=== PATIENT | female | born 1940 | race Caucasian/White ===

== ENCOUNTER 2019-02-08 16:23 | Inpatient (IN) | payer MEDICARE ==
[~2019-02-08] VITALS: Ht 154.9 cm; Wt 107.2 kg
--- NOTE | 2019-02-08 16:39 | PHYS DOC ---
Adult General Chief Complaint Chief Complaint: SHORTNESS OF BREATH HPI HPI Patient is a 79 year old female who presents with complaining of coughing about and low oxygen. Patient is a resident of associated living home and complaining of several episodes of hemoptysis this morning with mix of bright red blood and mucus with few episode this afternoon. Patient complaining of marked shortness of breath without chest pain, fever, lower extremity edema or pain, sore throat , nasal congestion. The facility staff reported that patient had O2 sat of 88-91 % on her usual 3 L of oxygen and her primary care physician, Dr. Atkinson was informed and recommended to send patient to ER for evaluation. Review of Systems Review of Systems Constitutional: Denies fever or chills [] Eyes: Denies change in visual acuity, redness, or eye pain [] HENT: Denies nasal congestion or sore throat [] Respiratory: Reports cough and shortness of breath[] Cardiovascular: No additional information not addressed in HPI [] GI: Denies abdominal pain, nausea, vomiting, bloody stools or diarrhea [] : Denies dysuria or hematuria [] Musculoskeletal: Denies back pain or joint pain [] Integument: Denies rash or skin lesions [] Neurologic: Denies headache, focal weakness or sensory changes [] Endocrine: Denies polyuria or polydipsia [] All other systems were reviewed and found to be within normal limits, except as documented in this note. Physical Exam Physical Exam Constitutional: Well developed, well nourished, mild distress, non-toxic appearance. [] HENT: Normocephalic, atraumatic, oropharynx moist, no oral exudates, nose normal. [] Eyes: PERRLA, EOMI, conjunctiva normal, no discharge. [] Neck: Normal range of motion, no tenderness, supple, no stridor. [] Cardiovascular:Heart rate regular rhythm, no murmur [] Lungs & Thorax: Mild bilateral rhonchi with decreased air movement, no respiratory distress or intercostal retraction or wheezing[] Abdomen: Bowel sounds normal, soft, no tenderness, no masses, no pulsatile masses. [] Skin: Warm, dry, no erythema, no rash. [] Back: No tenderness, no CVA tenderness. [] Extremities: No tenderness, no cyanosis, no clubbing, ROM intact, no edema. [] Neurologic: Alert and oriented X 3, normal motor function, normal sensory function, no focal deficits noted. [] Psychologic: Affect normal, judgement normal, mood normal. [] EKG EKG EKG interpreted by me. EKG at 1648 showed normal sinus rhythm at rate of 78, no acute ST and T-wave abnormalities. Radiology/Procedures Radiology/Procedures [address] [address] IMAGING REPORT Signed PATIENT: BOBBI EASTMAN ACCOUNT: [id number] : 1940 LOCATION: ER AGE: 79 SEX: F EXAM STATUS: REG ER ORD. PHYSICIAN: PAUL CLEMONS MD REASON: shortness of breath PROCEDURE: CHEST PA & LATERAL EXAM: PA and Lateral Views of the Chest DATE: 02/08/2019 4:40 PM INDICATION: COUGH, SHORT OF BREATH, COUGHED UP BLOOD THIS MORNING, HX COPD. FORMER SMOKER COMPARISON: 12/13/2018 FINDINGS/ IMPRESSION: 1. The heart is not enlarged. 2. Atherosclerotic calcifications of the tortuous aorta are seen. 3. No lobar consolidation. Linear opacities in the lung bases likely subsegmental atelectasis or scarring. 4. Although no obvious lung mass is identified, CT is more sensitive. 5. No pleural effusion or pneumothorax. Electronically signed by: Mason Lunsford MD (02/08/2019 5:20 PM) [facility] DICTATED AND SIGNED BY: MASON LUNSFORD MD DATE: 02/08/19 7974 CC: PAUL CLEMONS MD; JACE ATKINSON MD ~ Course & Med Decision Making Course & Med Decision Making Pertinent Labs and Imaging studies reviewed. (See chart for details) Evaluation of patient in ER showed 79-year-old female patient with complaining of hemoptysis and hypoxia since this morning. Patient had O2 sat of 91% on 3 L of oxygen that improved with nebulizer treatment and Solu-Medrol to 98%. Patient did not have lower extremity edema or tenderness. D-dimer was markedly elevated. Plan to obtain VQ scan and admit patient with diagnosis of COPD exacerbation. Dr. Atkinson accepted admission at 1750. Dragon Disclaimer Dragon Disclaimer This electronic medical record was generated, in whole or in part, using a voice recognition dictation system. Departure Departure: Impression: Primary Impression: COPD exacerbation Additional Impressions: Hemoptysis Hypoxia Renal insufficiency Disposition: ADMITTED INPATIENT (at 1755) Admitting Physician: Jace Atkinson (accepted admission at 1750) Condition: IMPROVED Referrals: JACE ATKINSON MD (PCP) Problem Qualifiers PAUL CLEMONS MD Feb 08, 2019 16:39
[2019-02-08] MEDS ORDERED: IPRATRPIUM/ALBUTEROL 0.5/2.5MG 3 ML NEBU. NEB ONE (17:00)
[2019-02-08] MEDS ORDERED: methylPREDNISolone SOD SUCC PF 125 MG/2 ML VIAL. IV ONE (17:00)
[2019-02-08 17:14] LABS: BGAS PH 7.45 (7.35-7.45)
[2019-02-08 17:18] LABS: BASO # 0.1 x10^3/uL (0.0-0.2); BASO % 1 % (0-3); EOS # 0.2 x10^3/uL (0.0-0.7); EOS % 2 % (0-3); HEMATOCRIT 37.5 % (36.0-47.0); HEMOGLOBIN 12.8 g/dL (12.0-15.5); LYMPH # 1.8 x10^3/uL (1.0-4.8); LYMPH % 18 % (24-48); MEAN CORPUSCULAR HEMOGLOBIN 31 pg (25-35); MEAN CORPUSCULAR HGB CONC 34 g/dL (31-37); MEAN CORPUSCULAR VOLUME 92 fL (79-100); MONO # 0.9 x10^3/uL (0.0-1.1); MONO % 9 % (0-9); NEUT # 6.9 x10^3uL (1.8-7.7); NEUT % 70 % (31-73); PLATELET COUNT 268 x10^3/uL (140-400); RED BLOOD COUNT 4.07 x10^6/uL (3.50-5.40); RED CELL DISTRIBUTION WIDTH 14.7 % (11.5-14.5); WHITE BLOOD COUNT 9.8 x10^3/uL (4.0-11.0)
--- NOTE | 2019-02-08 17:23 | RAD ---
EXAM: PA and Lateral Views of the Chest DATE: 02/08/2019 4:40 PM INDICATION: COUGH, SHORT OF BREATH, COUGHED UP BLOOD THIS MORNING, HX COPD. FORMER SMOKER COMPARISON: 12/13/2018 FINDINGS/ IMPRESSION: 1. The heart is not enlarged. 2. Atherosclerotic calcifications of the tortuous aorta are seen. 3. No lobar consolidation. Linear opacities in the lung bases likely subsegmental atelectasis or scarring. 4. Although no obvious lung mass is identified, CT is more sensitive. 5. No pleural effusion or pneumothorax. Electronically signed by: Mason Baltazar MD (02/08/2019 5:20 PM) [facility]
[2019-02-08 17:31] LABS: ALBUMIN 3.5 g/dL (3.4-5.0); ALBUMIN/GLOBULIN RATIO 0.9 (1.0-1.7); CALCIUM 9.8 mg/dL (8.5-10.1); CREATININE 1.5 mg/dL (0.6-1.0); GFR 33.4; POTASSIUM 4.3 mmol/L (3.5-5.1); TOTAL BILIRUBIN 0.3 mg/dL (0.2-1.0); TOTAL PROTEIN 7.6 g/dL (6.4-8.2)
[2019-02-08 18:53] VITALS: BP 119/73
[2019-02-08] MEDS ORDERED: SPIR25TA5 PO (19:19)
[2019-02-08] MEDS ORDERED: LEVO150T5 PO (19:19)
[2019-02-08] MEDS ORDERED: METO2.5T PO (19:19)
[2019-02-08] MEDS ORDERED: IPRA3AMP29 NEB (19:19)
[2019-02-08] MEDS ORDERED: MULT-503 PO (19:19)
[2019-02-08] MEDS ORDERED: GABA-586 PO (19:19)
[2019-02-08] MEDS ORDERED: ACET325T9 PO (19:19)
[2019-02-08] MEDS ORDERED: BUDE10.2 IH (19:19)
[2019-02-08] MEDS ORDERED: vitamin b6 PO (19:19)
[2019-02-08] MEDS ORDERED: ROPI0.5T PO (19:19)
[2019-02-08] MEDS ORDERED: FURO-68 PO (19:19)
[2019-02-08] MEDS ORDERED: FEBU40TA PO (19:26)
[2019-02-08] MEDS ORDERED: DOCU-153 PO (19:26)
[2019-02-08] MEDS ORDERED: POTA20TA4 PO (19:26)
[2019-02-08] MEDS ORDERED: FEBU80TA2 PO (19:26)
[2019-02-08] MEDS ORDERED: ATOR20TA58 PO (19:26)
[2019-02-08] MEDS ORDERED: DEXL60CA2 PO (19:26)
[2019-02-08] MEDS ORDERED: MAGN400C PO (19:26)
[2019-02-08] MEDS ORDERED: ASPI-630 PO (19:26)
[2019-02-08] MEDS ORDERED: TRIA1CAP3 PO (19:26)
[2019-02-08] MEDS ORDERED: ESCITALOPRAM OXA5 MG PO (19:26)
[2019-02-08] MEDS ORDERED: MULT1TAB52 PO (19:26)
[2019-02-08] MEDS ORDERED: FERR89TA PO (19:26)
[2019-02-08] MEDS ORDERED: GABA-585 PO (19:26)
[2019-02-08] MEDS ORDERED: ATEN25TA42 PO (19:26)
[2019-02-08] MEDS ORDERED: LEVO75TA5 PO (19:26)
[2019-02-08] MEDS ORDERED: UMEC62.5 IH (19:26)
[2019-02-08] MEDS ORDERED: ACETAMINOPHEN 325 MG TABLET PO PRN (20:15)
[2019-02-08] MEDS: IPRATRPIUM/ALBUTEROL 0.5/2.5MG 3 ML NEBU. NEB SCH (20:34)
[2019-02-08] MEDS ORDERED: NON FORMULARY ITEM (Budesonide/Formoterol Fumarate (Symbicort 160-4.5 Mcg Inhaler) 2 PUFF) IH SCH (21:00)
[2019-02-08] MEDS ORDERED: rOPINIRole 0.5 MG TABLET. PO SCH (21:00)
[2019-02-08] MEDS: FUROSEMIDE 40 MG TABLET PO SCH (21:35)
[2019-02-08] MEDS: MAGNESIUM OXIDE 400 MG TABLET PO SCH (21:35)
[2019-02-08] MEDS: ATORVASTATIN CALCIUM 20 MG TABLET PO SCH (21:35)
[2019-02-08] MEDS: POTASSIUM CHLORIDE 20 MEQ TABLET.ER. PO SCH (21:35)
[2019-02-08] MEDS: GABAPENTIN 300 MG CAPSULE. PO SCH (21:36)
[2019-02-08] MEDS: rOPINIRole 1 MG TABLET. PO SCH (21:36)
[2019-02-08] MEDS: GABAPENTIN 100 MG CAPSULE. PO SCH (21:36)
[2019-02-08 22:14] VITALS: BP 99/52
--- NOTE | 2019-02-08 23:13 | RAD ---
Lung scan 02/08/2019 CLINICAL HISTORY: Elevated d-dimer. Shortness of breath. TECHNIQUE: After the administration of 18.5 mCi of xenon-133 gas, ventilation images of both lungs were obtained using radionuclide. After the intravenous administration of 6.2 mCi technetium 99m MAA, perfusion images of both lungs were obtained using the gamma camera. FINDINGS: Comparison is made to PA and lateral chest radiographs from earlier today. This demonstrate borderline cardiomegaly. Left basilar subsegmental atelectasis is noted. No area of consolidation is seen. Homogeneous ventilation/perfusion to both lungs is seen. No perfusion defect is noted. These findings are consistent with a normal lung scan. IMPRESSION: Normal lung scan. Electronically signed by: Markell Rondon MD (02/08/2019 11:11 PM) [facility]
[2019-02-09] MEDS: IPRATRPIUM/ALBUTEROL 0.5/2.5MG 3 ML NEBU. NEB SCH ×5 (04:46→20:09)
[2019-02-09 05:22] VITALS: BP 119/72
[2019-02-09] MEDS ORDERED: LEVOTHYROXINE 150 MCG TABLET PO SCH (06:00)
[2019-02-09] MEDS ORDERED: MULTIVITS TH W FE OTHER MIN PO SCH (09:00)
[2019-02-09] MEDS ORDERED: FEBUXOSTAT 40 MG TABLET PO SCH (09:00)
[2019-02-09] MEDS ORDERED: NON FORMULARY ITEM (Umeclidinium Bromide (Incruse Ellipta) 62.5 MCG) IH SCH (09:00)
[2019-02-09] MEDS: CITALOPRAM 10 MG TABLET. PO SCH (09:02)
[2019-02-09] MEDS: TRIAMTERENE/HCTZ 37.5/25MG TABLET. PO SCH (09:02)
[2019-02-09] MEDS: GABAPENTIN 100 MG CAPSULE. PO SCH ×2 (09:02→20:58)
[2019-02-09] MEDS: PANTOPRAZOLE 40 MG TABLET. PO SCH (09:03)
[2019-02-09] MEDS: SPIRONOLACTONE 25 MG TABLET PO SCH (09:03)
[2019-02-09] MEDS: DOCUSATE SODIUM 100 MG CAPSULE PO SCH ×2 (09:03→21:03)
[2019-02-09] MEDS: POTASSIUM CHLORIDE 20 MEQ TABLET.ER. PO SCH ×3 (09:03→21:02)
[2019-02-09] MEDS: ASPIRIN 81 MG TAB.CHEW PO SCH (09:03)
[2019-02-09] MEDS: FERROUS SULFATE 325 MG TABLET. PO SCH (09:03)
[2019-02-09] MEDS: ATENOLOL 25 MG TABLET PO SCH (09:04)
[2019-02-09] MEDS: FUROSEMIDE 40 MG TABLET PO SCH ×2 (09:04→21:00)
[2019-02-09] MEDS: PYRIDOXINE 50 MG TABLET. PO SCH (09:04)
[2019-02-09] MEDS: MULTIVITAMIN with MINERAL TABLET. PO SCH (09:04)
--- NOTE | 2019-02-09 09:15 | EKG ---
[address] [address] Test Date: 2019-02-08 Test Time: 16:48:21 Pat Name: BOBBI EASTMAN Department: Room: 123 A Gender: F Office Technologist: DONALD : 1940 Requested By: PAUL CLEMONS Order Number: [id number] Reading MD: Nikunj Lopez MD Measurements Intervals Dell Rate: 78 P: 61 ND: 194 QRS: 10 QRSD: 76 T: 64 QT: 398 QTc: 457 Interpretive Statements SINUS RHYTHM Electronically Signed On 02-12-2019 21:57:35 CDT by Nikunj Lopez MD
[2019-02-09 10:27] VITALS: BP 113/67
[2019-02-09] MEDS: BUDESONIDE 0.5 MG/2 ML NEBU NEB SCH ×2 (10:33→20:09)
[2019-02-09] MEDS ORDERED: ACETAMINOPHEN 500 MG TABLET PO PRN (11:00)
[2019-02-09 14:50] VITALS: BP 143/72
--- NOTE | 2019-02-09 15:01 | HP ---
ADMIT DATE: 02/08/2019 HISTORY OF PRESENT ILLNESS: The patient is an 79-year-old female patient, resident at [facility] who has been complaining of recurrent bouts of cough together with hemoptysis. She is also complaining of increasing shortness of breath, but denied any chest pain, denied chills, rigors or fever. Denied any swelling of the legs. Her oxygen saturation was only 88% on 3 liters of oxygen. The patient was evaluated in the Emergency Room where she had had lab work as well as V/Q scan. Her blood gases showed that she is somewhat hypoxic. White cell count was normal and her D-dimer was slightly elevated at 0.63 and therefore, she underwent V/Q scan, which likely did show that there is a homogeneous ventilation perfusion to both lungs. No perfusion defect is noted. These findings are consistent with a normal lung scan. The patient was admitted with COPD exacerbation and was continued on all her medication. She was started on ceftriaxone and methylprednisolone use. We will follow her and monitor her closely. PAST MEDICAL HISTORY: Significant for chronic hypoxic respiratory failure for which she is on home oxygen at 3 liters nasal cannula, chronic obstructive pulmonary disease, chronic diastolic congestive heart failure with ejection fraction on echocardiogram of 50-55%. She has obstructive sleep apnea, chronic bilateral lower extremity edema versus venous insufficiency, hypertension that seems to be well controlled, type 2 diabetes mellitus with hemoglobin A1c at 7.3% for which she was started on Amaryl. She has hyperlipidemia. She did have chronic kidney injury with a serum creatinine of 1.5. PAST SURGICAL HISTORY: Significant for appendectomy, right knee arthroscopic surgery, bilateral cataract extraction, right total knee arthroplasty, left total knee arthroplasty with revision. She has tonsillectomy, oophorectomy, left heart catheterization, right carotid endarterectomy. FAMILY HISTORY: Noncontributory. SOCIAL HISTORY: She is , lives at the assisted living facility. She quit smoking years ago. She does not drink alcohol or use any recreational drugs. REVIEW OF SYSTEMS: The patient denied any blurring of vision. She did have bilateral cataract extraction, but denied any glaucoma or macular degeneration. Denied any earache, tinnitus or sensorineural deafness. Denied any nosebleeds, stuffy nose or postnasal drip. Denied any sore throat, sore tongue, toothache, hoarseness of voice or difficulty swallowing. Denied any nausea, vomiting, diarrhea or constipation. Denied any hematemesis, melena or hematochezia. Denied any dysuria, frequency or hematuria. She is known to have postmenopausal bleeding and is also known to have endometrial dysplasia for which she is scheduled to have total abdominal hysterectomy and bilateral salpingo-oophorectomy at [facility] on 02/27/2019. She did complain of shortness of breath, cough with hemoptysis, but denied any chest pain. Did complain of orthopnea, paroxysmal nocturnal dyspnea. Denied any chills, rigors or fever. PHYSICAL EXAMINATION: GENERAL: On arrival to the Emergency Room, she looked well and was clearly in no apparent respiratory distress, pale, but no jaundice, cyanosis, or thyromegaly. No jugular venous distension. No lower limb edema. VITAL SIGNS: Her heart rate was 88, blood pressure was 132/61, temperature was 98.2, respiratory rate was 18 and oxygen saturation was 90%. HEAD, EYES, EARS, NOSE, AND THROAT: Showed normocephalic, atraumatic. NECK: Supple. HEART: Showed normal first and second heart sounds. No gallop, rub or murmur. CHEST: Shows central trachea, equally reduced expansion, reduced increase sounds with scattered bilateral diffuse rhonchi as well as crepitation mostly in the right side posteriorly. ABDOMEN: Distended, soft, nontender. No guarding or rigidity. No organomegaly. All hernial orifice intact. Bowel sounds normal. NEUROLOGIC: She is awake, alert, responding appropriately. Cranial nerves intact. EXTREMITIES: She moves extremities without difficulty. She ambulates with a walker. LABORATORY DATA: On arrival showed blood gases with a pH of 7.45, pCO2 of 41, pO2 of 67, bicarbonate 29 and oxygen saturation was 94% on FiO2 of 32%. Her white cell count was 9800, hemoglobin 12.8, hematocrit 37, MCV 92, and platelet count 268,000. Her serum sodium was 139, potassium 4.3, chloride 100, bicarbonate 31, anion gap of 8, BUN 32, creatinine 1.5, estimated GFR was 33 mL per minute. Her glucose was 95, calcium was 9.8. Total bilirubin, AST, ALT, alkaline phosphatase were normal. Her troponin was less than 0.017. Beta natriuretic peptide was 133. Total protein was 7.6, albumin 3.5. Her prothrombin time was 9.8, INR of 1, aPTT was 28 and D-dimer was 0.63. Her nasal screen for MRSA PCR was negative. Her chest x-ray showed that the heart is not enlarged. She has atherosclerotic calcification of the tortuous aorta is seen. No lobar consolidation linear opacities in the lung bases, likely subsegmental atelectasis or scarring. There is no obvious lung mass identified. No pleural effusion or pneumothorax. Given that her D-dimer was slightly elevated and she has hemoptysis and her kidney function is abnormal, we did a ventilation perfusion scan, which showed that there is homogenous ventilation/perfusion to both lungs. No perfusion defect is noted. These findings are consistent with a normal lung scan. ASSESSMENT AND PLAN: The patient was admitted with acute bronchitis with hemoptysis, chronic obstructive pulmonary disease exacerbation, acute on chronic hypoxic respiratory failure. She was started on IV Solu-Medrol as well as ceftriaxone and Zithromax. We will continue with her all medications. Follow her closely. ANDRÉS HERNANDEZ MD DR: JENNIFER/shari JOB#: [id number] / [id number]
[2019-02-09] MEDS ORDERED: POLYETHYLENE GLYCOL 3350 17 GM PACKET. ONE (15:15)
[2019-02-09] MEDS ORDERED: methylPREDNISolone SOD SUCC PF 40 MG/ML VIAL. IV ONE (15:15)
[2019-02-09] MEDS ORDERED: AZITHROMYCIN 250 MG TABLET. PO ONE (15:15)
[2019-02-09 19:40] VITALS: BP 104/65
[2019-02-09] MEDS: GABAPENTIN 300 MG CAPSULE. PO SCH (21:02)
[2019-02-09] MEDS: ATORVASTATIN CALCIUM 20 MG TABLET PO SCH (21:02)
[2019-02-09] MEDS: MAGNESIUM OXIDE 400 MG TABLET PO SCH (21:03)
--- NOTE | 2019-02-09 21:13 | PN ---
DATE: 02/09/2019 SUBJECTIVE: The patient is resting slightly propped up in bed, in no apparent distress. She continued to have cough with some hemoptysis. She has shortness of breath, chest tightness, and wheezing. When I examined her, she looked somewhat pale, but no jaundice, cyanosis, or thyromegaly. No jugular venous distension. No lower limb edema. PHYSICAL EXAMINATION: VITAL SIGNS: Her heart rate was 78, blood pressure 113/67, temperature was 97.8, respiratory rate 22 and oxygen saturation was 92% on 4 liters of oxygen. HEAD, EYES, EARS, NOSE AND THROAT: Showed normocephalic, atraumatic. NECK: Supple. HEART: Showed normal first and second heart sounds. No gallop, rub or murmur. CHEST: Shows central trachea, equally reduced expansion, reduced air entry, vesicular sounds with diffuse scattered rhonchi and crepitation mostly in the right side posteriorly. ABDOMEN: Distended, soft, nontender. No guarding or rigidity. No organomegaly. All hernial orifices intact. Bowel sounds normal. NEUROLOGIC: She was awake, alert, responding appropriately. All cranial nerves intact. She moves extremities without difficulty. She ambulates with a walker. Her intake over the last 24 hours and output were incompletely recorded. LABORATORY DATA: She has no lab work done today. Her blood sugar seems to be reasonably controlled. ASSESSMENT: 1. Acute on chronic hypoxic respiratory failure, acute bronchitis with hemoptysis. No evidence of pulmonary emboli or obvious infiltrate or masses. 2. Chronic obstructive pulmonary disease exacerbation. The patient has multiple other medical problems including chronic diastolic congestive heart failure with an ejection fraction of 50-55%, obstructive sleep apnea, chronic bilateral lower extremity edema versus venous insufficiency, hypertension, type 2 diabetes mellitus, hyperlipidemia, and chronic kidney disease as well as endometrial dysplasia. We will continue with steroids, IV ceftriaxone and oral Zithromax. Continue with steroids and bronchodilators. We will evaluate her again tomorrow and decide the further management accordingly. ANDRÉS HERNANDEZ MD DR: JENNIFER/shari JOB#: [id number] / [id number]
[2019-02-09] MEDS: rOPINIRole 1 MG TABLET. PO SCH (21:28)
[2019-02-09] MEDS: methylPREDNISolone SOD SUCC PF 40 MG/ML VIAL. IV SCH (21:28)
[2019-02-09 23:34] VITALS: BP 112/63
[2019-02-10] MEDS: IPRATRPIUM/ALBUTEROL 0.5/2.5MG 3 ML NEBU. NEB SCH ×2 (04:10→10:38)
[2019-02-10 04:34] VITALS: BP 118/68
[2019-02-10] MEDS: methylPREDNISolone SOD SUCC PF 40 MG/ML VIAL. IV SCH ×2 (05:39→14:00)
[2019-02-10] MEDS ORDERED: LEVOTHYROXINE 150 MCG TABLET PO SCH (06:00)
[2019-02-10 06:31] LABS: HEMATOCRIT 36.9 % (36.0-47.0); HEMOGLOBIN 12.6 g/dL (12.0-15.5); RED BLOOD COUNT 3.97 x10^6/uL (3.50-5.40); RED CELL DISTRIBUTION WIDTH 14.9 % (11.5-14.5); WHITE BLOOD COUNT 12.6 x10^3/uL (4.0-11.0)
[2019-02-10 06:37] LABS: CALCIUM 9.7 mg/dL (8.5-10.1); CREATININE 1.5 mg/dL (0.6-1.0); GFR 33.4; POTASSIUM 4.9 mmol/L (3.5-5.1)
[2019-02-10] MEDS: PANTOPRAZOLE 40 MG TABLET. PO SCH (08:16)
[2019-02-10] MEDS: SPIRONOLACTONE 25 MG TABLET PO SCH (08:17)
[2019-02-10] MEDS: FUROSEMIDE 40 MG TABLET PO SCH ×2 (08:17→12:20)
[2019-02-10] MEDS: TRIAMTERENE/HCTZ 37.5/25MG TABLET. PO SCH (08:17)
[2019-02-10] MEDS: FERROUS SULFATE 325 MG TABLET. PO SCH (08:17)
[2019-02-10] MEDS: CITALOPRAM 10 MG TABLET. PO SCH (08:17)
[2019-02-10] MEDS: DOCUSATE SODIUM 100 MG CAPSULE PO SCH ×2 (08:17→08:20)
[2019-02-10] MEDS: ATENOLOL 25 MG TABLET PO SCH (08:18)
[2019-02-10] MEDS: ASPIRIN 81 MG TAB.CHEW PO SCH (08:18)
[2019-02-10] MEDS: POTASSIUM CHLORIDE 20 MEQ TABLET.ER. PO SCH ×2 (08:18→14:00)
[2019-02-10] MEDS: MULTIVITAMIN with MINERAL TABLET. PO SCH (08:19)
[2019-02-10] MEDS: PYRIDOXINE 50 MG TABLET. PO SCH (08:19)
[2019-02-10] MEDS ORDERED: POLYETHYLENE GLYCOL 3350 17 GM PACKET. PO SCH (09:00)
[2019-02-10] MEDS ORDERED: FEBUXOSTAT 40 MG TABLET PO SCH (09:00)
[2019-02-10] MEDS ORDERED: GABAPENTIN 100 MG CAPSULE. PO SCH (09:00)
[2019-02-10] MEDS ORDERED: metOLazone 2.5 MG TABLET PO SCH (09:00)
[2019-02-10 10:02] VITALS: BP 126/69
[2019-02-10] MEDS: BUDESONIDE 0.5 MG/2 ML NEBU NEB SCH (10:38)
[2019-02-10] MEDS ORDERED: CEFP200T PO (14:11)
[2019-02-10] MEDS ORDERED: AZIT250T PO (14:11)
[2019-02-10] MEDS ORDERED: PRED20TA PO (14:12)
--- NOTE | 2019-02-10 15:21 | DS ---
DATE OF DISCHARGE: 02/10/2019 HOSPITAL COURSE: The patient is an 79-year-old female patient, who currently resides at [facility] and who has been complaining of recurrent bouts of cough with greenish sputum, tinged with blood and also shortness of breath. She was also hypoxic and therefore, she was seen in the Emergency Room and her blood gases were essentially unremarkable. Her white cell count was normal, and D-dimer was slightly elevated at 0.63 and therefore we did a V/Q scan, which also showed that she has homogenous ventilation perfusion to both lungs seen. No perfusion defect is noted. These findings are consistent with normal lung scan. We did start her with antibiotic in the form of cefpodoxime. In fact we started her on Rocephin as well as Zithromax as well as steroids and she did generally very well. Her cough has largely subsided. Her sputum has improved. She has only 1 episode of small amount of tinged blood sputum this morning and she felt generally well and would like to go home as she has birthday tomorrow with her family and therefore, a decision was made to discharge her home to continue on oral antibiotic and tapering course of steroids. PHYSICAL EXAMINATION: GENERAL: When I saw her this afternoon, she was sitting at the edge of the bed comfortably, in no apparent respiratory distress. She is awake, alert, responding appropriately. There was no pallor, jaundice, cyanosis, or thyromegaly. No jugular venous distension. No lower limb edema. VITAL SIGNS: Her heart rate was 81, blood pressure was 126/69, temperature was 97.6, respiratory rate 20, and oxygen saturation was 94% on 3 liters of oxygen. HEAD, EYES, EARS, NOSE AND THROAT: Showed normocephalic, atraumatic. NECK: Supple. HEART: Showed normal first and second heart sounds. No gallop, rub or murmur. CHEST: Shows central trachea, equally reduced expansion, reduced air entry, vesicular breath sounds, very few scattered rhonchi, much improved compared to the day of admission. NEUROLOGIC: She is awake, alert, responding appropriately. Cranial nerves intact. EXTREMITIES: She moves extremities without difficulty. She ambulates with a walker. LABORATORY DATA: Her lab work this morning showed a white cell count of 12,600, hemoglobin 12.6, hematocrit 36, MCV 93, and platelet count 247,000. Serum sodium was 139, potassium 4.9, chloride 101, bicarbonate 32, anion gap of 6, BUN 43, creatinine 1.5, estimated GFR was 53 mL per minute. Her glucose was 200, calcium was 9.7. DISCHARGE MEDICATIONS: She was discharged home to continue on Zithromax 250 mg once a day for 4 more days, Vantin 100 mg once a day for 7 more days, prednisone tapering fashion as directed, Tylenol 500 mg every 6 hours, aspirin 81 mg once a day, atenolol 25 mg daily, atorvastatin calcium 20 mg at bedtime, Symbicort 160/4.5 two puffs twice a day, Dexilant 60 mg once a day, Colace 200 mg daily, citalopram oxalate 5 mg daily, Uloric 80 mg once every other day, ferrous fumarate 106 mg daily, furosemide 40 mg twice a day, gabapentin 300 mg at bedtime, gabapentin 100 mg twice a day, ipratropium bromide, albuterol sulfate by nebulizer 4 times a day, levothyroxine sodium 225 mcg once a day, magnesium oxide 400 mg once a day, metolazone 2.5 mg every Wednesday, multivitamin 1 tablet once a day, potassium chloride 20 mEq once a day, Requip 0.5 mg, she takes one and a half tablets for restless leg syndrome; spironolactone 25 mg daily, triamterene/hydrochlorothiazide 37.5/25 one capsule daily and Incruse Ellipta 62.5 mcg once a day and vitamin B6 is 100 mg once a day. FINAL DISCHARGE DIAGNOSES: 1. Acute on chronic hypoxic respiratory failure. 2. Acute bronchitis with hemoptysis, no evidence of pulmonary embolism or obvious infiltrate or masses. 3. Chronic obstructive pulmonary disease exacerbation. 4. The patient has multiple other medical problems including: A. Chronic diastolic congestive heart failure with an ejection fraction of 50%-55%. B. Obstructive sleep apnea. C. chronic bilateral lower extremity edema versus venous insufficiency. D. Hypertension. E. Type 2 diabetes mellitus. F. Hyperlipidemia. G. Chronic kidney disease. H. Endometrial dysplasia for which she has an appointment for a total abdominal hysterectomy at [facility] on 02/27/2019. ANDRÉS HERNANDEZ MD DR: JENNIFER/shari JOB#: [id number] / [id number]
[2019-02-10] MEDS ORDERED: LACTOBACILLUS RHAMNOSUS GG 1 CAPSULE. PO SCH (21:00)
[2019-02-13] MEDS ORDERED: LEVOTHYROXINE 75 MCG TABLET PO SCH (06:00)
[2019-02-15] MEDS ORDERED: LEVOTHYROXINE 150 MCG TABLET PO SCH (06:00)
== END 2019-02-10 15:25 | disposition home or self-care (01) | DRG 189 ==
LOC: ER 16:23 → 1 SOUTH 17:53
PROVIDERS: ADMIT Internal Medicine; ATTEND Internal Medicine
DX: J96.21 Acute and chronic respiratory failure with hypoxia (principal); J44.1 Chronic obstructive pulmonary disease with (acute) exacerbation; J44.0 Chronic obstructive pulmonary disease with (acute) lower respiratory infection; I13.0 Hypertensive heart and chronic kidney disease with heart failure and stage 1 through stage 4 chronic kidney disease, or unspecified chronic kidney disease; I50.32 Chronic diastolic (congestive) heart failure; R04.2 Hemoptysis; E11.22 Type 2 diabetes mellitus with diabetic chronic kidney disease; E78.5 Hyperlipidemia, unspecified; G47.33 Obstructive sleep apnea (adult) (pediatric); J20.9 Acute bronchitis, unspecified; N18.9 Chronic kidney disease, unspecified; Z87.891 Personal history of nicotine dependence; Z90.710 Acquired absence of both cervix and uterus; Z96.653 Presence of artificial knee joint, bilateral; Z98.41 Cataract extraction status, right eye; Z98.42 Cataract extraction status, left eye; Z99.81 Dependence on supplemental oxygen; Z90.49 Acquired absence of other specified parts of digestive tract
CPT/HCPCS: 36415; 71046; 78582; 80048; 80053; 82803; 82947; 83880; 84484; 85025; 85027; 85379; 85610; 85730; 87641; 93005; 94640; 96374; A9540; A9558; J0456; J0696; J2920; J2930; J7620; J7626; 99285-25

== ENCOUNTER 2019-03-10 18:15 | Inpatient (IN) | payer MEDICARE ==
[~2019-03-10] VITALS: Ht 154.9 cm; Wt 107.8 kg
[~2019-03-10 18:15] MED LIST: ACET325T9 PO; ASPI-630 PO; ATEN25TA42 PO; ATOR20TA58 PO; AZIT250T PO; BUDE10.2 IH; CEFP200T PO; DEXL60CA2 PO; DOCU-153 PO; ESCITALOPRAM OXA5 MG PO; FEBU40TA PO; FEBU80TA2 PO; FERR89TA PO; FURO-68 PO; GABA-585 PO; GABA-586 PO; IPRA3AMP29 NEB; LEVO150T5 PO; LEVO75TA5 PO; MAGN400C PO; METO2.5T PO; MULT-503 PO; MULT1TAB52 PO; POTA20TA4 PO; PRED20TA PO; ROPI0.5T PO; SPIR25TA5 PO; TRIA1CAP3 PO; UMEC62.5 IH; vitamin b6 PO
[2019-03-10 19:19] VITALS: BP 139/61
[2019-03-10] MEDS ORDERED: FUROSEMIDE 40 MG/4 ML VIAL IVP ONE (19:30)
[2019-03-10] MEDS ORDERED: MAGN400C PO (20:01)
[2019-03-10] MEDS ORDERED: ATEN25TA42 PO (20:01)
[2019-03-10] MEDS ORDERED: FERR325T14 PO (20:01)
[2019-03-10] MEDS ORDERED: GLIM1TAB2 PO (20:01)
[2019-03-10] MEDS ORDERED: ROPI3TAB4 PO (20:01)
[2019-03-10] MEDS ORDERED: CHOL20002 PO (20:01)
[2019-03-10 20:14] LABS: BASO # 0.1 x10^3/uL (0.0-0.2); BASO % 1 % (0-3); EOS # 0.2 x10^3/uL (0.0-0.7); EOS % 3 % (0-3); HEMATOCRIT 37.7 % (36.0-47.0); HEMOGLOBIN 12.8 g/dL (12.0-15.5); LYMPH # 1.5 x10^3/uL (1.0-4.8); LYMPH % 21 % (24-48); MEAN CORPUSCULAR HEMOGLOBIN 31 pg (25-35); MEAN CORPUSCULAR HGB CONC 34 g/dL (31-37); MEAN CORPUSCULAR VOLUME 92 fL (79-100); MONO # 0.7 x10^3/uL (0.0-1.1); MONO % 10 % (0-9); NEUT # 4.9 x10^3uL (1.8-7.7); NEUT % 66 % (31-73); PLATELET COUNT 214 x10^3/uL (140-400); RED BLOOD COUNT 4.11 x10^6/uL (3.50-5.40); RED CELL DISTRIBUTION WIDTH 14.7 % (11.5-14.5); WHITE BLOOD COUNT 7.3 x10^3/uL (4.0-11.0)
[2019-03-10 20:35] LABS: ALBUMIN 3.3 g/dL (3.4-5.0); ALBUMIN/GLOBULIN RATIO 0.8 (1.0-1.7); CREATININE 1.6 mg/dL (0.6-1.0); POTASSIUM 3.2 mmol/L (3.5-5.1); TOTAL BILIRUBIN 0.4 mg/dL (0.2-1.0); TOTAL PROTEIN 7.3 g/dL (6.4-8.2)
[2019-03-10] MEDS: IPRATRPIUM/ALBUTEROL 0.5/2.5MG 3 ML NEBU. NEB SCH (21:00)
[2019-03-10] MEDS ORDERED: NON FORMULARY ITEM (Budesonide/Formoterol Fumarate (Symbicort 160-4.5 Mcg Inhaler) 2 PUFF) IH SCH (21:00)
[2019-03-10] MEDS: ATORVASTATIN CALCIUM 20 MG TABLET PO SCH (21:11)
[2019-03-10] MEDS: GABAPENTIN 300 MG CAPSULE. PO SCH (21:11)
[2019-03-10] MEDS: POTASSIUM CHLORIDE 20 MEQ TABLET.ER. PO SCH (21:12)
[2019-03-10] MEDS ORDERED: NITROGLYCERIN OINT 1 GM PACKET. ONE (21:13)
[2019-03-10] MEDS: NITROGLYCERIN OINT 1 GM PACKET. TP SCH (21:14)
[2019-03-10 23:00] VITALS: BP 145/68
[2019-03-11 05:20] VITALS: BP 120/56
[2019-03-11] MEDS: NITROGLYCERIN OINT 1 GM PACKET. TP SCH (06:00)
[2019-03-11] MEDS: LEVOTHYROXINE 150 MCG TABLET PO SCH (06:46)
[2019-03-11 07:42] LABS: BASO # 0.1 x10^3/uL (0.0-0.2); BASO % 1 % (0-3); EOS # 0.2 x10^3/uL (0.0-0.7); EOS % 3 % (0-3); HEMATOCRIT 36.7 % (36.0-47.0); HEMOGLOBIN 12.5 g/dL (12.0-15.5); LYMPH # 1.5 x10^3/uL (1.0-4.8); LYMPH % 21 % (24-48); MEAN CORPUSCULAR HEMOGLOBIN 31 pg (25-35); MEAN CORPUSCULAR HGB CONC 34 g/dL (31-37); MEAN CORPUSCULAR VOLUME 92 fL (79-100); MONO # 0.8 x10^3/uL (0.0-1.1); MONO % 11 % (0-9); NEUT # 4.3 x10^3uL (1.8-7.7); NEUT % 64 % (31-73); PLATELET COUNT 200 x10^3/uL (140-400); RED BLOOD COUNT 3.99 x10^6/uL (3.50-5.40); RED CELL DISTRIBUTION WIDTH 14.8 % (11.5-14.5); WHITE BLOOD COUNT 6.8 x10^3/uL (4.0-11.0)
[2019-03-11 07:50] LABS: CALCIUM 8.9 mg/dL (8.5-10.1); CREATININE 1.5 mg/dL (0.6-1.0); GFR 33.4; POTASSIUM 3.3 mmol/L (3.5-5.1)
[2019-03-11] MEDS: FEBUXOSTAT 40 MG TABLET PO SCH (08:56)
[2019-03-11] MEDS: PYRIDOXINE 50 MG TABLET. PO SCH (08:56)
[2019-03-11] MEDS: CITALOPRAM 10 MG TABLET. PO SCH (08:56)
[2019-03-11] MEDS: PANTOPRAZOLE 40 MG TABLET. PO SCH (08:57)
[2019-03-11] MEDS: MULTIVITAMIN with MINERAL TABLET. PO SCH (08:57)
[2019-03-11] MEDS: FUROSEMIDE 40 MG/4 ML VIAL IVP SCH ×2 (08:57→14:02)
[2019-03-11] MEDS: GABAPENTIN 100 MG CAPSULE. PO SCH ×2 (08:57→17:56)
[2019-03-11] MEDS: metOLazone 2.5 MG TABLET PO SCH (08:57)
[2019-03-11] MEDS: POTASSIUM CHLORIDE 20 MEQ TABLET.ER. PO SCH ×3 (08:57→20:17)
[2019-03-11] MEDS: DOCUSATE SODIUM 100 MG CAPSULE PO SCH (08:57)
[2019-03-11] MEDS: SPIRONOLACTONE 25 MG TABLET PO SCH (08:57)
[2019-03-11] MEDS: ASPIRIN 81 MG TAB.CHEW PO SCH (08:57)
[2019-03-11] MEDS: ATENOLOL 25 MG TABLET PO SCH (08:58)
[2019-03-11] MEDS ORDERED: NON FORMULARY ITEM (Umeclidinium Bromide (Incruse Ellipta) 62.5 MCG) IH SCH (09:00)
--- NOTE | 2019-03-11 09:14 | PDOC2 ---
CONSULT Date of Admission DATE: 03/11/19 TIME: 09:14 Reason for Consult: Congestive heart failure Referring Physician: Dr. Atkinson Chief Complaint Shortness of breath Source: Chart review, Patient History of Present Illness 79-year-old female with history of chronic diastolic heart failure and COPD, resident of [facility] presented with progressive shortness of breath, 6 pound weight gain and lower extremity edema. She claimed compliance with medications, fluid and salt intake. She also complained of retrosternal chest pressure when her shortness of breath gets worse. She denied any palpitations or syncope. Past Medical History COPD Chronic diastolic heart failure Hypertension Diabetes mellitus type 2 Hyperlipidemia Chronic kidney disease Past Surgical History Appendectomy Cataract extraction Tonsillectomy Carotid endarterectomy Family History Not contributory Social History Patient quit smoking several years ago and denied any alcohol or drug abuse. Current Medications Current Medications Nitroglycerin (Nitro-Bid Oint) 0.5 inch Q6HRS TP Last administered on 03/11/19at 06:00; Start 03/11/19 at 00:00 Furosemide (Lasix) 40 mg 1X ONCE IVP Last administered on 03/10/19at 20:14; Start 03/10/19 at 19:30; Stop 03/10/19 at 19:31; Status DC Furosemide (Lasix) 40 mg BID92 IVP Last administered on 03/11/19at 08:57; Start 03/11/19 at 09:00 Metolazone (Zaroxolyn) 2.5 mg DAILY PO Last administered on 03/11/19at 08:57; Start 03/11/19 at 09:00 Atenolol (Tenormin) 25 mg DAILY PO Last administered on 03/11/19at 08:58; Start 03/11/19 at 09:00 Atorvastatin Calcium (Lipitor) 20 mg QHS PO Last administered on 03/10/19at 21: 11; Start 03/10/19 at 21:00 Febuxostat (Uloric) 40 mg QODAY PO ; Start 03/12/19 at 09:00 Gabapentin (Neurontin) 100 mg BIDAFTMEAL PO Last administered on 03/11/19at 08:57; Start 03/11/19 at 09:00 Gabapentin (Neurontin) 300 mg HS PO Last administered on 03/10/19at 21:11; Start 03/10/19 at 21:00 Albuterol/ Ipratropium (Duoneb) 3 ml QID NEB ; Start 03/10/19 at 21:00 Levothyroxine Sodium (Synthroid) 75 mcg QM@0600 PO ; Start 03/13/19 at 06:00 Potassium Chloride (Klor-Con) 20 meq TID PO Last administered on 03/11/19 08:57; Start 03/10/19 at 21:00 Aspirin (Children'S Aspirin) 81 mg DAILYWBKFT PO Last administered on 03/11/19 08:57; Start 03/11/19 at 08:00 Non-Formulary Medication (Budesonide/ Formoterol Fumarate (Symbicort 160-4.5 Mcg Inhaler)) 2 puff BID IH ; Start 03/10/19 at 21:00; Stop 03/10/19 at 21:00; Status DC Pantoprazole Sodium (Protonix) 40 mg DAILYAC PO Last administered on 03/11/19 08:57; Start 03/11/19 at 07:30 Docusate Sodium (Colace) 200 mg DAILY PO Last administered on 03/11/19 08:57; Start 03/11/19 at 09:00 Citalopram Hydrobromide (CeleXA) 10 mg DAILY PO Last administered on 03/11/19 08:56; Start 03/11/19 at 09:00 Febuxostat (Uloric) 80 mg QODAY PO Last administered on 03/11/19 08:56; Start 03/11/19 at 09:00 Levothyroxine Sodium (Synthroid) 150 mcg QTUTHSASU@0600 PO Last administered on 03/11/19at 06:46; Start 03/11/19 at 06:00 Multivitamins/ Calcium (Thera-M Plus) 1 tab DAILY PO Last administered on 03/11/19 08:57; Start 03/11/19 at 09:00 Spironolactone (Aldactone) 25 mg DAILY PO Last administered on 03/11/19 08:57; Start 03/11/19 at 09:00 Non-Formulary Medication (Umeclidinium Anton (Incruse Ellipta)) 62.5 mcg DAILY IH ; Start 03/11/19 at 09:00; Stop 03/11/19 at 09:00; Status DC Pyridoxine HCl (Vitamin B-6) 100 mg DAILY PO Last administered on 03/11/19at 08:56; Start 03/11/19 at 09:00 Levothyroxine Sodium (Synthroid) 150 mcg QWE@0600 PO ; Start 03/15/19 at 06:00 Levothyroxine Sodium (Synthroid) 150 mcg QFR@0600 PO ; Start 03/17/19 at 06:00 Budesonide (Pulmicort) 0.5 mg RTBID NEB ; Start 03/11/19 at 08:00 Nitroglycerin (Nitro-Bid Oint) 1 inch STK-MED ONCE .ROUTE ; Start 03/10/19 at 21:13; Stop 03/10/19 at 21:14; Status DC Active Scripts Active Reported Vitamin D (Cholecalciferol (Vitamin D3)) 2,000 Unit Tablet 2,000 Unit PO DAILY Atenolol (Atenolol) 25 Mg Tablet 25 Mg PO DAILY Magnesium (Magnesium Oxide) 400 Mg Capsule 100 Mg PO QHS Ferrous Sulfate 325 Mg Tablet 325 Mg PO DAILY Glimepiride 1 Mg Tablet 1 Mg PO DAILY Ropinirole Hcl 3 Mg Tablet 3 Mg PO QHS Uloric (Febuxostat) 40 Mg Tablet 1 Tab PO EVEN DAYS AM Uloric (Febuxostat) 80 Mg Tablet 1 Tab PO ODD DAYS ONLY AM Levothyroxine Sodium 75 Mcg Tablet 1 Tab PO MONDAYS Gabapentin (Gabapentin) 100 Mg Capsule 100 Mg PO BIDAFTMEAL Multivitamins (Multivitamin) 1 Each Tablet 1 Tab PO DAILY Klor-Con M20 (Potassium Chloride) 20 Meq Tab.er.prt 1 Tab PO TID Incruse Ellipta (Umeclidinium Anton) 62.5 Mcg Blst.w.dev 62.5 Mcg IH DAILY Escitalopram Oxalate 5 Mg Tablet 5 Mg PO DAILY Dok (Docusate Sodium) 100 Mg Capsule 200 Mg PO DAILY Dexilant (Dexlansoprazole) 60 Mg Cap.mp 60 Mg PO DAILY Atorvastatin Calcium 20 Mg Tablet 20 Mg PO QHS Atenolol (Atenolol) 25 Mg Tablet 25 Mg PO DAILY Aspirin 81 Mg Tab.chew 81 Mg PO DAILY Spironolactone 25 Mg Tablet 1 Tab PO DAILY Levothyroxine Sodium 150 Mcg Tablet 1 Tab PO T,W,TH,F,SA,SUN Gabapentin (Gabapentin) 300 Mg Capsule 300 Mg PO HS Symbicort 160-4.5 Mcg Inhaler (Budesonide/Formoterol Fumarate) 10.2 Gm Hfa.aer.ad 2 Puff IH BID [vitamin b6] 100 Mg PO DAILY Duoneb 0.5-3(2.5) Mg/3 Ml (Albuterol/Ipratropium) 3 Ml Ampul.neb 3 Ml NEB QID Allergies: Coded Allergies: amoxicillin (Verified Allergy, Intermediate, 02/09/19) clavulanic acid (Verified Allergy, Intermediate, 02/09/19) simvastatin (Verified Allergy, Intermediate, 02/09/19) PSYCHOLOGICAL ROS: No: Hallucinations Eyes: No: Loss of vision HEENT: No: Epistaxis Respiratory: YES: Shortness of breath; No: Hemoptysis Cardiovascular: yes: Chest Pain, Edema; No: Palpitations Gastrointestinal: No: Vomiting, Diarrhea Neurological: No: Seizures Skin: No: Rash General: Alert, Oriented X3 HEENT: Atraumatic, PERRLA Lungs: Other (bilateral basal crepitations) Heart: Regular rate Abdomen: Soft, No tenderness Extremities: Other (1-2+ pitting edema) Neuro: Normal gait Psych/Mental Status: Mood NL VITALS Vital Signs Date Time Temp Pulse Resp B/P (MAP) Pulse Ox O2 Delivery O2 Flow Rate FiO2 03/11/19 08:58 125/63 03/11/19 07:51 Nasal Cannula 3.5 03/11/19 06:00 74 03/11/19 05:20 20 96 03/10/19 19:19 98.6 Labs Laboratory Tests Test 03/10/19 19:50 03/11/19 07:32 White Blood Count 7.3 x10^3/uL (4.0-11.0) 6.8 x10^3/uL (4.0-11.0) Red Blood Count 4.11 x10^6/uL (3.50-5.40) 3.99 x10^6/uL (3.50-5.40) Hemoglobin 12.8 g/dL (12.0-15.5) 12.5 g/dL (12.0-15.5) Hematocrit 37.7 % (36.0-47.0) 36.7 % (36.0-47.0) Mean Corpuscular Volume 92 fL (79-100) 92 fL (79-100) Mean Corpuscular Hemoglobin 31 pg (25-35) 31 pg (25-35) Mean Corpuscular Hemoglobin Concent 34 g/dL (31-37) 34 g/dL (31-37) Red Cell Distribution Width 14.7 % (11.5-14.5) 14.8 % (11.5-14.5) Platelet Count 214 x10^3/uL (140-400) 200 x10^3/uL (140-400) Neutrophils (%) (Auto) 66 % (31-73) 64 % (31-73) Lymphocytes (%) (Auto) 21 % (24-48) 21 % (24-48) Monocytes (%) (Auto) 10 % (0-9) 11 % (0-9) Eosinophils (%) (Auto) 3 % (0-3) 3 % (0-3) Basophils (%) (Auto) 1 % (0-3) 1 % (0-3) Neutrophils # (Auto) 4.9 x10^3uL (1.8-7.7) 4.3 x10^3uL (1.8-7.7) Lymphocytes # (Auto) 1.5 x10^3/uL (1.0-4.8) 1.5 x10^3/uL (1.0-4.8) Monocytes # (Auto) 0.7 x10^3/uL (0.0-1.1) 0.8 x10^3/uL (0.0-1.1) Eosinophils # (Auto) 0.2 x10^3/uL (0.0-0.7) 0.2 x10^3/uL (0.0-0.7) Basophils # (Auto) 0.1 x10^3/uL (0.0-0.2) 0.1 x10^3/uL (0.0-0.2) Sodium Level 140 mmol/L (136-145) 139 mmol/L (136-145) Potassium Level 3.2 mmol/L (3.5-5.1) 3.3 mmol/L (3.5-5.1) Chloride Level 100 mmol/L (98-107) 99 mmol/L (98-107) Carbon Dioxide Level 33 mmol/L (21-32) 33 mmol/L (21-32) Anion Gap 7 (6-14) 7 (6-14) Blood Urea Nitrogen 29 mg/dL (7-20) 28 mg/dL (7-20) Creatinine 1.6 mg/dL (0.6-1.0) 1.5 mg/dL (0.6-1.0) Estimated GFR (Cockcroft-Gault) 31.0 33.4 BUN/Creatinine Ratio 18 (6-20) Glucose Level 144 mg/dL (70-99) 127 mg/dL (70-99) Calcium Level 9.0 mg/dL (8.5-10.1) 8.9 mg/dL (8.5-10.1) Total Bilirubin 0.4 mg/dL (0.2-1.0) Aspartate Amino Transf (AST/SGOT) 24 U/L (15-37) Alanine Aminotransferase (ALT/SGPT) 31 U/L (14-59) Alkaline Phosphatase 93 U/L (46-116) Troponin I Quantitative < 0.017 ng/mL (0-0.055) < 0.017 ng/mL (0-0.055) PB-Lta-O-Type Natriuretic Peptide 258 pg/mL (0-449) Total Protein 7.3 g/dL (6.4-8.2) Albumin 3.3 g/dL (3.4-5.0) Albumin/Globulin Ratio 0.8 (1.0-1.7) Magnesium Level 2.0 mg/dL (1.8-2.4) Assessment/Plan 1. Acute on chronic diastolic heart failure: Recent 2-D echo in November 2018 showed normal LV systolic function with EF of 50-55%. Patient apparently had cardiac catheterization one year ago that did not show any significant coronary artery disease. Continue gentle diuresis with Lasix with close monitoring of BUN/creatinine. 2. Hypertension: Controlled 3. Hyperlipidemia: Continue statin therapy 4. Hypothyroidism: Continue levothyroxine 5. COPD: Treat per IM Thank you for your consultation ROMIE GOINS MD Mar 11, 2019 09:14
[2019-03-11] MEDS: IPRATRPIUM/ALBUTEROL 0.5/2.5MG 3 ML NEBU. NEB SCH ×3 (09:29→20:08)
[2019-03-11] MEDS: BUDESONIDE 0.5 MG/2 ML NEBU NEB SCH ×2 (09:29→20:00)
[2019-03-11 15:51] VITALS: BP 123/59
--- NOTE | 2019-03-11 16:57 | EKG ---
[address] [address] Test Date: 2019-03-10 Test Time: 20:02:21 Pat Name: BOBBI EASTMAN Department: Room: [facility] 1 Gender: F Commercial Assistant: ARNOLDO : 1940 Requested By: ANDRÉS HERNANDEZ Order Number: [id number] Reading MD: Cecil Deleon Measurements Intervals Hardy Rate: 79 P: 54 MA: 184 QRS: 2 QRSD: 84 T: 63 QT: 408 QTc: 469 Interpretive Statements SINUS RHYTHM T ABNORMALITY IN HIGH LATERAL LEADS ABNORMAL ECG RI6.02 Compared to ECG 02/08/2019 16:48:21 T-wave abnormality now present Electronically Signed On 03-15-2019 12:15:17 CDT by Cecil Deleon
[2019-03-11] MEDS: HYDROcodone/APAP 5/325MG 1 TAB TABLET PO PRN ×2 (17:56→23:37)
--- NOTE | 2019-03-11 18:46 | HP ---
ADMIT DATE: 03/11/2019 HISTORY OF PRESENT ILLNESS: The patient is an 79-year-old female patient, a resident at [facility], who apparently started complaining of increasing shortness of breath, marked swelling of both lower extremities. She has gained about 6 pounds. Her shortness of breath is particularly worse on exertion. She desaturates down to 70%, although she denied any chest pain. Did complain of orthopnea and paroxysmal nocturnal dyspnea and the patient was admitted directly for inpatient treatment with IV diuretics and to consult the cardiology team to assist with her management. PAST MEDICAL HISTORY: Significant for chronic hypoxic respiratory failure for which she is on home oxygen 3 liters by nasal cannula, chronic obstructive pulmonary disease, chronic diastolic congestive heart failure with ejection fraction on echocardiogram of 50-55%. She has obstructive sleep apnea, chronic bilateral lower extremity edema versus venous insufficiency, hypertension seems well controlled, type 2 diabetes mellitus with hemoglobin A1c at 7.3% for which she was started on Amaryl. She has hyperlipidemia. She did have chronic kidney injury with serum creatinine of 1.5. PAST SURGICAL HISTORY: Significant for appendectomy, right knee arthroscopic surgery, bilateral cataract extraction, right total knee arthroplasty, left total knee arthroplasty with revision. She has tonsillectomy, oophorectomy, left heart catheterization and right carotid endarterectomy. She also had endometrial biopsy. FAMILY HISTORY: Noncontributory. SOCIAL HISTORY: She is , lives at the [facility]. She quit smoking years ago. She does not drink alcohol or use any recreational drugs. REVIEW OF SYSTEMS: As per history of present illness. ALLERGIES: She is allergic to AMOXICILLIN, CLAVULANIC ACID and SIMVASTATIN. MEDICATIONS: She is currently on following medications: She is on ipratropium bromide, albuterol sulfate 0.5-2.5 mg and 3 mL by nebulizer 4 times a day. Incruse Ellipta 62.5 mg daily, ferrous sulfate 325 mg once a day, atorvastatin calcium 20 mg at bedtime, atenolol 25 mg daily, spironolactone 25 mg daily, aspirin 81 mg once a day, gabapentin 300 mg at bedtime, gabapentin 100 mg twice a day, escitalopram oxalate 5 mg daily, Requip 3 mg at bedtime. She is on potassium chloride 20 mEq 3 times a day, Symbicort 160/4.5 mcg inhaler 2 puffs twice a day, magnesium oxide 400 mg once a day, Colace 200 mg once a day, Dexilant 60 mg once a day, glimepiride 1 mg daily, levothyroxine sodium 150 mcg daily, levothyroxine sodium 75 mcg once a day, cholecalciferol for vitamin D3 2000 international unit once a day, multivitamin 1 tablet once a day, and Uloric 80 mg every other day, Uloric 40 mg on even days in the morning and vitamin B6 for thiamine 100 mg once a day. PHYSICAL EXAMINATION: GENERAL: On arrival to the hospital, the patient was clearly and mildly tachypneic. She was slightly pale, but no jaundice, cyanosis or thyromegaly. No jugular venous distention, marked bilateral lower limb edema. VITAL SIGNS: Her heart rate was 82, blood pressure 139/61, temperature was 98.6, respiratory rate was 22 and oxygen saturation was 96% on 3.5 liters of oxygen. HEAD, EYES, EARS, NOSE, AND THROAT: Showed normocephalic, atraumatic. NECK: Supple. HEART: Showed normal first and second heart sounds. No gallop, rub or murmur. CHEST: Shows central trachea, equally reduced expansion, reduced air entry, vesicular sounds with very few scattered rhonchi. ABDOMEN: Distended, soft, nontender. No guarding or rigidity. No organomegaly. All hernial orifice intact. Bowel sounds normal. NEUROLOGIC: She is awake, alert, responding appropriately. All cranial nerves intact. She ambulates with a walker. LABORATORY DATA: On arrival showed a white cell count 7300, hemoglobin 12.8, hematocrit 37.7, MCV 92, and platelet count 214,000. Her chemistry showed serum sodium of 140, potassium 3.2, chloride 100, bicarbonate 33, anion gap of 7, BUN 29, creatinine 1.6, estimated GFR was 31 mL per minute. Her glucose 144, calcium was 9. Total bilirubin, AST, ALT, alkaline phosphatase were normal. Beta natriuretic peptide was 258. Total protein was 7.3, albumin was 3.3. Her first set of cardiac enzymes showed troponin to be less than 0.017. PLAN: I did switch her to IV Lasix together with metolazone and held her hydrochlorothiazide/triamterene as well as spironolactone. We will monitor her weight and labs on a daily basis. I have also consulted the endorsement clerk. We will do 2 more sets of cardiac enzymes to rule out myocardial infarction. ANDRÉS HERNANDEZ MD DR: JENNIFER/shari JOB#: [id number] / [id number]
[2019-03-11 19:15] VITALS: BP 128/56
[2019-03-11] MEDS: ATORVASTATIN CALCIUM 20 MG TABLET PO SCH (20:16)
[2019-03-11] MEDS: GABAPENTIN 300 MG CAPSULE. PO SCH (20:17)
--- NOTE | 2019-03-11 21:49 | PN ---
DATE: 03/11/2019 SUBJECTIVE: The patient is sitting on the edge of the bed, eating her supper comfortably, in no apparent distress. She is feeling generally better. Her leg swelling is much less. She continued to be short of breath on exertion. PHYSICAL EXAMINATION: GENERAL: When I examined her this afternoon, she looked well and was clearly in no apparent respiratory distress, slightly pale, no jaundice, cyanosis or thyromegaly. No jugular venous distension. Mild bilateral lower limb edema. VITAL SIGNS: Her heart rate was 94, blood pressure was 123/59, temperature was 98, respiratory rate was 20, and her oxygen saturation was 92% on 3.5 liters of oxygen. HEAD, EYES, EARS, NOSE AND THROAT: Showed normocephalic, atraumatic. NECK: Supple. HEART: Showed normal first and second heart sounds. No gallop, rub or murmur. CHEST: Shows central trachea, equally reduced expansion, reduced air entry, very few scattered rhonchi, could not appreciate any crepitation. ABDOMEN: Distended, soft, nontender. No guarding or rigidity. No organomegaly. All hernial orifice intact. Bowel sounds normal. NEUROLOGIC: She is awake, alert, responding appropriately. All cranial nerves are intact. EXTREMITIES: She moves extremities without difficulty. She ambulates with a walker. Her intake over the last 24 hours , output was 1650. LABORATORY DATA: Her lab work this morning showed a white cell count of 6800, hemoglobin 12.5, hematocrit 36.7, MCV 92, and platelet count 200,000. Her chemistry showed a serum sodium 139, potassium 3.3, chloride 99, bicarbonate 33, anion gap of 7, BUN 28, creatinine 1.5, estimated GFR was 33 mL per minute. Her glucose 127, calcium was 8.9, magnesium 2. She has 2 sets of cardiac enzymes, which was less than 0.017. ASSESSMENT: 1. Acute on chronic diastolic heart failure with ejection fraction of 50-55%. The patient is responding well to IV Lasix, we will continue with that today and hopefully tomorrow. 2. Hypertension, well controlled. 3. Hyperlipidemia, on statin. 4. Hypothyroidism, on Synthroid, levothyroxine. We will check her TSH tomorrow. 5. Chronic obstructive pulmonary disease for which she is on bronchodilator. PLAN: My plan is to continue with current treatment and I will repeat all her labs tomorrow including her TSH and decide on further management accordingly. ANDRÉS HERNANDEZ MD DR: JENNIFER/shari JOB#: [id number] / [id number]
[2019-03-11 23:05] VITALS: BP 123/63
[2019-03-12] MEDS: IPRATRPIUM/ALBUTEROL 0.5/2.5MG 3 ML NEBU. NEB SCH ×4 (04:59→19:28)
[2019-03-12] MEDS: LEVOTHYROXINE 150 MCG TABLET PO SCH (05:06)
[2019-03-12] MEDS: HYDROcodone/APAP 5/325MG 1 TAB TABLET PO PRN ×4 (05:12→23:45)
[2019-03-12 05:29] VITALS: BP 147/70
[2019-03-12 06:48] LABS: HEMATOCRIT 36.3 % (36.0-47.0); HEMOGLOBIN 12.2 g/dL (12.0-15.5); RED BLOOD COUNT 3.95 x10^6/uL (3.50-5.40); RED CELL DISTRIBUTION WIDTH 14.9 % (11.5-14.5); WHITE BLOOD COUNT 6.2 x10^3/uL (4.0-11.0)
[2019-03-12 06:59] LABS: CALCIUM 9.2 mg/dL (8.5-10.1); CREATININE 1.7 mg/dL (0.6-1.0); GFR 28.9; POTASSIUM 3.1 mmol/L (3.5-5.1)
[2019-03-12] MEDS ORDERED: POTASSIUM CHLORIDE 20 MEQ TABLET.ER. PO ONE ×2 (07:30→16:30)
[2019-03-12] MEDS: BUDESONIDE 0.5 MG/2 ML NEBU NEB SCH ×2 (08:00→19:28)
[2019-03-12] MEDS: metOLazone 2.5 MG TABLET PO SCH (08:59)
[2019-03-12] MEDS: PANTOPRAZOLE 40 MG TABLET. PO SCH (08:59)
[2019-03-12] MEDS: SPIRONOLACTONE 25 MG TABLET PO SCH (08:59)
[2019-03-12] MEDS: MULTIVITAMIN with MINERAL TABLET. PO SCH (09:00)
[2019-03-12] MEDS: ASPIRIN 81 MG TAB.CHEW PO SCH (09:00)
[2019-03-12] MEDS: ATENOLOL 25 MG TABLET PO SCH (09:00)
[2019-03-12] MEDS: DOCUSATE SODIUM 100 MG CAPSULE PO SCH (09:00)
[2019-03-12] MEDS: POTASSIUM CHLORIDE 20 MEQ TABLET.ER. PO SCH ×3 (09:00→20:53)
[2019-03-12] MEDS: GABAPENTIN 100 MG CAPSULE. PO SCH ×2 (09:01→17:29)
[2019-03-12] MEDS: CITALOPRAM 10 MG TABLET. PO SCH (09:01)
[2019-03-12] MEDS: FUROSEMIDE 40 MG/4 ML VIAL IVP SCH ×2 (09:01→13:34)
[2019-03-12] MEDS: FEBUXOSTAT 40 MG TABLET PO SCH (09:02)
[2019-03-12] MEDS: PYRIDOXINE 50 MG TABLET. PO SCH (09:02)
[2019-03-12 11:04] VITALS: BP 137/92
[2019-03-12 15:33] VITALS: BP 134/70
--- NOTE | 2019-03-12 18:21 | PDOC ---
PROGRESS NOTES Assessment 1. Acute on chronic diastolic heart failure: Recent 2-D echo in November 2018 showed normal LV systolic function with EF of 50-55%. Patient apparently had cardiac catheterization one year ago that did not show any significant coronary artery disease. Continue gentle diuresis with Lasix with close monitoring of BUN/creatinine. 2. Hypertension: Controlled 3. Hyperlipidemia: Continue statin therapy 4. Hypothyroidism: Continue levothyroxine 5. COPD: Treat per IM Subjective Feeling better today. Objective Vital Signs Date Time Temp Pulse Resp B/P (MAP) Pulse Ox O2 Delivery O2 Flow Rate FiO2 03/12/19 15:33 97.4 73 24 134/70 (91) 92 Nasal Cannula 3.0 Intake and Output 03/12/19 07:00 Intake Total 320 ml Output Total 2375 ml Balance -2055 ml Intake Oral 320 ml Output Urine Total 2375 ml Abdomen: Soft, No tenderness Heart: Regular rate Extremities: Other (1+ pitting edema) General: Alert, Oriented X3 HEENT: Atraumatic, PERRLA Lungs: Clear to auscultation Neck: Supple Neuro: Normal tone Psych/Mental Status: Mood NL Review of Relevant I have reviewed the following items federica (where applicable) has been applied. Labs Laboratory Tests Test 03/10/19 19:50 03/11/19 07:32 03/11/19 07:37 03/12/19 06:27 White Blood Count 7.3 x10^3/uL (4.0-11.0) 6.8 x10^3/uL (4.0-11.0) 6.2 x10^3/uL (4.0-11.0) Red Blood Count 4.11 x10^6/uL (3.50-5.40) 3.99 x10^6/uL (3.50-5.40) 3.95 x10^6/uL (3.50-5.40) Hemoglobin 12.8 g/dL (12.0-15.5) 12.5 g/dL (12.0-15.5) 12.2 g/dL (12.0-15.5) Hematocrit 37.7 % (36.0-47.0) 36.7 % (36.0-47.0) 36.3 % (36.0-47.0) Mean Corpuscular Volume 92 fL (79-100) 92 fL (79-100) 92 fL (79-100) Mean Corpuscular Hemoglobin 31 pg (25-35) 31 pg (25-35) 31 pg (25-35) Mean Corpuscular Hemoglobin Concent 34 g/dL (31-37) 34 g/dL (31-37) 34 g/dL (31-37) Red Cell Distribution Width 14.7 % (11.5-14.5) 14.8 % (11.5-14.5) 14.9 % (11.5-14.5) Platelet Count 214 x10^3/uL (140-400) 200 x10^3/uL (140-400) 198 x10^3/uL (140-400) Neutrophils (%) (Auto) 66 % (31-73) 64 % (31-73) Lymphocytes (%) (Auto) 21 % (24-48) 21 % (24-48) Monocytes (%) (Auto) 10 % (0-9) 11 % (0-9) Eosinophils (%) (Auto) 3 % (0-3) 3 % (0-3) Basophils (%) (Auto) 1 % (0-3) 1 % (0-3) Neutrophils # (Auto) 4.9 x10^3uL (1.8-7.7) 4.3 x10^3uL (1.8-7.7) Lymphocytes # (Auto) 1.5 x10^3/uL (1.0-4.8) 1.5 x10^3/uL (1.0-4.8) Monocytes # (Auto) 0.7 x10^3/uL (0.0-1.1) 0.8 x10^3/uL (0.0-1.1) Eosinophils # (Auto) 0.2 x10^3/uL (0.0-0.7) 0.2 x10^3/uL (0.0-0.7) Basophils # (Auto) 0.1 x10^3/uL (0.0-0.2) 0.1 x10^3/uL (0.0-0.2) Nasal Screen MRSA (PCR) Negative (Negative) Sodium Level 140 mmol/L (136-145) 139 mmol/L (136-145) 139 mmol/L (136-145) Potassium Level 3.2 mmol/L (3.5-5.1) 3.3 mmol/L (3.5-5.1) 3.1 mmol/L (3.5-5.1) Chloride Level 100 mmol/L (98-107) 99 mmol/L (98-107) 99 mmol/L (98-107) Carbon Dioxide Level 33 mmol/L (21-32) 33 mmol/L (21-32) 34 mmol/L (21-32) Anion Gap 7 (6-14) 7 (6-14) 6 (6-14) Blood Urea Nitrogen 29 mg/dL (7-20) 28 mg/dL (7-20) 35 mg/dL (7-20) Creatinine 1.6 mg/dL (0.6-1.0) 1.5 mg/dL (0.6-1.0) 1.7 mg/dL (0.6-1.0) Estimated GFR (Cockcroft-Gault) 31.0 33.4 28.9 BUN/Creatinine Ratio 18 (6-20) Glucose Level 144 mg/dL (70-99) 127 mg/dL (70-99) 145 mg/dL (70-99) Calcium Level 9.0 mg/dL (8.5-10.1) 8.9 mg/dL (8.5-10.1) 9.2 mg/dL (8.5-10.1) Total Bilirubin 0.4 mg/dL (0.2-1.0) Aspartate Amino Transf (AST/SGOT) 24 U/L (15-37) Alanine Aminotransferase (ALT/SGPT) 31 U/L (14-59) Alkaline Phosphatase 93 U/L (46-116) Troponin I Quantitative < 0.017 ng/mL (0-0.055) < 0.017 ng/mL (0-0.055) RI-Plh-W-Type Natriuretic Peptide 258 pg/mL (0-449) Total Protein 7.3 g/dL (6.4-8.2) Albumin 3.3 g/dL (3.4-5.0) Albumin/Globulin Ratio 0.8 (1.0-1.7) Magnesium Level 2.0 mg/dL (1.8-2.4) 1.8 mg/dL (1.8-2.4) Glucose (Fingerstick) 133 mg/dL (70-99) Thyroid Stimulating Hormone (TSH) 0.441 uIU/mL (0.358-3.740) Medications Current Medications Nitroglycerin (Nitro-Bid Oint) 0.5 inch Q6HRS TP Last administered on 03/11/19 06:00; Start 03/11/19 at 00:00; Stop 03/11/19 at 10:33; Status DC Furosemide (Lasix) 40 mg 1X ONCE IVP Last administered on 03/10/19 20:14; Start 03/10/19 at 19:30; Stop 03/10/19 at 19:31; Status DC Furosemide (Lasix) 40 mg BID92 IVP Last administered on 03/12/19 13:34; Start 03/11/19 at 09:00 Metolazone (Zaroxolyn) 2.5 mg DAILY PO Last administered on 03/12/19 08:59; Start 03/11/19 at 09:00 Atenolol (Tenormin) 25 mg DAILY PO Last administered on 03/12/19 09:00; Start 03/11/19 at 09:00 Atorvastatin Calcium (Lipitor) 20 mg QHS PO Last administered on 03/11/19 20:16; Start 03/10/19 at 21:00 Febuxostat (Uloric) 40 mg QODAY PO Last administered on 03/12/19 09:02; Start 03/12/19 at 09:00 Gabapentin (Neurontin) 100 mg BIDAFTMEAL PO Last administered on 03/12/19 17:29; Start 03/11/19 at 09:00 Gabapentin (Neurontin) 300 mg HS PO Last administered on 03/11/19 20:17; Start 03/10/19 at 21:00 Albuterol/ Ipratropium (Duoneb) 3 ml QID NEB Last administered on 03/12/19 15:15; Start 03/10/19 at 21:00 Levothyroxine Sodium (Synthroid) 75 mcg QM@0600 PO ; Start 03/13/19 at 06:00 Potassium Chloride (Klor-Con) 20 meq TID PO Last administered on 03/12/19 13:34; Start 03/10/19 at 21:00 Aspirin (Children'S Aspirin) 81 mg DAILYWBKFT PO Last administered on 03/12/19 09:00; Start 03/11/19 at 08:00 Non-Formulary Medication (Budesonide/ Formoterol Fumarate (Symbicort 160-4.5 Mcg Inhaler)) 2 puff BID IH ; Start 03/10/19 at 21:00; Stop 03/10/19 at 21:00; Status DC Pantoprazole Sodium (Protonix) 40 mg DAILYAC PO Last administered on 03/12/19 08:59; Start 03/11/19 at 07:30 Docusate Sodium (Colace) 200 mg DAILY PO Last administered on 03/12/19 09:00; Start 03/11/19 at 09:00 Citalopram Hydrobromide (CeleXA) 10 mg DAILY PO Last administered on 03/12/19 09:01; Start 03/11/19 at 09:00 Febuxostat (Uloric) 80 mg QODAY PO Last administered on 03/11/19at 08:56; Start 03/11/19 at 09:00 Levothyroxine Sodium (Synthroid) 150 mcg QTUTHSASU@0600 PO Last administered on 03/12/19 05:06; Start 03/11/19 at 06:00 Multivitamins/ Calcium (Thera-M Plus) 1 tab DAILY PO Last administered on 03/12/19 09:00; Start 03/11/19 at 09:00 Spironolactone (Aldactone) 25 mg DAILY PO Last administered on 03/12/19 08:59; Start 03/11/19 at 09:00 Non-Formulary Medication (Umeclidinium Scott (Incruse Ellipta)) 62.5 mcg DAILY IH ; Start 03/11/19 at 09:00; Stop 03/11/19 at 09:00; Status DC Pyridoxine HCl (Vitamin B-6) 100 mg DAILY PO Last administered on 03/12/19 09:02; Start 03/11/19 at 09:00 Levothyroxine Sodium (Synthroid) 150 mcg QWE@0600 PO ; Start 03/15/19 at 06:00 Levothyroxine Sodium (Synthroid) 150 mcg QFR@0600 PO ; Start 03/17/19 at 06:00 Budesonide (Pulmicort) 0.5 mg RTBID NEB Last administered on 03/11/19at 09:29; Start 03/11/19 at 08:00 Nitroglycerin (Nitro-Bid Oint) 1 inch STK-MED ONCE .ROUTE ; Start 03/10/19 at 21:13; Stop 03/11/19 at 10:33; Status DC Acetaminophen/ Hydrocodone Bitart (Lortab 5/325) 1 tab PRN Q6HRS PRN PO PAIN Last administered on 03/12/19at 17:41; Start 03/11/19 at 18:00 Potassium Chloride (Klor-Con) 40 meq 1X ONCE PO Last administered on 03/12/19at 08:59; Start 03/12/19 at 07:30; Stop 03/12/19 at 07:49; Status DC Potassium Chloride (Klor-Con) 40 meq 1X ONCE PO Last administered on 03/12/19at 17:28; Start 03/12/19 at 16:30; Stop 03/12/19 at 16:31; Status DC Active Scripts Active Reported Vitamin D (Cholecalciferol (Vitamin D3)) 2,000 Unit Tablet 2,000 Unit PO DAILY Atenolol (Atenolol) 25 Mg Tablet 25 Mg PO DAILY Magnesium (Magnesium Oxide) 400 Mg Capsule 100 Mg PO QHS Ferrous Sulfate 325 Mg Tablet 325 Mg PO DAILY Glimepiride 1 Mg Tablet 1 Mg PO DAILY Ropinirole Hcl 3 Mg Tablet 3 Mg PO QHS Uloric (Febuxostat) 40 Mg Tablet 1 Tab PO EVEN DAYS AM Uloric (Febuxostat) 80 Mg Tablet 1 Tab PO ODD DAYS ONLY AM Levothyroxine Sodium 75 Mcg Tablet 1 Tab PO MONDAYS Gabapentin (Gabapentin) 100 Mg Capsule 100 Mg PO BIDAFTMEAL Multivitamins (Multivitamin) 1 Each Tablet 1 Tab PO DAILY Klor-Con M20 (Potassium Chloride) 20 Meq Tab.er.prt 1 Tab PO TID Incruse Ellipta (Umeclidinium Scott) 62.5 Mcg Blst.w.dev 62.5 Mcg IH DAILY Escitalopram Oxalate 5 Mg Tablet 5 Mg PO DAILY Dok (Docusate Sodium) 100 Mg Capsule 200 Mg PO DAILY Dexilant (Dexlansoprazole) 60 Mg Cap.mp 60 Mg PO DAILY Atorvastatin Calcium 20 Mg Tablet 20 Mg PO QHS Atenolol (Atenolol) 25 Mg Tablet 25 Mg PO DAILY Aspirin 81 Mg Tab.chew 81 Mg PO DAILY Spironolactone 25 Mg Tablet 1 Tab PO DAILY Levothyroxine Sodium 150 Mcg Tablet 1 Tab PO T,W,TH,F,SA,SUN Gabapentin (Gabapentin) 300 Mg Capsule 300 Mg PO HS Symbicort 160-4.5 Mcg Inhaler (Budesonide/Formoterol Fumarate) 10.2 Gm Hfa.aer.ad 2 Puff IH BID [vitamin b6] 100 Mg PO DAILY Duoneb 0.5-3(2.5) Mg/3 Ml (Albuterol/Ipratropium) 3 Ml Ampul.neb 3 Ml NEB QID Vitals/I & O Vital Sign - Last 24 Hours 03/11/19 03/11/19 03/11/19 03/11/19 19:10 19:15 23:05 23:37 Temp 98.8 98.3 Pulse 84 85 Resp 18 18 20 B/P (MAP) 128/56 (80) 123/63 (83) Pulse Ox 94 92 92 O2 Delivery Nasal Cannula Nasal Cannula Nasal Cannula Nasal Cannula O2 Flow Rate 3.5 3.5 3.5 3.5 03/12/19 03/12/19 03/12/19 03/12/19 05:00 05:12 05:29 06:20 Temp 97.5 Pulse 87 Resp 20 20 20 B/P (MAP) 147/70 (95) Pulse Ox 94 92 92 92 O2 Delivery BiPAP/CPAP Nasal Cannula BiPAP/CPAP Nasal Cannula O2 Flow Rate 3.0 3.5 3.5 3.5 03/12/19 03/12/19 03/12/19 03/12/19 08:00 09:00 11:04 15:16 Temp 97.4 Pulse 87 76 Resp 24 B/P (MAP) 147/70 137/92 (107) Pulse Ox 95 O2 Delivery Nasal Cannula Nasal Cannula Nasal Cannula O2 Flow Rate 3.5 3.0 3.0 03/12/19 15:33 Temp 97.4 Pulse 73 Resp 24 B/P (MAP) 134/70 (91) Pulse Ox 92 O2 Delivery Nasal Cannula O2 Flow Rate 3.0 Intake and Output 0 03/11/19 03/11/19 03/12/19 15:00 23:00 07:00 Intake Total 120 ml 200 ml Output Total 1600 ml 775 ml Balance -1480 ml -575 ml ROMIE GOINS MD Mar 12, 2019 18:21
[2019-03-12 18:52] VITALS: BP 121/66
[2019-03-12] MEDS: GABAPENTIN 300 MG CAPSULE. PO SCH (20:52)
[2019-03-12] MEDS: ATORVASTATIN CALCIUM 20 MG TABLET PO SCH (20:53)
[2019-03-12 22:34] VITALS: BP 110/65
--- NOTE | 2019-03-13 01:38 | PN ---
DATE: 03/12/2019 SUBJECTIVE: The patient is resting, slightly propped up in bed, in no apparent distress. On questioning her, she stated that she is generally feeling much better. Her legs are much less swollen. Her shortness of breath is improved. OBJECTIVE: GENERAL: When I examined her, she looked well and was clearly in no apparent respiratory distress, slightly pale, no jaundice, cyanosis, or thyromegaly. No jugular venous distention. No limb edema. VITAL SIGNS: Her heart rate was 73, blood pressure was 134/70, temperature was 97.4, respiratory rate was 24, and oxygen saturation was 96% on 3 liters of oxygen. HEAD, EYES, EARS, NOSE AND THROAT: Showed normocephalic, atraumatic. NECK: Supple. HEART: Showed normal first and second heart sounds with no gallop, rub or murmur. CHEST: Clear to auscultation. No crepitation or rhonchi. ABDOMEN: Distended, soft, nontender. NEUROLOGIC: She is awake, alert, responding appropriately. Cranial nerves intact. She moves extremities without difficulty. She ambulates with a walker. Her intake over the last 24 hours was 320, output was 2375. LABORATORY DATA: Her lab work showed a white cell count 6200, hemoglobin 12.2, hematocrit 36, MCV 92, and platelet count of 198,000. Her serum sodium was 139, potassium 3.1, chloride 99, bicarbonate 34, anion gap of 6, BUN 35, creatinine was 1.7. Her calcium was 9.2, magnesium was 1.8. Her TSH was 0.441. Her nasal screen for MRSA by PCR was negative. ASSESSMENT: 1. Acute on chronic diastolic congestive heart failure, ejection fraction of 50-55%. The patient is responding very well to IV Lasix. 2. Hypertension, well controlled. 3. Hyperlipidemia, on statin. 4. Hypothyroidism, on levothyroxine. Her TSH is well within normal range. 5. Chronic obstructive pulmonary disease for which she is on bronchodilator. 6. Type 2 diabetes mellitus, reasonably controlled. She has acute on chronic kidney injury. Creatinine is creeping up. 7. Hypokalemia with potassium 3.1. PLAN: My plan is to continue with this plan of management. Replenish her potassium and we will evaluate her again tomorrow and decide the further management accordingly. ANDRÉS HERNANDEZ MD DR: Tiffani JOB#: [id number] / [id number]
[2019-03-13] MEDS: IPRATRPIUM/ALBUTEROL 0.5/2.5MG 3 ML NEBU. NEB SCH ×4 (04:19→19:25)
[2019-03-13 05:15] VITALS: BP 123/70
[2019-03-13] MEDS ORDERED: LEVOTHYROXINE 75 MCG TABLET PO SCH (06:00)
[2019-03-13 06:30] LABS: CALCIUM 9.1 mg/dL (8.5-10.1); CREATININE 1.6 mg/dL (0.6-1.0); POTASSIUM 3.3 mmol/L (3.5-5.1)
[2019-03-13] MEDS: PANTOPRAZOLE 40 MG TABLET. PO SCH (07:47)
[2019-03-13] MEDS: HYDROcodone/APAP 5/325MG 1 TAB TABLET PO PRN ×3 (07:48→21:24)
[2019-03-13] MEDS: metOLazone 2.5 MG TABLET PO SCH (08:38)
[2019-03-13] MEDS: POTASSIUM CHLORIDE 20 MEQ TABLET.ER. PO SCH ×3 (08:39→21:24)
[2019-03-13] MEDS: ATENOLOL 25 MG TABLET PO SCH (08:39)
[2019-03-13] MEDS: GABAPENTIN 100 MG CAPSULE. PO SCH ×2 (08:39→17:34)
[2019-03-13] MEDS: DOCUSATE SODIUM 100 MG CAPSULE PO SCH (08:40)
[2019-03-13] MEDS: MULTIVITAMIN with MINERAL TABLET. PO SCH (08:40)
[2019-03-13] MEDS: SPIRONOLACTONE 25 MG TABLET PO SCH (08:40)
[2019-03-13] MEDS: CITALOPRAM 10 MG TABLET. PO SCH (08:41)
[2019-03-13] MEDS: PYRIDOXINE 50 MG TABLET. PO SCH (08:42)
[2019-03-13] MEDS: ASPIRIN 81 MG TAB.CHEW PO SCH (08:44)
[2019-03-13 10:40] VITALS: BP 117/61
[2019-03-13] MEDS: BUDESONIDE 0.5 MG/2 ML NEBU NEB SCH ×2 (11:34→19:24)
[2019-03-13] MEDS ORDERED: POTASSIUM CHLORIDE 20 MEQ TABLET.ER. PO ONE (12:30)
[2019-03-13] MEDS: FEBUXOSTAT 40 MG TABLET PO SCH (12:34)
[2019-03-13] MEDS: FUROSEMIDE 40 MG/4 ML VIAL IVP SCH ×2 (12:36→17:34)
[2019-03-13 15:12] VITALS: BP 110/67
--- NOTE | 2019-03-13 16:22 | PDOC ---
PROGRESS NOTES Assessment 1. Acute on chronic diastolic heart failure: Recent 2-D echo in November 2018 showed normal LV systolic function with EF of 50-55%. Patient apparently had cardiac catheterization one year ago that did not show any significant coronary artery disease. Symptoms improved with diuresis 2. Hypertension: Controlled 3. Hyperlipidemia: Continue statin therapy 4. Hypothyroidism: Continue levothyroxine 5. COPD: Treat per IM Subjective Feeling better Objective Vital Signs Date Time Temp Pulse Resp B/P (MAP) Pulse Ox O2 Delivery O2 Flow Rate FiO2 03/13/19 15:57 94 Nasal Cannula 3.0 03/13/19 15:12 98.2 82 24 110/67 (81) Intake and Output 03/13/19 06:59 Intake Total 1500 ml Output Total 2125 ml Balance -625 ml Intake Oral 1500 ml Output Urine Total 2125 ml # Voids 2 Abdomen: Soft, No tenderness Heart: Regular rate Extremities: Other (1+ pitting) General: Alert, Oriented X3 HEENT: Atraumatic Lungs: Clear to auscultation Neck: Supple Neuro: Normal speech Psych/Mental Status: Mood NL Review of Relevant I have reviewed the following items federica (where applicable) has been applied. Labs Laboratory Tests Test 03/12/19 06:27 03/12/19 21:06 03/13/19 05:48 White Blood Count 6.2 x10^3/uL (4.0-11.0) Red Blood Count 3.95 x10^6/uL (3.50-5.40) Hemoglobin 12.2 g/dL (12.0-15.5) Hematocrit 36.3 % (36.0-47.0) Mean Corpuscular Volume 92 fL (79-100) Mean Corpuscular Hemoglobin 31 pg (25-35) Mean Corpuscular Hemoglobin Concent 34 g/dL (31-37) Red Cell Distribution Width 14.9 % (11.5-14.5) Platelet Count 198 x10^3/uL (140-400) Sodium Level 139 mmol/L (136-145) 140 mmol/L (136-145) Potassium Level 3.1 mmol/L (3.5-5.1) 3.3 mmol/L (3.5-5.1) Chloride Level 99 mmol/L (98-107) 100 mmol/L (98-107) Carbon Dioxide Level 34 mmol/L (21-32) 32 mmol/L (21-32) Anion Gap 6 (6-14) 8 (6-14) Blood Urea Nitrogen 35 mg/dL (7-20) 38 mg/dL (7-20) Creatinine 1.7 mg/dL (0.6-1.0) 1.6 mg/dL (0.6-1.0) Estimated GFR (Cockcroft-Gault) 28.9 31.0 Glucose Level 145 mg/dL (70-99) 136 mg/dL (70-99) Calcium Level 9.2 mg/dL (8.5-10.1) 9.1 mg/dL (8.5-10.1) Magnesium Level 1.8 mg/dL (1.8-2.4) Thyroid Stimulating Hormone (TSH) 0.441 uIU/mL (0.358-3.740) Glucose (Fingerstick) 186 mg/dL (70-99) Medications Current Medications Nitroglycerin (Nitro-Bid Oint) 0.5 inch Q6HRS TP Last administered on 03/11/19 06:00; Start 03/11/19 at 00:00; Stop 03/11/19 at 10:33; Status DC Furosemide (Lasix) 40 mg 1X ONCE IVP Last administered on 03/10/19 20:14; Start 03/10/19 at 19:30; Stop 03/10/19 at 19:31; Status DC Furosemide (Lasix) 40 mg BID92 IVP Last administered on 03/13/19at 12:36; Start 03/11/19 at 09:00 Metolazone (Zaroxolyn) 2.5 mg DAILY PO Last administered on 03/13/19 08:38; Start 03/11/19 at 09:00; Stop 03/13/19 at 12:07; Status DC Atenolol (Tenormin) 25 mg DAILY PO Last administered on 03/13/19 08:39; Start 03/11/19 at 09:00 Atorvastatin Calcium (Lipitor) 20 mg QHS PO Last administered on 03/12/19 20:53; Start 03/10/19 at 21:00 Febuxostat (Uloric) 40 mg QODAY PO Last administered on 03/12/19at 09:02; Start 03/12/19 at 09:00 Gabapentin (Neurontin) 100 mg BIDAFTMEAL PO Last administered on 03/13/19 08:39; Start 03/11/19 at 09:00 Gabapentin (Neurontin) 300 mg HS PO Last administered on 03/12/19 20:52; Start 03/10/19 at 21:00 Albuterol/ Ipratropium (Duoneb) 3 ml QID NEB Last administered on 03/13/19 15:57; Start 03/10/19 at 21:00 Levothyroxine Sodium (Synthroid) 75 mcg QM@0600 PO Last administered on 03/13/19 05:12; Start 03/13/19 at 06:00 Potassium Chloride (Klor-Con) 20 meq TID PO Last administered on 03/13/19 12:35; Start 03/10/19 at 21:00 Aspirin (Children'S Aspirin) 81 mg DAILYWBKFT PO Last administered on 03/13/19 08:44; Start 03/11/19 at 08:00 Non-Formulary Medication (Budesonide/ Formoterol Fumarate (Symbicort 160-4.5 Mcg Inhaler)) 2 puff BID IH ; Start 03/10/19 at 21:00; Stop 03/10/19 at 21:00; Status DC Pantoprazole Sodium (Protonix) 40 mg DAILYAC PO Last administered on 03/13/19 07:47; Start 03/11/19 at 07:30 Docusate Sodium (Colace) 200 mg DAILY PO Last administered on 03/13/19 08:40; Start 03/11/19 at 09:00 Citalopram Hydrobromide (CeleXA) 10 mg DAILY PO Last administered on 03/13/19 08:41; Start 03/11/19 at 09:00 Febuxostat (Uloric) 80 mg QODAY PO Last administered on 03/13/19 12:34; Start 03/11/19 at 09:00 Levothyroxine Sodium (Synthroid) 150 mcg QTUTHSASU@0600 PO Last administered on 03/12/19 05:06; Start 03/11/19 at 06:00 Multivitamins/ Calcium (Thera-M Plus) 1 tab DAILY PO Last administered on 4/29/19at 08:40; Start 03/11/19 at 09:00 Spironolactone (Aldactone) 25 mg DAILY PO Last administered on 03/13/19at 08:40; Start 03/11/19 at 09:00 Non-Formulary Medication (Umeclidinium Damar (Incruse Ellipta)) 62.5 mcg DAILY IH ; Start 03/11/19 at 09:00; Stop 03/11/19 at 09:00; Status DC Pyridoxine HCl (Vitamin B-6) 100 mg DAILY PO Last administered on 03/13/19at 08:42; Start 03/11/19 at 09:00 Levothyroxine Sodium (Synthroid) 150 mcg QWE@0600 PO ; Start 03/15/19 at 06:00 Levothyroxine Sodium (Synthroid) 150 mcg QFR@0600 PO ; Start 03/17/19 at 06:00 Budesonide (Pulmicort) 0.5 mg RTBID NEB Last administered on 03/13/19at 11:34; Start 03/11/19 at 08:00 Nitroglycerin (Nitro-Bid Oint) 1 inch STK-MED ONCE .ROUTE ; Start 03/10/19 at 21:13; Stop 03/11/19 at 10:33; Status DC Acetaminophen/ Hydrocodone Bitart (Lortab 5/325) 1 tab PRN Q6HRS PRN PO PAIN Last administered on 03/13/19at 14:29; Start 03/11/19 at 18:00 Potassium Chloride (Klor-Con) 40 meq 1X ONCE PO Last administered on 03/12/19at 08:59; Start 03/12/19 at 07:30; Stop 03/12/19 at 07:49; Status DC Potassium Chloride (Klor-Con) 40 meq 1X ONCE PO Last administered on 03/12/19at 17:28; Start 03/12/19 at 16:30; Stop 03/12/19 at 16:31; Status DC Potassium Chloride (Klor-Con) 20 meq 1X ONCE PO Last administered on 03/13/19at 12:35; Start 03/13/19 at 12:30; Stop 03/13/19 at 12:31; Status DC Metolazone (Zaroxolyn) 5 mg DAILY PO ; Start 03/14/19 at 09:00 Active Scripts Active Reported Vitamin D (Cholecalciferol (Vitamin D3)) 2,000 Unit Tablet 2,000 Unit PO DAILY Atenolol (Atenolol) 25 Mg Tablet 25 Mg PO DAILY Magnesium (Magnesium Oxide) 400 Mg Capsule 100 Mg PO QHS Ferrous Sulfate 325 Mg Tablet 325 Mg PO DAILY Glimepiride 1 Mg Tablet 1 Mg PO DAILY Ropinirole Hcl 3 Mg Tablet 3 Mg PO QHS Uloric (Febuxostat) 40 Mg Tablet 1 Tab PO EVEN DAYS AM Uloric (Febuxostat) 80 Mg Tablet 1 Tab PO ODD DAYS ONLY AM Levothyroxine Sodium 75 Mcg Tablet 1 Tab PO MONDAYS Gabapentin (Gabapentin) 100 Mg Capsule 100 Mg PO BIDAFTMEAL Multivitamins (Multivitamin) 1 Each Tablet 1 Tab PO DAILY Klor-Con M20 (Potassium Chloride) 20 Meq Tab.er.prt 1 Tab PO TID Incruse Ellipta (Umeclidinium Damar) 62.5 Mcg Blst.w.dev 62.5 Mcg IH DAILY Escitalopram Oxalate 5 Mg Tablet 5 Mg PO DAILY Dok (Docusate Sodium) 100 Mg Capsule 200 Mg PO DAILY Dexilant (Dexlansoprazole) 60 Mg Cap.mp 60 Mg PO DAILY Atorvastatin Calcium 20 Mg Tablet 20 Mg PO QHS Atenolol (Atenolol) 25 Mg Tablet 25 Mg PO DAILY Aspirin 81 Mg Tab.chew 81 Mg PO DAILY Spironolactone 25 Mg Tablet 1 Tab PO DAILY Levothyroxine Sodium 150 Mcg Tablet 1 Tab PO T,W,TH,F,SA,SUN Gabapentin (Gabapentin) 300 Mg Capsule 300 Mg PO HS Symbicort 160-4.5 Mcg Inhaler (Budesonide/Formoterol Fumarate) 10.2 Gm Hfa.aer.ad 2 Puff IH BID [vitamin b6] 100 Mg PO DAILY Duoneb 0.5-3(2.5) Mg/3 Ml (Albuterol/Ipratropium) 3 Ml Ampul.neb 3 Ml NEB QID Vitals/I & O Vital Sign - Last 24 Hours 03/12/19 03/12/19 03/12/19 03/12/19 18:52 19:23 20:28 20:34 Temp 98.0 Pulse 85 Resp 24 B/P (MAP) 121/66 (84) Pulse Ox 94 95 O2 Delivery Nasal Cannula Nasal Cannula Nasal Cannula Nasal Cannula O2 Flow Rate 3.0 3.0 3.0 3.0 03/12/19 03/12/19 03/13/19 03/13/19 22:34 23:45 00:47 04:21 Temp 97.7 Pulse 90 Resp 20 18 18 B/P (MAP) 110/65 (80) Pulse Ox 93 96 O2 Delivery Nasal Cannula Nasal Cannula Nasal Cannula Nasal Cannula O2 Flow Rate 3.0 3.0 3.0 3.0 03/13/19 03/13/19 03/13/19 03/13/19 04:22 05:15 08:00 08:39 Temp 97.5 Pulse 84 84 Resp 20 B/P (MAP) 123/70 (87) 123/70 Pulse Ox 96 93 O2 Delivery Nasal Cannula Nasal Cannula Nasal Cannula O2 Flow Rate 3.0 3.0 3.0 03/13/19 03/13/19 03/13/19 03/13/19 10:40 11:34 15:12 15:57 Temp 97.4 98.2 Pulse 80 82 Resp 24 24 B/P (MAP) 117/61 (79) 110/67 (81) Pulse Ox 95 96 95 94 O2 Delivery Nasal Cannula Nasal Cannula Nasal Cannula Nasal Cannula O2 Flow Rate 3.0 3.0 3.0 3.0 Intake and Output 03/12/19 03/12/19 03/13/19 14:59 22:59 06:59 Intake Total 480 ml 720 ml 300 ml Output Total 900 ml 1025 ml 200 ml Balance -420 ml -305 ml 100 ml ROMIE GOINS MD Mar 13, 2019 16:22
[2019-03-13 18:41] VITALS: BP 101/60
[2019-03-13] MEDS: ATORVASTATIN CALCIUM 20 MG TABLET PO SCH (21:24)
[2019-03-13] MEDS: GABAPENTIN 300 MG CAPSULE. PO SCH (21:24)
--- NOTE | 2019-03-13 21:29 | PN ---
DATE: 03/13/2019 SUBJECTIVE: The patient is sitting on the edge of the bed, eating her lunch comfortably, in no apparent distress. Unfortunately, she gained actually 1 pound. She was supposed to get Lasix this morning, but I was not called with her lab results. In any case, I will restart her on her IV Lasix this afternoon. I will increase her Zaroxolyn tomorrow and added an extra dose of potassium. OBJECTIVE: GENERAL: When I examined her, she looked well and was in no apparent respiratory distress, slightly pale, but no jaundice, cyanosis or thyromegaly. No jugular venous distension. No lower limb edema. VITAL SIGNS: Her heart rate was 80, blood pressure 117/61, temperature was 97.4, respiratory rate 24 and oxygen saturation was 95% on 3 liters of oxygen. HEAD, EYES, EARS, NOSE AND THROAT: Showed normocephalic, atraumatic. NECK: Supple. HEART: Showed normal first and second heart sounds. No gallop, rub or murmur. CHEST: Clear to auscultation. No crepitation or rhonchi. ABDOMEN: Distended, soft, nontender. No guarding or rigidity. No organomegaly. All hernial orifice intact. Bowel sounds normal. NEUROLOGIC: She is awake, alert, responding appropriately. All cranial nerves intact. She moves extremities without difficulty. She ambulates with a walker. Her intake over the last 24 hours was 1500, was 3020, output was 2375. LABORATORY DATA: This morning showed a serum sodium 140, potassium 3.3, chloride 100, bicarbonate 32, anion gap of 8, BUN 38, creatinine 1.6. Estimated GFR was 31 mL per minute. Her glucose was 136 and calcium was 9.1. ASSESSMENT: 1. Acute on chronic diastolic congestive heart failure with an ejection fraction of 50-55%. We will continue with IV Lasix. I will increase metolazone to 5 mg. 2. Hypertension, well-controlled. 3. Hyperlipidemia, on statin. 4. Hypothyroidism. She is both clinically and biochemically euthyroid. 5. Chronic obstructive pulmonary disease for which she is on bronchodilator. 6. Type 2 diabetes mellitus, reasonably controlled. 7. Acute on chronic kidney injury. Creatinine is back to baseline. 8. Hypokalemia with potassium slightly better at 3.3. PLAN: My plan is to continue with IV Lasix. I will give her an extra dose of potassium today and tomorrow. I will increase Zaroxolyn to 5 mg and continue with Lasix 40 mg twice a day and spironolactone as well as potassium supplement. ANDRÉS HERNANDEZ MD DR: JENNIFER/shari JOB#: [id number] / [id number]
[2019-03-14] MEDS: IPRATRPIUM/ALBUTEROL 0.5/2.5MG 3 ML NEBU. NEB SCH ×4 (04:33→20:10)
[2019-03-14 05:17] VITALS: BP 146/75
[2019-03-14] MEDS: HYDROcodone/APAP 5/325MG 1 TAB TABLET PO PRN ×3 (06:12→20:52)
[2019-03-14] MEDS: LEVOTHYROXINE 150 MCG TABLET PO SCH (06:12)
[2019-03-14 06:25] LABS: CALCIUM 9.5 mg/dL (8.5-10.1); CREATININE 1.7 mg/dL (0.6-1.0); GFR 28.9; MAGNESIUM 1.9 mg/dL (1.8-2.4); POTASSIUM 3.4 mmol/L (3.5-5.1)
[2019-03-14] MEDS: PANTOPRAZOLE 40 MG TABLET. PO SCH (07:31)
[2019-03-14] MEDS ORDERED: POTASSIUM CHLORIDE 20 MEQ TABLET.ER. PO ONE (07:45)
[2019-03-14] MEDS: FUROSEMIDE 40 MG/4 ML VIAL IVP SCH ×2 (08:27→14:27)
[2019-03-14] MEDS: DOCUSATE SODIUM 100 MG CAPSULE PO SCH (08:29)
[2019-03-14] MEDS: MULTIVITAMIN with MINERAL TABLET. PO SCH (08:29)
[2019-03-14] MEDS: metOLazone 2.5 MG TABLET PO SCH ×2 (08:29→13:33)
[2019-03-14] MEDS: SPIRONOLACTONE 25 MG TABLET PO SCH (08:29)
[2019-03-14] MEDS: GABAPENTIN 100 MG CAPSULE. PO SCH ×2 (08:30→17:41)
[2019-03-14] MEDS: ATENOLOL 25 MG TABLET PO SCH (08:30)
[2019-03-14] MEDS: ASPIRIN 81 MG TAB.CHEW PO SCH (08:30)
[2019-03-14] MEDS: CITALOPRAM 10 MG TABLET. PO SCH (08:30)
[2019-03-14] MEDS: PYRIDOXINE 50 MG TABLET. PO SCH (08:31)
[2019-03-14] MEDS: FEBUXOSTAT 40 MG TABLET PO SCH (08:32)
[2019-03-14] MEDS: POTASSIUM CHLORIDE 20 MEQ TABLET.ER. PO SCH ×3 (08:36→20:53)
[2019-03-14] MEDS: BUDESONIDE 0.5 MG/2 ML NEBU NEB SCH ×2 (09:24→20:10)
[2019-03-14 11:09] VITALS: BP 116/55
--- NOTE | 2019-03-14 12:17 | PDOC ---
PROGRESS NOTES Assessment 1. Acute on chronic diastolic heart failure: Recent 2-D echo in November 2018 showed normal LV systolic function with EF of 50-55%. Patient apparently had cardiac catheterization one year ago that did not show any significant coronary artery disease. Patient continues to have edema, right greater than the left. Agree with lower extremity venous duplex study to rule out DVT. Increase metolazone dose to 5 mg daily and continue Lasix. If she does not diurese well, we will change Lasix to Bumex. 2. Hypertension: Controlled 3. Hyperlipidemia: Continue statin therapy 4. Hypothyroidism: Continue levothyroxine 5. COPD: Treat per IM Subjective Patient continues to complain of lower extremity edema Objective Vital Signs Date Time Temp Pulse Resp B/P (MAP) Pulse Ox O2 Delivery O2 Flow Rate FiO2 03/14/19 11:09 97.7 78 20 116/55 (75) 93 Nasal Cannula 3.0 Intake and Output 03/14/19 07:00 Intake Total 1080 ml Output Total 2225 ml Balance -1145 ml Intake Oral 1080 ml Output Urine Total 2225 ml # Voids 4 Abdomen: Soft, No tenderness Heart: Regular rate Extremities: Other (1-2+ pitting edema, right greater than the left) General: Alert, Oriented X3 HEENT: Atraumatic, PERRLA Lungs: Clear to auscultation Neck: Supple Neuro: Normal speech Psych/Mental Status: Mental status NL Review of Relevant I have reviewed the following items federica (where applicable) has been applied. Labs Laboratory Tests Test 03/12/19 21:06 03/13/19 05:48 03/14/19 05:39 Glucose (Fingerstick) 186 mg/dL (70-99) Sodium Level 140 mmol/L (136-145) 139 mmol/L (136-145) Potassium Level 3.3 mmol/L (3.5-5.1) 3.4 mmol/L (3.5-5.1) Chloride Level 100 mmol/L (98-107) 99 mmol/L (98-107) Carbon Dioxide Level 32 mmol/L (21-32) 33 mmol/L (21-32) Anion Gap 8 (6-14) 7 (6-14) Blood Urea Nitrogen 38 mg/dL (7-20) 42 mg/dL (7-20) Creatinine 1.6 mg/dL (0.6-1.0) 1.7 mg/dL (0.6-1.0) Estimated GFR (Cockcroft-Gault) 31.0 28.9 Glucose Level 136 mg/dL (70-99) 159 mg/dL (70-99) Calcium Level 9.1 mg/dL (8.5-10.1) 9.5 mg/dL (8.5-10.1) Magnesium Level 1.9 mg/dL (1.8-2.4) Medications Current Medications Nitroglycerin (Nitro-Bid Oint) 0.5 inch Q6HRS TP Last administered on 03/11/19 06:00; Start 03/11/19 at 00:00; Stop 03/11/19 at 10:33; Status DC Furosemide (Lasix) 40 mg 1X ONCE IVP Last administered on 03/10/19 20:14; Start 03/10/19 at 19:30; Stop 03/10/19 at 19:31; Status DC Furosemide (Lasix) 40 mg BID92 IVP Last administered on 03/14/19 08:27; Start 03/11/19 at 09:00 Metolazone (Zaroxolyn) 2.5 mg DAILY PO Last administered on 03/13/19 08:38; Start 03/11/19 at 09:00; Stop 03/13/19 at 12:07; Status DC Atenolol (Tenormin) 25 mg DAILY PO Last administered on 03/14/19 08:30; Start 03/11/19 at 09:00 Atorvastatin Calcium (Lipitor) 20 mg QHS PO Last administered on 03/13/19 21:24; Start 03/10/19 at 21:00 Febuxostat (Uloric) 40 mg QODAY PO Last administered on 03/14/19 08:32; Start 03/12/19 at 09:00 Gabapentin (Neurontin) 100 mg BIDAFTMEAL PO Last administered on 03/14/19 08:30; Start 03/11/19 at 09:00 Gabapentin (Neurontin) 300 mg HS PO Last administered on 03/13/19 21:24; Start 03/10/19 at 21:00 Albuterol/ Ipratropium (Duoneb) 3 ml QID NEB Last administered on 03/14/19 09:24; Start 03/10/19 at 21:00 Levothyroxine Sodium (Synthroid) 75 mcg QM@0600 PO Last administered on 03/13/19 05:12; Start 03/13/19 at 06:00 Potassium Chloride (Klor-Con) 20 meq TID PO Last administered on 03/14/19 08:36; Start 03/10/19 at 21:00 Aspirin (Children'S Aspirin) 81 mg DAILYWBKFT PO Last administered on 03/14/19 08:30; Start 03/11/19 at 08:00 Non-Formulary Medication (Budesonide/ Formoterol Fumarate (Symbicort 160-4.5 Mcg Inhaler)) 2 puff BID IH ; Start 03/10/19 at 21:00; Stop 03/10/19 at 21:00; Status DC Pantoprazole Sodium (Protonix) 40 mg DAILYAC PO Last administered on 03/14/19 07:31; Start 03/11/19 at 07:30 Docusate Sodium (Colace) 200 mg DAILY PO Last administered on 03/14/19 08:29; Start 03/11/19 at 09:00 Citalopram Hydrobromide (CeleXA) 10 mg DAILY PO Last administered on 03/14/19 08:30; Start 03/11/19 at 09:00 Febuxostat (Uloric) 80 mg QODAY PO Last administered on 03/13/19 12:34; Start 03/11/19 at 09:00 Levothyroxine Sodium (Synthroid) 150 mcg QTUTHSASU@0600 PO Last administered on 03/14/19 06:12; Start 03/11/19 at 06:00 Multivitamins/ Calcium (Thera-M Plus) 1 tab DAILY PO Last administered on 03/14/19 08:29; Start 03/11/19 at 09:00 Spironolactone (Aldactone) 25 mg DAILY PO Last administered on 03/14/19 08:29; Start 03/11/19 at 09:00 Non-Formulary Medication (Umeclidinium [place] (Incruse Ellipta)) 62.5 mcg DAILY IH ; Start 03/11/19 at 09:00; Stop 03/11/19 at 09:00; Status DC Pyridoxine HCl (Vitamin B-6) 100 mg DAILY PO Last administered on 03/14/19at 08:31; Start 03/11/19 at 09:00 Levothyroxine Sodium (Synthroid) 150 mcg QWE@0600 PO ; Start 03/15/19 at 06:00 Levothyroxine Sodium (Synthroid) 150 mcg QFR@0600 PO ; Start 03/17/19 at 06:00 Budesonide (Pulmicort) 0.5 mg RTBID NEB Last administered on 03/14/19at 09:24; Start 03/11/19 at 08:00 Nitroglycerin (Nitro-Bid Oint) 1 inch STK-MED ONCE .ROUTE ; Start 03/10/19 at 21:13; Stop 03/11/19 at 10:33; Status DC Acetaminophen/ Hydrocodone Bitart (Lortab 5/325) 1 tab PRN Q6HRS PRN PO PAIN Last administered on 03/14/19at 06:12; Start 03/11/19 at 18:00 Potassium Chloride (Klor-Con) 40 meq 1X ONCE PO Last administered on 03/12/19at 08:59; Start 03/12/19 at 07:30; Stop 03/12/19 at 07:49; Status DC Potassium Chloride (Klor-Con) 40 meq 1X ONCE PO Last administered on 03/12/19at 17:28; Start 03/12/19 at 16:30; Stop 03/12/19 at 16:31; Status DC Potassium Chloride (Klor-Con) 20 meq 1X ONCE PO Last administered on 03/13/19at 12:35; Start 03/13/19 at 12:30; Stop 03/13/19 at 12:31; Status DC Metolazone (Zaroxolyn) 5 mg DAILY PO Last administered on 03/14/19at 08:29; Start 03/14/19 at 09:00 Potassium Chloride (Klor-Con) 40 meq 1X ONCE PO Last administered on 03/14/19at 08:28; Start 03/14/19 at 07:45; Stop 03/14/19 at 07:51; Status DC Heparin Sodium (Porcine) (Heparin Sodium) 5,000 unit Q8HRS SQ ; Start 03/14/19 at 14:00 Active Scripts Active Reported Vitamin D (Cholecalciferol (Vitamin D3)) 2,000 Unit Tablet 2,000 Unit PO DAILY Atenolol (Atenolol) 25 Mg Tablet 25 Mg PO DAILY Magnesium (Magnesium Oxide) 400 Mg Capsule 100 Mg PO QHS Ferrous Sulfate 325 Mg Tablet 325 Mg PO DAILY Glimepiride 1 Mg Tablet 1 Mg PO DAILY Ropinirole Hcl 3 Mg Tablet 3 Mg PO QHS Uloric (Febuxostat) 40 Mg Tablet 1 Tab PO EVEN DAYS AM Uloric (Febuxostat) 80 Mg Tablet 1 Tab PO ODD DAYS ONLY AM Levothyroxine Sodium 75 Mcg Tablet 1 Tab PO MONDAYS Gabapentin (Gabapentin) 100 Mg Capsule 100 Mg PO BIDAFTMEAL Multivitamins (Multivitamin) 1 Each Tablet 1 Tab PO DAILY Klor-Con M20 (Potassium Chloride) 20 Meq Tab.er.prt 1 Tab PO TID Incruse Ellipta (Umeclidinium [place]) 62.5 Mcg Blst.w.dev 62.5 Mcg IH DAILY Escitalopram Oxalate 5 Mg Tablet 5 Mg PO DAILY Dok (Docusate Sodium) 100 Mg Capsule 200 Mg PO DAILY Dexilant (Dexlansoprazole) 60 Mg Monster.mp 60 Mg PO DAILY Atorvastatin Calcium 20 Mg Tablet 20 Mg PO QHS Atenolol (Atenolol) 25 Mg Tablet 25 Mg PO DAILY Aspirin 81 Mg Tab.chew 81 Mg PO DAILY Spironolactone 25 Mg Tablet 1 Tab PO DAILY Levothyroxine Sodium 150 Mcg Tablet 1 Tab PO T,W,TH,F,SA,SUN Gabapentin (Gabapentin) 300 Mg Capsule 300 Mg PO HS Symbicort 160-4.5 Mcg Inhaler (Budesonide/Formoterol Fumarate) 10.2 Gm Hfa.aer.ad 2 Puff IH BID [vitamin b6] 100 Mg PO DAILY Duoneb 0.5-3(2.5) Mg/3 Ml (Albuterol/Ipratropium) 3 Ml Ampul.neb 3 Ml NEB QID Vitals/I & O Vital Sign - Last 24 Hours 03/13/19 03/13/19 03/13/19 03/13/19 15:12 15:57 18:41 19:26 Temp 98.2 97.6 Pulse 82 91 Resp 24 24 B/P (MAP) 110/67 (81) 101/60 (74) Pulse Ox 95 94 93 97 O2 Delivery Nasal Cannula Nasal Cannula Nasal Cannula Nasal Cannula O2 Flow Rate 3.0 3.0 3.0 3.0 03/13/19 03/13/19 03/13/19 03/13/19 19:27 19:33 21:24 22:24 Resp 18 18 Pulse Ox 97 O2 Delivery Nasal Cannula Nasal Cannula Nasal Cannula Nasal Cannula O2 Flow Rate 3.0 3.0 3.0 3.0 03/13/19 03/14/19 03/14/19 03/14/19 23:21 04:34 05:17 06:12 Temp 97.4 Pulse 104 Resp 18 20 22 B/P (MAP) 146/75 (98) Pulse Ox 92 91 O2 Delivery Nasal Cannula home unit Room Air Nasal Cannula O2 Flow Rate 3.0 3.0 3.0 03/14/19 03/14/19 03/14/19 03/14/19 08:00 08:30 09:26 11:09 Temp 97.7 Pulse 104 78 Resp 20 B/P (MAP) 146/75 116/55 (75) Pulse Ox 92 93 O2 Delivery Nasal Cannula Nasal Cannula Nasal Cannula O2 Flow Rate 3.0 3.0 3.0 Intake and Output 03/13/19 03/13/19 03/14/19 15:00 23:00 07:00 Intake Total 240 ml 840 ml Output Total 150 ml 1600 ml 475 ml Balance 90 ml -760 ml -475 ml ROMIE GOINS MD Mar 14, 2019 12:17
[2019-03-14] MEDS: HEPARIN for SUB-Q USE 5,000 UNIT/ML VIAL. SQ SCH ×2 (14:28→22:22)
[2019-03-14 14:54] VITALS: BP 120/71
--- NOTE | 2019-03-14 15:01 | RAD ---
Chest, PA and Lateral: Technique: PA and lateral views of the chest were obtained. History: Shortness of breath. Comparison: 02/08/2019. Findings: The heart and pulmonary vasculature appear within normal limits. Patchy bibasilar lung airspace opacities and mild prominent appearing bilateral interstitial lung markings similar to prior exam.. The pleural margins are clear. Impression: Unchanged exam.. Electronically signed by: Myles Black MD (03/14/2019 2:58 PM) [facility] [place]
[2019-03-14 18:40] VITALS: BP 131/68
[2019-03-14] MEDS: ATORVASTATIN CALCIUM 20 MG TABLET PO SCH (20:51)
[2019-03-14] MEDS: GABAPENTIN 300 MG CAPSULE. PO SCH (20:52)
--- NOTE | 2019-03-14 21:25 | PN ---
DATE: 03/14/2019 SUBJECTIVE: The patient is sitting comfortably in her bed, in no apparent distress. She denied any chest pain. Her right lower extremity is more swollen than the left, but denied any cough, phlegm or hemoptysis. PHYSICAL EXAMINATION: GENERAL: When I examined her this afternoon, she looked well and was clearly in no apparent respiratory distress. No pallor or jaundice, cyanosis, or thyromegaly. No jugular venous distension. No lower limb edema. VITAL SIGNS: Her heart rate was 78, blood pressure 116/55, temperature was 97.7, respiratory rate was 20 and oxygen saturation was 93% on 3 liters of oxygen. HEAD, EYES, EARS, NOSE AND THROAT: Showed normocephalic, atraumatic. NECK: Supple. HEART: Showed normal first and second heart sounds. No gallop, rub or murmur. CHEST: Clear to auscultation. No crepitation or rhonchi. ABDOMEN: Distended, soft, nontender. No guarding or rigidity. No organomegaly. All hernial orifice intact. Bowel sounds normal. NEUROLOGIC: She was awake, alert, responding appropriately. All her cranial nerves intact. She moves extremities without difficulty. She ambulates with a walker. Her intake over the last 24 hours was 1500, output was 2125. LABORATORY DATA: This morning showed a serum sodium 139, potassium 3.4, chloride 99, bicarbonate 33, anion gap of 7, BUN 42, creatinine 1.7. Estimated GFR was 29 mL per minute. Her glucose 159, calcium was 9.5, magnesium was 1.9. Her most recent white cell count was 6200. Hemoglobin 12.2, hematocrit 36, MCV 92 and platelet count of 198,000. ASSESSMENT: 1. Acute on chronic diastolic congestive heart failure, ejection fraction 50-55%, currently on IV Lasix 40 mg twice a day and metolazone 5 mg once a day. 2. Hypertension, well controlled. 3. Hyperlipidemia, on statin. 4. Hypothyroidism. She is both clinically and biochemically euthyroid. 5. Chronic obstructive pulmonary disease for which she is on bronchodilators. 6. Type 2 diabetes mellitus, reasonably controlled. 7. Acute on chronic kidney injury. Creatinine is fluctuating. Today, it is 1.7 mg/dL. 8. Hypokalemia with potassium slightly better at 3.4. 9. Right lower extremity is more swollen than the left lower extremity concerning for possible deep vein thrombosis. PLAN: My plan is to get arranged for her to have a venous Doppler ultrasound and if it is positive, we will probably arrange for her to have V/Q scan. Continue meanwhile with Zaroxolyn and IV Lasix. ANDRÉS HERNANDEZ MD DR: JENNIFER/shari JOB#: [id number] / [id number]
[2019-03-14 23:16] VITALS: BP 111/64
[2019-03-15] VITALS (7 sets, daily range): BP systolic 100–145; BP diastolic 53–69
--- NOTE | 2019-03-15 03:01 | RAD ---
Ultrasound venous Doppler INDICATION:Right leg swelling. TECHNIQUE: Grayscale, color Doppler and spectral waveform ultrasound images of the right lower extremity deep veins obtained. COMPARISON: None FINDINGS: The interrogated deep veins are compressible and demonstrate evidence of blood flow with normal respiratory variation and response to augmentation. IMPRESSION: No sonographic evidence of acute DVT of the right lower extremity deep veins. Electronically signed by: Arvind Prasad DO (03/15/2019 2:58 AM) [facility]
[2019-03-15] MEDS: IPRATRPIUM/ALBUTEROL 0.5/2.5MG 3 ML NEBU. NEB SCH ×4 (05:38→20:00)
[2019-03-15] MEDS: HEPARIN for SUB-Q USE 5,000 UNIT/ML VIAL. SQ SCH ×3 (05:44→22:06)
[2019-03-15] MEDS ORDERED: LEVOTHYROXINE 150 MCG TABLET PO SCH (06:00)
[2019-03-15 06:36] LABS: CALCIUM 9.5 mg/dL (8.5-10.1); CREATININE 1.7 mg/dL (0.6-1.0); GFR 28.9; POTASSIUM 3.4 mmol/L (3.5-5.1)
[2019-03-15] MEDS: HYDROcodone/APAP 5/325MG 1 TAB TABLET PO PRN ×2 (06:47→22:07)
[2019-03-15] MEDS: BUDESONIDE 0.5 MG/2 ML NEBU NEB SCH ×2 (08:00→20:00)
[2019-03-15] MEDS: metOLazone 2.5 MG TABLET PO SCH ×2 (09:00)
[2019-03-15] MEDS: PANTOPRAZOLE 40 MG TABLET. PO SCH (09:19)
[2019-03-15] MEDS: ASPIRIN 81 MG TAB.CHEW PO SCH (09:19)
[2019-03-15] MEDS: CITALOPRAM 10 MG TABLET. PO SCH (09:19)
[2019-03-15] MEDS: POTASSIUM CHLORIDE 20 MEQ TABLET.ER. PO SCH ×3 (09:20→22:08)
[2019-03-15] MEDS: MULTIVITAMIN with MINERAL TABLET. PO SCH (09:20)
[2019-03-15] MEDS: FEBUXOSTAT 40 MG TABLET PO SCH (09:20)
[2019-03-15] MEDS: DOCUSATE SODIUM 100 MG CAPSULE PO SCH (09:20)
[2019-03-15] MEDS: PYRIDOXINE 50 MG TABLET. PO SCH (09:20)
[2019-03-15] MEDS: GABAPENTIN 100 MG CAPSULE. PO SCH ×2 (09:20→18:10)
--- NOTE | 2019-03-15 11:19 | PDOC ---
PROGRESS NOTES Assessment 1. Acute on chronic diastolic heart failure: Recent 2-D echo in November 2018 showed normal LV systolic function with EF of 50-55%. Patient apparently had cardiac catheterization one year ago that did not show any significant coronary artery disease. Continues to have edema, right greater than the left. venous duplex study negative. ok diuresis with metolazone and lasix . 2. Hypertension: low normal, controlled 3. Hyperlipidemia: Continue statin therapy 4. Hypothyroidism: Continue levothyroxine 5. COPD: Treat per IM Subjective breathing improved. continued edema, no chest pain or palpitations, no lightheadedness Objective Vital Signs Date Time Temp Pulse Resp B/P (MAP) Pulse Ox O2 Delivery O2 Flow Rate FiO2 03/15/19 10:55 97.9 80 20 100/62 (75) 94 Nasal Cannula 3.0 Intake and Output 03/15/19 07:00 Intake Total 1730 ml Output Total 2900 ml Balance -1170 ml Intake Oral 1730 ml Output Urine Total 2900 ml Physical Exam gen: A+Ox3, NAD CV: RRR, no S3S4 Lungs: basilar crackles L>R abd: soft, non tender, +bowel sounds ext: 1-2+ edema Review of Relevant I have reviewed the following items federica (where applicable) has been applied. Labs Laboratory Tests Test 03/14/19 05:39 03/15/19 06:10 Sodium Level 139 mmol/L (136-145) 139 mmol/L (136-145) Potassium Level 3.4 mmol/L (3.5-5.1) 3.4 mmol/L (3.5-5.1) Chloride Level 99 mmol/L (98-107) 98 mmol/L (98-107) Carbon Dioxide Level 33 mmol/L (21-32) 34 mmol/L (21-32) Anion Gap 7 (6-14) 7 (6-14) Blood Urea Nitrogen 42 mg/dL (7-20) 44 mg/dL (7-20) Creatinine 1.7 mg/dL (0.6-1.0) 1.7 mg/dL (0.6-1.0) Estimated GFR (Cockcroft-Gault) 28.9 28.9 Glucose Level 159 mg/dL (70-99) 136 mg/dL (70-99) Calcium Level 9.5 mg/dL (8.5-10.1) 9.5 mg/dL (8.5-10.1) Magnesium Level 1.9 mg/dL (1.8-2.4) Medications Current Medications Nitroglycerin (Nitro-Bid Oint) 0.5 inch Q6HRS TP Last administered on 03/11/19 06:00; Start 03/11/19 at 00:00; Stop 03/11/19 at 10:33; Status DC Furosemide (Lasix) 40 mg 1X ONCE IVP Last administered on 03/10/19 20:14; Start 03/10/19 at 19:30; Stop 03/10/19 at 19:31; Status DC Furosemide (Lasix) 40 mg BID92 IVP Last administered on 03/14/19 14:27; Start 03/11/19 at 09:00 Metolazone (Zaroxolyn) 2.5 mg DAILY PO Last administered on 03/13/19 08:38; Start 03/11/19 at 09:00; Stop 03/13/19 at 12:07; Status DC Atenolol (Tenormin) 25 mg DAILY PO Last administered on 03/14/19 08:30; Start 03/11/19 at 09:00 Atorvastatin Calcium (Lipitor) 20 mg QHS PO Last administered on 03/14/19 20:51; Start 03/10/19 at 21:00 Febuxostat (Uloric) 40 mg QODAY PO Last administered on 03/14/19 08:32; Start 03/12/19 at 09:00 Gabapentin (Neurontin) 100 mg BIDAFTMEAL PO Last administered on 03/15/19 09:20; Start 03/11/19 at 09:00 Gabapentin (Neurontin) 300 mg HS PO Last administered on 03/14/19 20:52; Start 03/10/19 at 21:00 Albuterol/ Ipratropium (Duoneb) 3 ml QID NEB Last administered on 03/15/19 05:38; Start 03/10/19 at 21:00 Levothyroxine Sodium (Synthroid) 75 mcg QM@0600 PO Last administered on 03/13/19at 05:12; Start 03/13/19 at 06:00 Potassium Chloride (Klor-Con) 20 meq TID PO Last administered on 03/15/19 09:20; Start 03/10/19 at 21:00 Aspirin (Children'S Aspirin) 81 mg DAILYWBKFT PO Last administered on 03/15/19 09:19; Start 03/11/19 at 08:00 Non-Formulary Medication (Budesonide/ Formoterol Fumarate (Symbicort 160-4.5 Mcg Inhaler)) 2 puff BID IH ; Start 03/10/19 at 21:00; Stop 03/10/19 at 21:00; Status DC Pantoprazole Sodium (Protonix) 40 mg DAILYAC PO Last administered on 03/15/19 09:19; Start 03/11/19 at 07:30 Docusate Sodium (Colace) 200 mg DAILY PO Last administered on 03/15/19 09:20; Start 03/11/19 at 09:00 Citalopram Hydrobromide (CeleXA) 10 mg DAILY PO Last administered on 03/15/19 09:19; Start 03/11/19 at 09:00 Febuxostat (Uloric) 80 mg QODAY PO Last administered on 03/15/19 09:20; Start 03/11/19 at 09:00 Levothyroxine Sodium (Synthroid) 150 mcg QTUTHSASU@0600 PO Last administered on 03/14/19at 06:12; Start 03/11/19 at 06:00 Multivitamins/ Calcium (Thera-M Plus) 1 tab DAILY PO Last administered on 03/15/19 09:20; Start 03/11/19 at 09:00 Spironolactone (Aldactone) 25 mg DAILY PO Last administered on 03/14/19at 08:29; Start 03/11/19 at 09:00 Non-Formulary Medication (Umeclidinium [place] (Incruse Ellipta)) 62.5 mcg DAILY IH ; Start 03/11/19 at 09:00; Stop 03/11/19 at 09:00; Status DC Pyridoxine HCl (Vitamin B-6) 100 mg DAILY PO Last administered on 03/15/19 09:20; Start 03/11/19 at 09:00 Levothyroxine Sodium (Synthroid) 150 mcg QWE@0600 PO Last administered on 03/15/19at 05:44; Start 03/15/19 at 06:00 Levothyroxine Sodium (Synthroid) 150 mcg QFR@0600 PO ; Start 03/17/19 at 06:00 Budesonide (Pulmicort) 0.5 mg RTBID NEB Last administered on 03/14/19at 20:10; Start 03/11/19 at 08:00 Nitroglycerin (Nitro-Bid Oint) 1 inch STK-MED ONCE .ROUTE ; Start 03/10/19 at 21:13; Stop 03/11/19 at 10:33; Status DC Acetaminophen/ Hydrocodone Bitart (Lortab 5/325) 1 tab PRN Q6HRS PRN PO PAIN Last administered on 03/15/19 06:47; Start 03/11/19 at 18:00 Potassium Chloride (Klor-Con) 40 meq 1X ONCE PO Last administered on 03/12/19at 08:59; Start 03/12/19 at 07:30; Stop 03/12/19 at 07:49; Status DC Potassium Chloride (Klor-Con) 40 meq 1X ONCE PO Last administered on 03/12/19at 17:28; Start 03/12/19 at 16:30; Stop 03/12/19 at 16:31; Status DC Potassium Chloride (Klor-Con) 20 meq 1X ONCE PO Last administered on 03/13/19at 12:35; Start 03/13/19 at 12:30; Stop 03/13/19 at 12:31; Status DC Metolazone (Zaroxolyn) 5 mg DAILY PO Last administered on 03/14/19at 08:29; Start 03/14/19 at 09:00 Potassium Chloride (Klor-Con) 40 meq 1X ONCE PO Last administered on 03/14/19at 08:28; Start 03/14/19 at 07:45; Stop 03/14/19 at 07:51; Status DC Heparin Sodium (Porcine) (Heparin Sodium) 5,000 unit Q8HRS SQ Last administered on 03/15/19at 05:44; Start 03/14/19 at 14:00 Metolazone (Zaroxolyn) 2.5 mg DAILY PO Last administered on 03/14/19at 13:33; Start 03/14/19 at 12:45 Active Scripts Active Reported Vitamin D (Cholecalciferol (Vitamin D3)) 2,000 Unit Tablet 2,000 Unit PO DAILY Atenolol (Atenolol) 25 Mg Tablet 25 Mg PO DAILY Magnesium (Magnesium Oxide) 400 Mg Capsule 100 Mg PO QHS Ferrous Sulfate 325 Mg Tablet 325 Mg PO DAILY Glimepiride 1 Mg Tablet 1 Mg PO DAILY Ropinirole Hcl 3 Mg Tablet 3 Mg PO QHS Uloric (Febuxostat) 40 Mg Tablet 1 Tab PO EVEN DAYS AM Uloric (Febuxostat) 80 Mg Tablet 1 Tab PO ODD DAYS ONLY AM Levothyroxine Sodium 75 Mcg Tablet 1 Tab PO MONDAYS Gabapentin (Gabapentin) 100 Mg Capsule 100 Mg PO BIDAFTMEAL Multivitamins (Multivitamin) 1 Each Tablet 1 Tab PO DAILY Klor-Con M20 (Potassium Chloride) 20 Meq Tab.er.prt 1 Tab PO TID Incruse Ellipta (Umeclidinium [place]) 62.5 Mcg Blst.w.dev 62.5 Mcg IH DAILY Escitalopram Oxalate 5 Mg Tablet 5 Mg PO DAILY Dok (Docusate Sodium) 100 Mg Capsule 200 Mg PO DAILY Dexilant (Dexlansoprazole) 60 Mg Monster.mp 60 Mg PO DAILY Atorvastatin Calcium 20 Mg Tablet 20 Mg PO QHS Atenolol (Atenolol) 25 Mg Tablet 25 Mg PO DAILY Aspirin 81 Mg Tab.chew 81 Mg PO DAILY Spironolactone 25 Mg Tablet 1 Tab PO DAILY Levothyroxine Sodium 150 Mcg Tablet 1 Tab PO T,W,TH,F,SA,SUN Gabapentin (Gabapentin) 300 Mg Capsule 300 Mg PO HS Symbicort 160-4.5 Mcg Inhaler (Budesonide/Formoterol Fumarate) 10.2 Gm Hfa.aer.ad 2 Puff IH BID [vitamin b6] 100 Mg PO DAILY Duoneb 0.5-3(2.5) Mg/3 Ml (Albuterol/Ipratropium) 3 Ml Ampul.neb 3 Ml NEB QID Vitals/I & O Vital Sign - Last 24 Hours 03/14/19 03/14/19 03/14/19 03/14/19 14:54 15:33 18:40 19:10 Temp 98.2 97.8 Pulse 73 79 Resp 20 20 B/P (MAP) 120/71 (87) 131/68 (89) Pulse Ox 90 91 90 O2 Delivery Nasal Cannula Nasal Cannula Nasal Cannula Nasal Cannula O2 Flow Rate 3.0 3.0 3.0 3.0 03/14/19 03/14/19 03/14/19 03/14/19 20:11 20:16 20:52 21:50 Resp 18 20 Pulse Ox 94 94 O2 Delivery Nasal Cannula Nasal Cannula Nasal Cannula Nasal Cannula O2 Flow Rate 3.0 3.0 3.0 3.0 03/14/19 03/15/19 03/15/19 03/15/19 23:16 05:39 06:04 06:47 Temp 98.0 97.8 Pulse 81 84 Resp 20 24 18 B/P (MAP) 111/64 (80) 145/66 (92) Pulse Ox 94 95 98 O2 Delivery BiPAP/CPAP Nasal Cannula Nasal Cannula Nasal Cannula O2 Flow Rate 3.0 3.0 3.0 03/15/19 03/15/19 03/15/19 08:00 09:18 10:55 Temp 98.1 97.9 Pulse 59 80 Resp 18 20 B/P (MAP) 100/53 (69) 100/62 (75) Pulse Ox 97 94 O2 Delivery Nasal Cannula Nasal Cannula Nasal Cannula O2 Flow Rate 3.0 3.0 3.0 Intake and Output 03/14/19 03/14/19 03/15/19 15:00 23:00 07:00 Intake Total 800 ml 480 ml 450 ml Output Total 1000 ml 1300 ml 600 ml Balance -200 ml -820 ml -150 ml QUETA EUGENE APRN March 15, 2019 11:19
[2019-03-15] MEDS: FUROSEMIDE 40 MG/4 ML VIAL IVP SCH ×2 (14:00→15:35)
[2019-03-15] MEDS: SPIRONOLACTONE 25 MG TABLET PO SCH (15:34)
[2019-03-15] MEDS: ATENOLOL 25 MG TABLET PO SCH (15:35)
[2019-03-15] MEDS: GABAPENTIN 300 MG CAPSULE. PO SCH (22:07)
[2019-03-15] MEDS: ATORVASTATIN CALCIUM 20 MG TABLET PO SCH (22:07)
[2019-03-16] MEDS: LEVOTHYROXINE 150 MCG TABLET PO SCH (05:51)
[2019-03-16] MEDS: IPRATRPIUM/ALBUTEROL 0.5/2.5MG 3 ML NEBU. NEB SCH ×3 (05:51→13:48)
--- NOTE | 2019-03-16 05:51 | PN ---
DATE: 03/15/2019 SUBJECTIVE: The patient is resting, almost flat in bed comfortably, in no apparent distress. She managed to walk around with the physical therapy twice, working with the occupational therapy and feeling generally much better. Her venous Doppler ultrasound of the right lower extremity was negative for DVT. Her creatinine is trending up and her chest x-ray did not show any evidence of venous congestion. My plan is to arrange for her to have a pulmonary perfusion ventilation or V/Q scan hopefully tomorrow morning and if it is normal without evidence of pulmonary emboli, she can be discharged back to [facility]. PHYSICAL EXAMINATION: GENERAL: When I examined her this afternoon, she looked well and was clearly in no apparent respiratory distress, pale, but no jaundice, cyanosis, or thyromegaly. No jugular venous distension. No lower limb edema. VITAL SIGNS: Her heart rate was 76, blood pressure was 123/66, temperature was 98.1, respiratory rate 20, and oxygen saturation was 93% on 3 liters of oxygen. HEAD, EYES, EARS, NOSE AND THROAT: Showed normocephalic, atraumatic. NECK: Supple. HEART: Showed normal first and second heart sounds. No gallop, rub or murmur. CHEST: Clear to auscultation. No crepitation or rhonchi. ABDOMEN: Distended, soft, nontender. No guarding or rigidity. No organomegaly. All hernial orifice intact. Bowel sounds normal. NEUROLOGIC: She is awake, alert, responding appropriately. All cranial nerves are intact. She moves extremities without difficulty. Her intake over the last 24 hours was 1000, output was 2225. LABORATORY DATA: Her lab work this morning showed a white cell count 6200, hemoglobin 12, hematocrit 36, MCV 92, and platelet count of 98,000. Her chemistry showed a serum sodium 139, potassium 3.4, chloride 98, bicarbonate 34, anion gap of 7, BUN 44, creatinine 1.7, estimated GFR was 28 mL per minute. Her glucose 136, calcium was 9.5. ASSESSMENT: 1. Acute on chronic diastolic congestive heart failure with ejection fraction of 50-55%, currently on IV Lasix twice a day and metolazone 5 mg once a day. 2. Hypertension, well controlled. 3. Hyperlipidemia, on statin. 4. Hypothyroidism. She is both clinically and biochemically euthyroid. 5. Chronic obstructive pulmonary disease, which she is on bronchodilator. I could not hear any wheezing. 6. Type 2 diabetes mellitus, seems to be reasonably controlled. 7. Acute on chronic kidney injury. Creatinine is trending upward at 1.7 mg/dL. 8. Hypokalemia with serum potassium slightly better at 3.4. 9. Right lower extremity is more swollen than left; however, the venous Doppler ultrasound was negative. PLAN: My plan is to continue with IV Lasix and metolazone. I will arrange for her to have a V/Q scan tomorrow and if it was negative then she can be discharged back to [facility]. ANDRÉS HERNANDEZ MD DR: JENNIFER/shari JOB#: [id number] / [id number]
[2019-03-16] MEDS: HEPARIN for SUB-Q USE 5,000 UNIT/ML VIAL. SQ SCH ×2 (05:52→13:38)
[2019-03-16 06:04] VITALS: BP 90/52
[2019-03-16 06:28] LABS: HEMOGLOBIN 12.3 g/dL (12.0-15.5); RED BLOOD COUNT 3.93 x10^6/uL (3.50-5.40); WHITE BLOOD COUNT 6.7 x10^3/uL (4.0-11.0)
[2019-03-16 07:01] LABS: ALBUMIN 3.1 g/dL (3.4-5.0); ALBUMIN/GLOBULIN RATIO 0.8 (1.0-1.7); CALCIUM 9.4 mg/dL (8.5-10.1); CREATININE 1.6 mg/dL (0.6-1.0); POTASSIUM 3.5 mmol/L (3.5-5.1); TOTAL BILIRUBIN 0.3 mg/dL (0.2-1.0); TOTAL PROTEIN 6.8 g/dL (6.4-8.2)
[2019-03-16] MEDS: DOCUSATE SODIUM 100 MG CAPSULE PO SCH (07:49)
[2019-03-16] MEDS: MULTIVITAMIN with MINERAL TABLET. PO SCH (07:49)
[2019-03-16] MEDS: ASPIRIN 81 MG TAB.CHEW PO SCH (07:49)
[2019-03-16] MEDS: GABAPENTIN 100 MG CAPSULE. PO SCH (07:49)
[2019-03-16] MEDS: POTASSIUM CHLORIDE 20 MEQ TABLET.ER. PO SCH ×2 (07:49→13:38)
[2019-03-16] MEDS: PANTOPRAZOLE 40 MG TABLET. PO SCH (07:49)
[2019-03-16] MEDS: CITALOPRAM 10 MG TABLET. PO SCH (07:49)
[2019-03-16] MEDS: PYRIDOXINE 50 MG TABLET. PO SCH (07:52)
[2019-03-16] MEDS: FEBUXOSTAT 40 MG TABLET PO SCH (07:52)
[2019-03-16] MEDS: metOLazone 2.5 MG TABLET PO SCH ×2 (07:59)
[2019-03-16] MEDS: FUROSEMIDE 40 MG/4 ML VIAL IVP SCH ×2 (07:59→11:16)
[2019-03-16] MEDS: BUDESONIDE 0.5 MG/2 ML NEBU NEB SCH (08:00)
[2019-03-16] MEDS: SPIRONOLACTONE 25 MG TABLET PO SCH ×2 (08:00→11:16)
[2019-03-16] MEDS: ATENOLOL 25 MG TABLET PO SCH ×2 (08:00→09:00)
[2019-03-16 10:09] VITALS: BP_SYST 108; BP_SYST 120; BP_DIAS 62; BP_DIAS 66
[2019-03-16 10:10] VITALS: BP 114/64
[2019-03-16 11:15] VITALS: BP 110/51
--- NOTE | 2019-03-16 12:52 | PDOC ---
PROGRESS NOTES Assessment 1. Acute on chronic diastolic heart failure: Recent 2-D echo in November 2018 showed normal LV systolic function with EF of 50-55%. Patient apparently had cardiac catheterization one year ago that did not show any significant coronary artery disease. Continues to have edema, right greater than the left. venous duplex study negative. ok diuresis with metolazone and lasix . venous reflux study as outpatient. Compression stockings when out of bed. 2. Hypertension: mild hypotension. SHANELL hose, decrease diuretics. 3. Hyperlipidemia: Continue statin therapy 4. Hypothyroidism: Continue levothyroxine 5. COPD: Treat per IM Subjective no dyspnea, no chest pain, no lightheadedness. continued edema Objective Vital Signs Date Time Temp Pulse Resp B/P (MAP) Pulse Ox O2 Delivery O2 Flow Rate FiO2 03/16/19 11:15 98.1 73 20 110/51 (70) 95 Nasal Cannula 3.0 Intake and Output 03/16/19 07:00 Intake Total 1610 ml Output Total 2450 ml Balance -840 ml Intake Oral 1610 ml Output Urine Total 2450 ml # Voids 3 Abdomen: Normal bowel sounds, Soft, No tenderness Heart: Regular rate, Normal S1, Normal S2 Extremities: No clubbing, No cyanosis, Other (+edema) General: Alert, Oriented X3, Cooperative, No acute distress HEENT: Atraumatic, EOMI Lungs: Clear to auscultation Neuro: Normal speech, Strength at 5/5 X4 ext Psych/Mental Status: Mental status NL, Mood NL Review of Relevant I have reviewed the following items federica (where applicable) has been applied. Labs Laboratory Tests Test 03/15/19 06:10 03/16/19 06:05 Sodium Level 139 mmol/L (136-145) 138 mmol/L (136-145) Potassium Level 3.4 mmol/L (3.5-5.1) 3.5 mmol/L (3.5-5.1) Chloride Level 98 mmol/L (98-107) 99 mmol/L (98-107) Carbon Dioxide Level 34 mmol/L (21-32) 33 mmol/L (21-32) Anion Gap 7 (6-14) 6 (6-14) Blood Urea Nitrogen 44 mg/dL (7-20) 40 mg/dL (7-20) Creatinine 1.7 mg/dL (0.6-1.0) 1.6 mg/dL (0.6-1.0) Estimated GFR (Cockcroft-Gault) 28.9 31.0 Glucose Level 136 mg/dL (70-99) 128 mg/dL (70-99) Calcium Level 9.5 mg/dL (8.5-10.1) 9.4 mg/dL (8.5-10.1) White Blood Count 6.7 x10^3/uL (4.0-11.0) Red Blood Count 3.93 x10^6/uL (3.50-5.40) Hemoglobin 12.3 g/dL (12.0-15.5) Hematocrit 36.0 % (36.0-47.0) Mean Corpuscular Volume 92 fL (79-100) Mean Corpuscular Hemoglobin 31 pg (25-35) Mean Corpuscular Hemoglobin Concent 34 g/dL (31-37) Red Cell Distribution Width 15.0 % (11.5-14.5) Platelet Count 213 x10^3/uL (140-400) BUN/Creatinine Ratio 25 (6-20) Total Bilirubin 0.3 mg/dL (0.2-1.0) Aspartate Amino Transf (AST/SGOT) 25 U/L (15-37) Alanine Aminotransferase (ALT/SGPT) 29 U/L (14-59) Alkaline Phosphatase 77 U/L (46-116) Total Protein 6.8 g/dL (6.4-8.2) Albumin 3.1 g/dL (3.4-5.0) Albumin/Globulin Ratio 0.8 (1.0-1.7) Medications Current Medications Nitroglycerin (Nitro-Bid Oint) 0.5 inch Q6HRS TP Last administered on 03/11/19at 06:00; Start 03/11/19 at 00:00; Stop 03/11/19 at 10:33; Status DC Furosemide (Lasix) 40 mg 1X ONCE IVP Last administered on 03/10/19at 20:14; Start 03/10/19 at 19:30; Stop 03/10/19 at 19:31; Status DC Furosemide (Lasix) 40 mg BID92 IVP Last administered on 03/16/19at 11:16; Start 03/11/19 at 09:00 Metolazone (Zaroxolyn) 2.5 mg DAILY PO Last administered on 03/13/19 08:38; Start 03/11/19 at 09:00; Stop 03/13/19 at 12:07; Status DC Atenolol (Tenormin) 25 mg DAILY PO Last administered on 03/15/19 15:35; Start 03/11/19 at 09:00 Atorvastatin Calcium (Lipitor) 20 mg QHS PO Last administered on 03/15/19 22:07; Start 03/10/19 at 21:00 Febuxostat (Uloric) 40 mg QODAY PO Last administered on 03/16/19 07:52; Start 03/12/19 at 09:00 Gabapentin (Neurontin) 100 mg BIDAFTMEAL PO Last administered on 03/16/19 07:49; Start 03/11/19 at 09:00 Gabapentin (Neurontin) 300 mg HS PO Last administered on 03/15/19 22:07; Start 03/10/19 at 21:00 Albuterol/ Ipratropium (Duoneb) 3 ml QID NEB Last administered on 03/15/19 05:38; Start 03/10/19 at 21:00 Levothyroxine Sodium (Synthroid) 75 mcg QM@0600 PO Last administered on 03/13/19 05:12; Start 03/13/19 at 06:00 Potassium Chloride (Klor-Con) 20 meq TID PO Last administered on 03/16/19 07:49; Start 03/10/19 at 21:00 Aspirin (Children'S Aspirin) 81 mg DAILYWBKFT PO Last administered on 03/16/19 07:49; Start 03/11/19 at 08:00 Non-Formulary Medication (Budesonide/ Formoterol Fumarate (Symbicort 160-4.5 Mcg Inhaler)) 2 puff BID IH ; Start 03/10/19 at 21:00; Stop 03/10/19 at 21:00; Status DC Pantoprazole Sodium (Protonix) 40 mg DAILYAC PO Last administered on 03/16/19 07:49; Start 03/11/19 at 07:30 Docusate Sodium (Colace) 200 mg DAILY PO Last administered on 03/16/19 07:49; Start 03/11/19 at 09:00 Citalopram Hydrobromide (CeleXA) 10 mg DAILY PO Last administered on 03/16/19 07:49; Start 03/11/19 at 09:00 Febuxostat (Uloric) 80 mg QODAY PO Last administered on 03/15/19 09:20; Start 03/11/19 at 09:00 Levothyroxine Sodium (Synthroid) 150 mcg QTUTHSASU@0600 PO Last administered on 03/16/19 05:51; Start 03/11/19 at 06:00 Multivitamins/ Calcium (Thera-M Plus) 1 tab DAILY PO Last administered on 03/16/19 07:49; Start 03/11/19 at 09:00 Spironolactone (Aldactone) 25 mg DAILY PO Last administered on 03/16/19 11:16; Start 03/11/19 at 09:00 Non-Formulary Medication (Umeclidinium [place] (Incruse Ellipta)) 62.5 mcg DAILY IH ; Start 03/11/19 at 09:00; Stop 03/11/19 at 09:00; Status DC Pyridoxine HCl (Vitamin B-6) 100 mg DAILY PO Last administered on 03/16/19 07:52; Start 03/11/19 at 09:00 Levothyroxine Sodium (Synthroid) 150 mcg QWE@0600 PO Last administered on 03/15/19at 05:44; Start 03/15/19 at 06:00 Levothyroxine Sodium (Synthroid) 150 mcg QFR@0600 PO ; Start 03/17/19 at 06:00 Budesonide (Pulmicort) 0.5 mg RTBID NEB Last administered on 03/14/19at 20:10; Start 03/11/19 at 08:00 Nitroglycerin (Nitro-Bid Oint) 1 inch STK-MED ONCE .ROUTE ; Start 03/10/19 at 21:13; Stop 03/11/19 at 10:33; Status DC Acetaminophen/ Hydrocodone Bitart (Lortab 5/325) 1 tab PRN Q6HRS PRN PO PAIN Last administered on 03/15/19at 22:07; Start 03/11/19 at 18:00 Potassium Chloride (Klor-Con) 40 meq 1X ONCE PO Last administered on 03/12/19at 08:59; Start 03/12/19 at 07:30; Stop 03/12/19 at 07:49; Status DC Potassium Chloride (Klor-Con) 40 meq 1X ONCE PO Last administered on 03/12/19at 17:28; Start 03/12/19 at 16:30; Stop 03/12/19 at 16:31; Status DC Potassium Chloride (Klor-Con) 20 meq 1X ONCE PO Last administered on 03/13/19at 12:35; Start 03/13/19 at 12:30; Stop 03/13/19 at 12:31; Status DC Metolazone (Zaroxolyn) 5 mg DAILY PO Last administered on 03/14/19at 08:29; Start 03/14/19 at 09:00 Potassium Chloride (Klor-Con) 40 meq 1X ONCE PO Last administered on 03/14/19at 08:28; Start 03/14/19 at 07:45; Stop 03/14/19 at 07:51; Status DC Heparin Sodium (Porcine) (Heparin Sodium) 5,000 unit Q8HRS SQ Last administered on 03/16/19at 05:52; Start 03/14/19 at 14:00 Metolazone (Zaroxolyn) 2.5 mg DAILY PO Last administered on 03/14/19at 13:33; Start 03/14/19 at 12:45 Active Scripts Active Reported Vitamin D (Cholecalciferol (Vitamin D3)) 2,000 Unit Tablet 2,000 Unit PO DAILY Atenolol (Atenolol) 25 Mg Tablet 25 Mg PO DAILY Magnesium (Magnesium Oxide) 400 Mg Capsule 100 Mg PO QHS Ferrous Sulfate 325 Mg Tablet 325 Mg PO DAILY Glimepiride 1 Mg Tablet 1 Mg PO DAILY Ropinirole Hcl 3 Mg Tablet 3 Mg PO QHS Uloric (Febuxostat) 40 Mg Tablet 1 Tab PO EVEN DAYS AM Uloric (Febuxostat) 80 Mg Tablet 1 Tab PO ODD DAYS ONLY AM Levothyroxine Sodium 75 Mcg Tablet 1 Tab PO MONDAYS Gabapentin (Gabapentin) 100 Mg Capsule 100 Mg PO BIDAFTMEAL Multivitamins (Multivitamin) 1 Each Tablet 1 Tab PO DAILY Klor-Con M20 (Potassium Chloride) 20 Meq Tab.er.prt 1 Tab PO TID Incruse Ellipta (Umeclidinium [place]) 62.5 Mcg Blst.w.dev 62.5 Mcg IH DAILY Escitalopram Oxalate 5 Mg Tablet 5 Mg PO DAILY Dok (Docusate Sodium) 100 Mg Capsule 200 Mg PO DAILY Dexilant (Dexlansoprazole) 60 Mg mp 60 Mg PO DAILY Atorvastatin Calcium 20 Mg Tablet 20 Mg PO QHS Atenolol (Atenolol) 25 Mg Tablet 25 Mg PO DAILY Aspirin 81 Mg Tab.chew 81 Mg PO DAILY Spironolactone 25 Mg Tablet 1 Tab PO DAILY Levothyroxine Sodium 150 Mcg Tablet 1 Tab PO T,W,TH,F,SA,SUN Gabapentin (Gabapentin) 300 Mg Capsule 300 Mg PO HS Symbicort 160-4.5 Mcg Inhaler (Budesonide/Formoterol Fumarate) 10.2 Gm Hfa.aer.ad 2 Puff IH BID [vitamin b6] 100 Mg PO DAILY Duoneb 0.5-3(2.5) Mg/3 Ml (Albuterol/Ipratropium) 3 Ml Ampul.neb 3 Ml NEB QID Vitals/I & O Vital Sign - Last 24 Hours 03/15/19 03/15/19 03/15/19 03/15/19 14:35 15:35 19:16 20:14 Temp 98.1 98.0 Pulse 76 76 81 Resp 20 20 B/P (MAP) 123/66 (85) 123/66 117/64 (81) Pulse Ox 93 90 O2 Delivery Nasal Cannula Nasal Cannula O2 Flow Rate 3.0 3.0 03/15/19 03/15/19 03/15/19 03/16/19 22:07 23:03 23:13 06:04 Temp 98.0 Pulse 76 74 Resp 20 22 20 22 B/P (MAP) 120/69 (86) 90/52 (65) Pulse Ox 90 97 97 94 O2 Delivery Nasal Cannula Nasal Cannula Nasal Cannula O2 Flow Rate 3.0 3.0 3.0 03/16/19 03/16/19 03/16/19 03/16/19 08:02 10:09 10:09 10:10 Pulse 78 78 B/P (MAP) 108/62 (77) 120/66 (84) 114/64 (81) O2 Delivery Nasal Cannula O2 Flow Rate 3.0 03/16/19 11:15 Temp 98.1 Pulse 73 Resp 20 B/P (MAP) 110/51 (70) Pulse Ox 95 O2 Delivery Nasal Cannula O2 Flow Rate 3.0 Intake and Output 03/15/19 03/15/19 03/16/19 15:00 23:00 07:00 Intake Total 480 ml 1010 ml 120 ml Output Total 2050 ml 400 ml Balance 480 ml -1040 ml -280 ml QUETA EUGENE [employer]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
[2019-03-16 14:25] VITALS: BP 112/54
[2019-03-16] MEDS ORDERED: APIX2.5T PO (16:23)
--- NOTE | 2019-03-16 20:30 | DS ---
DATE OF DISCHARGE: 03/16/2019 HOSPITAL COURSE: The patient is an 79-year-old female patient, a resident at [facility], who was admitted with increasing shortness of breath and swelling of both legs. We did treat her with IV Lasix and increase her metolazone and unfortunately, her blood pressure sometimes low and she is unable to tolerate any increase in her Lasix. Her right lower extremity was more swollen than the left, so we did a venous Doppler ultrasound that was negative for DVT. Her chest x-ray was mostly unremarkable. The heart and pulmonary vasculature appears within normal limits. Her patchy bilateral lung airspace opacities, mild prominent appearing bilateral interstitial lung markings similar to prior exam. The pleural margins are clear. As the patient remained stable, has been up and about walking with a walker with the physical therapist. We attempted to do a V/Q scan. Unfortunately, the machine broke, so a decision was made to discharge her home on Eliquis 2.5 mg twice a day based on her age and kidney function and her weight. As their pharmacy recommendation, she has an order to do the V/Q scan as an outpatient and if it is negative, we will discontinue Eliquis. We could not do the CT angiography of the chest because of her impaired kidney function. PHYSICAL EXAMINATION: GENERAL: When I saw her this afternoon, she was resting slightly propped up in bed, in no apparent respiratory distress. No pallor, jaundice, cyanosis, or thyromegaly. No jugular venous distension. No lower limb edema. VITAL SIGNS: Her heart rate was 76, blood pressure was 112/54, temperature was 98.3, respiratory rate was 20, and oxygen saturation was 92% on 3 liters of oxygen. HEAD, EYES, EARS, NOSE AND THROAT: Showed normocephalic, atraumatic. NECK: Supple. HEART: Showed normal first and second heart sounds. No gallop, rub or murmur. CHEST: Clear to auscultation. No crepitation or rhonchi. ABDOMEN: Distended, soft, nontender. NEUROLOGIC: She is awake, alert, responding appropriately. All cranial nerves intact. She moves extremities without difficulty. She ambulates with a walker. Her intake over the last 24 hours was 1730 and output was 2900. LABORATORY DATA: As of this morning, her white cell count was 6700, hemoglobin 12.3, hematocrit 36, MCV 92, and platelet count 213,000. Her chemistry showed a serum sodium 138, potassium 3.5, chloride 99, bicarbonate 33, anion gap of 6, BUN 40, creatinine 1.6, estimated GFR was 31 mL per minute. Her glucose was 128, calcium was 9.4. Total bilirubin, AST, ALT, alkaline phosphatase were normal. Her total protein was 6.8, albumin was 3.1. DISCHARGE MEDICATIONS: She was discharged home to continue on apixaban 2.5 mg twice a day, aspirin 81 mg once a day, atenolol 25 mg once a day, atorvastatin calcium 20 mg at bedtime. She is on Symbicort 160/4.5 two puffs twice a day, cholecalciferol for vitamin D3 2000 international unit once a day, Dexilant 60 mg daily, docusate sodium 200 mg once a day, escitalopram oxalate 5 mg daily, Uloric 80 mg every other day, Uloric 40 mg every even days, ferrous sulfate 325 mg daily, gabapentin 300 mg at bedtime, gabapentin 100 mg twice a day, glimepiride 1 mg daily, and ipratropium bromide, albuterol sulfate with DuoNeb 0.5/2.5 mg in 3 mL by nebulizer 4 times a day. She is on levothyroxine 225 mcg once a day, magnesium oxide 400 mg once a day, multivitamin 1 tablet once a day, potassium chloride 20 mEq three times a day, Requip 3 mg at bedtime, spironolactone 25 mg daily and Incruse Ellipta 1 puff daily and thiamine 100 mg once a day. FINAL DISCHARGE DIAGNOSES: 1. Acute on chronic diastolic congestive heart failure with ejection fraction of 50-55%, well compensated. She was treated with IV Lasix and metolazone. 2. Hypertension, well controlled. 3. Hyperlipidemia, on statin. 4. Hypothyroidism. She is both clinically and biochemically euthyroid. 5. Chronic obstructive pulmonary disease, clinically quiescent. 6. Type 2 diabetes mellitus, seems to be reasonably controlled. 7. Acute on chronic kidney injury. Her creatinine is stabilized around 1.6 mg/dL. 8. Hypokalemia, improved. Her today's potassium was 3.5. 9. The right lower extremity is more swollen than the left; however, her venous Doppler ultrasound was negative, then we did order a V/Q scan. Unfortunately, the machine broke and therefore, she will be discharged on apixaban 2.5 mg twice a day and we will do the V/Q scan as an outpatient. If it is negative, we will discontinue the apixaban. ANDRÉS HERNANDEZ MD DR: JENNIFER/shari JOB#: [id number] / [id number]
[2019-03-16] MEDS ORDERED: FUROSEMIDE 40 MG TABLET PO SCH (21:00)
[2019-03-17] MEDS ORDERED: LEVOTHYROXINE 150 MCG TABLET PO SCH (06:00)
== END 2019-03-16 17:28 | disposition home or self-care (01) | DRG 291 ==
LOC: ICU 18:50 → 1 SOUTH 03-11 21:12
PROVIDERS: ADMIT Internal Medicine; ATTEND Internal Medicine
DX: I13.0 Hypertensive heart and chronic kidney disease with heart failure and stage 1 through stage 4 chronic kidney disease, or unspecified chronic kidney disease (principal); I50.43 Acute on chronic combined systolic (congestive) and diastolic (congestive) heart failure; N17.9 Acute kidney failure, unspecified; J96.11 Chronic respiratory failure with hypoxia; E87.6 Hypokalemia; E03.9 Hypothyroidism, unspecified; E11.22 Type 2 diabetes mellitus with diabetic chronic kidney disease; E78.5 Hyperlipidemia, unspecified; G47.33 Obstructive sleep apnea (adult) (pediatric); J44.9 Chronic obstructive pulmonary disease, unspecified; Z96.653 Presence of artificial knee joint, bilateral; N18.9 Chronic kidney disease, unspecified; Z79.01 Long term (current) use of anticoagulants; Z79.899 Other long term (current) drug therapy; Z87.891 Personal history of nicotine dependence; Z98.41 Cataract extraction status, right eye; Z98.42 Cataract extraction status, left eye; Z99.81 Dependence on supplemental oxygen; Z90.721 Acquired absence of ovaries, unilateral; Z88.1 Allergy status to other antibiotic agents; Z88.8 Allergy status to other drugs, medicaments and biological substances
CPT/HCPCS: 36415; 71046; 80048; 80053; 82947; 83735; 83880; 84443; 84484; 85025; 85027; 87641; 93005; 93971; 94640; J1644; J1940; J7620; J7626; 97110; 97530; 97535

== ENCOUNTER 2019-07-21 14:00 | Emergency (ER) | payer MEDICARE ==
[~2019-07-21] VITALS: Ht 154.9 cm; Wt 104.3 kg
[~2019-07-21 14:00] MED LIST changes: +APIX2.5T PO; +CHOL20002 PO; +FERR325T14 PO; +GLIM1TAB2 PO; +ROPI3TAB4 PO
[2019-07-21 14:53] LABS: BASO # 0.1 x10^3/uL (0.0-0.2); BASO % 1 % (0-3); EOS # 0.2 x10^3/uL (0.0-0.7); EOS % 2 % (0-3); HEMATOCRIT 39.4 % (36.0-47.0); HEMOGLOBIN 13.1 g/dL (12.0-15.5); LYMPH # 2.3 x10^3/uL (1.0-4.8); LYMPH % 26 % (24-48); MEAN CORPUSCULAR HEMOGLOBIN 31 pg (25-35); MEAN CORPUSCULAR HGB CONC 33 g/dL (31-37); MEAN CORPUSCULAR VOLUME 92 fL (79-100); MONO # 0.9 x10^3/uL (0.0-1.1); MONO % 10 % (0-9); NEUT # 5.5 x10^3uL (1.8-7.7); NEUT % 62 % (31-73); PLATELET COUNT 259 x10^3/uL (140-400); RED BLOOD COUNT 4.27 x10^6/uL (3.50-5.40); RED CELL DISTRIBUTION WIDTH 14.9 % (11.5-14.5); WHITE BLOOD COUNT 8.8 x10^3/uL (4.0-11.0)
[2019-07-21 15:02] LABS: CLARITY,URINE CLEAR; COLOR,URINE STRAW
[2019-07-21 15:03] LABS: BACTERIA,URINE FEW /HPF (0-FEW); BILIRUBIN,URINE NEG (NEG); GLUCOSE,URINE NEG (NEG); NITRITE,URINE NEG (NEG); RBC,URINE OCC /HPF (0-2); SQUAMOUS EPITHELIAL CELL,UR FEW /LPF; UROBILINOGEN,URINE 0.2 mg/dL (0.2 mg/dL); WBC,URINE OCC /HPF (0-4)
[2019-07-21 15:33] LABS: ALBUMIN 3.8 g/dL (3.4-5.0); CALCIUM 9.2 mg/dL (8.5-10.1); CREATININE 1.5 mg/dL (0.6-1.0); GFR 33.4; TOTAL BILIRUBIN 0.3 mg/dL (0.2-1.0); TOTAL PROTEIN 7.5 g/dL (6.4-8.2)
[2019-07-21 15:34] LABS: POTASSIUM 4.1 mmol/L (3.5-5.1)
--- NOTE | 2019-07-21 17:18 | PHYS DOC ---
Past History Past Medical History: COPD, Depression, GERD, High Cholesterol, Heart Disease, Hypertension, Pneumonia, Other Additional Past Medical Histor: RLS, HYPERGLYCEMIA, NEUROPATHY (BEVERLY YU MD) Past Surgical History: Appendectomy, Knee Replacement, Tonsillectomy (BEVERLY YU MD) Alcohol Use: None Drug Use: None (BEVERLY YU MD) Adult General Chief Complaint Chief Complaint: ABDOMINAL PAIN HPI HPI Patient is a 79 yo f presenting to the ER with chief complaint of 2 days of right flank burning sensation pain in the right posterior back radiates to the right groin region she has no fever no vomiting no nausea worse with palpation and movement. no abdo pain really it smostly flank/back area. doctor noted from [facility] to come to er for eval. (BEVERLY YU MD) Review of Systems Review of Systems Constitutional: Denies fever or chills [] Eyes: Denies change in visual acuity, redness, or eye pain [] HENT: Denies nasal congestion or sore throat [] Respiratory: Denies cough or shortness of breath [] Cardiovascular: No additional information not addressed in HPI [] GI: Denies abdominal pain, nausea, vomiting, bloody stools or diarrhea [] : Denies dysuria or hematuria [] Musculoskeletal: Denies back pain or joint pain [] Integument: Denies rash or skin lesions [] Neurologic: Denies headache, focal weakness or sensory changes [] Endocrine: Denies polyuria or polydipsia [] All other systems were reviewed and found to be within normal limits, except as documented in this note. (BEVERLY YU MD) Current Medications Current Medications Current Medications Medications (Trade) Dose Ordered Sig/Melecio Start Time Stop Time Status Last Admin Dose Admin Fentanyl Citrate (Fentanyl 2ml Vial) 50 mcg 1X ONCE 07/21/19 14:45 07/21/19 14:46 DC 07/21/19 14:44 50 MCG (BEVERLY YU MD) Allergies Allergies Allergies Coded Allergies Type Severity Reaction Last Updated Verified amoxicillin Allergy Intermediate 02/09/19 Yes clavulanic acid Allergy Intermediate 02/09/19 Yes simvastatin Allergy Intermediate 02/09/19 Yes latex Allergy Unknown 07/21/19 Yes (BEVERLY YU MD) Physical Exam Physical Exam Constitutional: Well developed, well nourished, no acute distress, non-toxic appearance. [] HENT: Normocephalic, atraumatic, bilateral external ears normal, oropharynx moist, no oral exudates, nose normal. [] Eyes: PERRLA, EOMI, conjunctiva normal, no discharge. [] Neck: Normal range of motion, no tenderness, supple, no stridor. [] Cardiovascular:Heart rate regular rhythm, no murmur [] Lungs & Thorax: Bilateral breath sounds clear to auscultation [] Abdomen: Bowel sounds normal, soft, no tenderness, no masses, no pulsatile masses. [] no hernia. Skin: Warm, dry, no erythema, no rash. [] Back:reproducible right paraspinous ttp no rash seen Extremities: No tenderness, no cyanosis, no clubbing, ROM intact, no edema. [] Neurologic: Alert and oriented X 3, normal motor function, normal sensory function, no focal deficits noted. [] Psychologic: Affect normal, judgement normal, mood normal. [] (BEVERLY YU MD) Current Patient Data Vital Signs Vital Signs Date Time Temp Pulse Resp B/P (MAP) Pulse Ox O2 Delivery O2 Flow Rate FiO2 07/21/19 15:46 68 20 107/50 (69) 95 Room Air 07/21/19 15:16 3.0 07/21/19 14:10 98.0 Lab Results Laboratory Tests Test 07/21/19 14:30 White Blood Count 8.8 x10^3/uL (4.0-11.0) Red Blood Count 4.27 x10^6/uL (3.50-5.40) Hemoglobin 13.1 g/dL (12.0-15.5) Hematocrit 39.4 % (36.0-47.0) Mean Corpuscular Volume 92 fL (79-100) Mean Corpuscular Hemoglobin 31 pg (25-35) Mean Corpuscular Hemoglobin Concent 33 g/dL (31-37) Red Cell Distribution Width 14.9 % (11.5-14.5) H Platelet Count 259 x10^3/uL (140-400) Neutrophils (%) (Auto) 62 % (31-73) Lymphocytes (%) (Auto) 26 % (24-48) Monocytes (%) (Auto) 10 % (0-9) H Eosinophils (%) (Auto) 2 % (0-3) Basophils (%) (Auto) 1 % (0-3) Neutrophils # (Auto) 5.5 x10^3uL (1.8-7.7) Lymphocytes # (Auto) 2.3 x10^3/uL (1.0-4.8) Monocytes # (Auto) 0.9 x10^3/uL (0.0-1.1) Eosinophils # (Auto) 0.2 x10^3/uL (0.0-0.7) Basophils # (Auto) 0.1 x10^3/uL (0.0-0.2) Urine Collection Type Unknown Urine Color Straw Urine Clarity Clear Urine pH 7.0 Urine Specific [place] 1.015 Urine Protein Neg (NEG-TRACE) Urine Glucose (UA) Neg mg/dL (NEG) Urine Ketones (Stick) Neg mg/dL (NEG) Urine Blood Neg (NEG) Urine Nitrite Neg (NEG) Urine Bilirubin Neg (NEG) Urine Urobilinogen Dipstick 0.2 mg/dL (0.2 mg/dL) Urine Leukocyte Esterase Neg (NEG) Urine RBC Occ /HPF (0-2) Urine WBC Occ /HPF (0-4) Urine Squamous Epithelial Cells Few /LPF Urine Bacteria Few /HPF (0-FEW) Sodium Level 140 mmol/L (136-145) Potassium Level 4.1 mmol/L (3.5-5.1) Chloride Level 100 mmol/L (98-107) Carbon Dioxide Level 29 mmol/L (21-32) Anion Gap 11 (6-14) Blood Urea Nitrogen 32 mg/dL (7-20) H Creatinine 1.5 mg/dL (0.6-1.0) H Estimated GFR (Cockcroft-Gault) 33.4 BUN/Creatinine Ratio 21 (6-20) H Glucose Level 100 mg/dL (70-99) H Calcium Level 9.2 mg/dL (8.5-10.1) Total Bilirubin 0.3 mg/dL (0.2-1.0) Aspartate Amino Transferase (AST) 23 U/L (15-37) Alanine Aminotransferase (ALT) 23 U/L (14-59) Alkaline Phosphatase 110 U/L (46-116) Troponin I Quantitative < 0.017 ng/mL (0-0.055) Total Protein 7.5 g/dL (6.4-8.2) Albumin 3.8 g/dL (3.4-5.0) Albumin/Globulin Ratio 1.0 (1.0-1.7) Lipase 132 U/L (73-393) (BEVERLY YU MD) EKG EKG []nsr rate 73 no ischemic chagnes noted. no stemi no ischemia. (BEVERLY YU MD) Radiology/Procedures Radiology/Procedures [] Impressions: Impression: No evidence of urinary tract calculus or obstruction mild atelectasis or infiltrate in lung bases question tiny calculus in the gallbladder neck or cystic duct and no gallbladder distention however colonic diverticulosis without evidence of acute colitis. This was transcribed by me based on faxed report due to delay in transfer of formal report into the system. (BEVERLY YU MD) Radiology/Procedures [address] [address] IMAGING REPORT Signed PATIENT: BOBBI EASTMAN JACCOUNT: [id number] : 1940 LOCATION: ER AGE: 79 SEX: F EXAM STATUS: REG ER ORD. PHYSICIAN: BEVERLY YU MD REASON: ruq pain PROCEDURE: ABDOMEN LTD Limited abdominal ultrasound HISTORY: Right upper quadrant pain. FINDINGS: Exam is technically difficult due to obesity. Pancreas poorly visualized. No evidence of gallstone or gallbladder wall thickening. Common bile duct poorly seen. Liver is enlarged, 19.5 cm, with coarse echogenicity suggesting steatosis. This otherwise limited penetration of the liver reduces sensitivity for liver lesion. Right kidney measures 9.5 cm longitudinal without evidence of hydronephrosis. There is renal cortical thinning. Aorta is poorly seen. Inferior vena cava is barely visualized. IMPRESSION: 1. No evidence of cholelithiasis. 2. Hepatomegaly with steatosis. 3. Apparent thinning or atrophy of the renal cortex. 4. Limited exam due to patient body habitus. Electronically signed by: Tremaine Biswas MD (07/21/2019 7:00 PM) [id number] DICTATED AND SIGNED BY: TREMAINE BISWAS MD DATE: 07/21/19 190 CC: KENDRA DIAMOND MD; BEVERLY YU MD; ANDRÉS HERNANDEZ MD ~ [place] [address] IMAGING REPORT Signed PATIENT: BOBBI EASTMAN: [id number] : 1940 LOCATION: ER AGE: 79 SEX: F EXAM STATUS: REG ER ORD. PHYSICIAN: BEVERLY YU MD REASON: right flank pain, eval for nephrolithiasis. PROCEDURE: CT ABDOMEN PELVIS WO CONTRAST CT ABDOMEN PELVIS WO CONTRAST Indication: Right flank pain. Exposure: One or more of the following individualized dose reduction techniques were utilized for this examination: 1. Automated exposure control 2. Adjustment of the mA and/or kV according to patient size 3. Use of iterative reconstruction technique. Comparison: None are available. Technique: No intravenous contrast given. No oral contrast per request. Findings: Evaluation of solid viscera, bowel and vasculature is compromised by the noncontrast technique. Mild linear opacities in both lung bases most likely atelectasis versus mild infiltrate. Liver, spleen and pancreas appear grossly unremarkable. No evidence of adrenal mass. No evidence of urolithiasis. No evidence of hydronephroureter. No perinephric stranding. Very subtle tiny density at the gallbladder neck or cystic duct, possibly a small calculus but considered unlikely. No gallbladder distention. Aorta is calcified, no evidence of aneurysm. No significant lymph node enlargement. No significant small bowel distention. Colonic diverticulosis without evidence of acute colitis. The appendix is not visualized. No evidence of pneumoperitoneum or significant ascites. Degenerative spondylosis particularly at the lumbosacral junction where there is minimal anterolisthesis of L5 on S1. Vertebral body height and alignment are intact. No aggressive bone destruction. IMPRESSION: 1. No evidence of urinary tract calculus or obstruction. 2. Mild atelectasis or infiltrate in lung bases. 3. Question tiny calculus in the gallbladder neck or cystic duct. No gallbladder distention, however. 4. Colonic diverticulosis without evidence of acute colitis. Electronically signed by: Tremaine Biswas MD (07/21/2019 5:07 PM) [id number] DICTATED AND SIGNED BY: TREMAINE BISWAS MD DATE: 07/21/19 6148 CC: KENDRA DIAMOND MD; BEVERLY YU MD; ANDRÉS HERNANDEZ MD ~ [place] [address] IMAGING REPORT Signed PATIENT: BOBBI EASTMAN JACCOUNT: [id number] : 1940 LOCATION: ER AGE: 79 SEX: F EXAM STATUS: REG ER ORD. PHYSICIAN: BEVERLY YU MD REASON: right flank pain, eval for nephrolithiasis. PROCEDURE: CT ABDOMEN PELVIS WO CONTRAST CT ABDOMEN PELVIS WO CONTRAST Indication: Right flank pain. Exposure: One or more of the following individualized dose reduction techniques were utilized for this examination: 1. Automated exposure control 2. Adjustment of the mA and/or kV according to patient size 3. Use of iterative reconstruction technique. Comparison: None are available. Technique: No intravenous contrast given. No oral contrast per request. Findings: Evaluation of solid viscera, bowel and vasculature is compromised by the noncontrast technique. Mild linear opacities in both lung bases most likely atelectasis versus mild infiltrate. Liver, spleen and pancreas appear grossly unremarkable. No evidence of adrenal mass. No evidence of urolithiasis. No evidence of hydronephroureter. No perinephric stranding. Very subtle tiny density at the gallbladder neck or cystic duct, possibly a small calculus but considered unlikely. No gallbladder distention. Aorta is calcified, no evidence of aneurysm. No significant lymph node enlargement. No significant small bowel distention. Colonic diverticulosis without evidence of acute colitis. The appendix is not visualized. No evidence of pneumoperitoneum or significant ascites. Degenerative spondylosis particularly at the lumbosacral junction where there is minimal anterolisthesis of L5 on S1. Vertebral body height and alignment are intact. No aggressive bone destruction. IMPRESSION: 1. No evidence of urinary tract calculus or obstruction. 2. Mild atelectasis or infiltrate in lung bases. 3. Question tiny calculus in the gallbladder neck or cystic duct. No gallbladder distention, however. 4. Colonic diverticulosis without evidence of acute colitis. Electronically signed by: Tremaine Biswas MD (07/21/2019 5:07 PM) [id number] DICTATED AND SIGNED BY: TREMAINE BISWAS MD DATE: 07/21/19 6994 CC: KENDRA DIAMOND MD; BEVERLY YU MD; ANDRÉS HERNANDEZ MD ~ [place] [address] IMAGING REPORT Signed PATIENT: BOBBI EASTMAN JACCOUNT: [id number] : 1940 LOCATION: ER AGE: 79 SEX: F EXAM STATUS: REG ER ORD. PHYSICIAN: BEVERLY YU MD REASON: right flank pain, eval for nephrolithiasis. PROCEDURE: CT ABDOMEN PELVIS WO CONTRAST CT ABDOMEN PELVIS WO CONTRAST Indication: Right flank pain. Exposure: One or more of the following individualized dose reduction techniques were utilized for this examination: 1. Automated exposure control 2. Adjustment of the mA and/or kV according to patient size 3. Use of iterative reconstruction technique. Comparison: None are available. Technique: No intravenous contrast given. No oral contrast per request. Findings: Evaluation of solid viscera, bowel and vasculature is compromised by the noncontrast technique. Mild linear opacities in both lung bases most likely atelectasis versus mild infiltrate. Liver, spleen and pancreas appear grossly unremarkable. No evidence of adrenal mass. No evidence of urolithiasis. No evidence of hydronephroureter. No perinephric stranding. Very subtle tiny density at the gallbladder neck or cystic duct, possibly a small calculus but considered unlikely. No gallbladder distention. Aorta is calcified, no evidence of aneurysm. No significant lymph node enlargement. No significant small bowel distention. Colonic diverticulosis without evidence of acute colitis. The appendix is not visualized. No evidence of pneumoperitoneum or significant ascites. Degenerative spondylosis particularly at the lumbosacral junction where there is minimal anterolisthesis of L5 on S1. Vertebral body height and alignment are intact. No aggressive bone destruction. IMPRESSION: 1. No evidence of urinary tract calculus or obstruction. 2. Mild atelectasis or infiltrate in lung bases. 3. Question tiny calculus in the gallbladder neck or cystic duct. No gallbladder distention, however. 4. Colonic diverticulosis without evidence of acute colitis. Electronically signed by: Tremaine Biswas MD (07/21/2019 5:07 PM) [id number] DICTATED AND SIGNED BY: TREMAINE BISWAS MD DATE: 07/21/19 9727 CC: KENDRA DIAMOND MD; BEVERLY YU MD; ANDRÉS HERNANDEZ MD ~ (KENDRA DIAMOND MD) Course & Med Decision Making Course & Med Decision Making Pertinent Labs and Imaging studies reviewed. (See chart for details) []80 yo f hx of gerd htn hld heart disease s/p appy p/w right posterior back pain radiation to groin and mid right abdomen, burning perhaps it is neuropathic type pain abdomen mildly tender in the right upper quadrant on reexamination urine neg labs look stable ct scan neg for nephrolithiasis, May be shows a tiny cut was at the gallbladder Did order a right upper quadrant ultrasound Care signed out to Dr. Diamond at 6 PM (BEVERLY YU MD) Course & Med Decision Making Pt. to remain on a clear fluid diet for the next 2 days. No solids no milk products. Must allow bowel rest. Must have reexam if no improvement. Follow up with primary care. Return if any concerns. 1. Abdomen pain 2. Flank pain 3. Mild elevation in BUN 32 and creatinine 1.5 4. No surgical pathology noted at this time. (KENDRA DIAMOND MD) Dragon Disclaimer Dragon Disclaimer This electronic medical record was generated, in whole or in part, using a voice recognition dictation system. (BEVERLY YU MD) Departure Departure: Impression: Primary Impression: Back pain Disposition: HOME/RESIDENCE PRIOR TO ADM Condition: STABLE Referrals: ANDRÉS HERNANDEZ MD (PCP) Scripts Magnesium Hydroxide (MILK OF MAGNESIA) 2,400 Mg/10 Ml Oral.susp 2400 MG PO DAILY for if constipation, #30 LIQUID Prov: KENDRA DIAMOND MD 07/21/19 Hydrocodone/Ibuprofen (HYDROCODONE-IBUPROFEN 7.5-200 ) 1 Each Tablet 1 TAB PO PRN Q6HRS PRN for PAIN for 30 Days, TAB 0 Refills Prov: KENDRA DIAMOND MD 07/21/19 Dragon Disclaimer This chart was dictated in whole or in part using Voice Recognition software in a busy, high-work load, and often noisy Emergency Department environment. It may contain unintended and wholly unrecognized errors or omissions. (KENDRA DIAMOND MD) Dragon Disclaimer This chart was dictated in whole or in part using Voice Recognition software in a busy, high-work load, and often noisy Emergency Department environment. It may contain unintended and wholly unrecognized errors or omissions. (BEVERLY YU MD) BEVERLY YU MD Jul 21, 2019 17:18 KENDRA DIAMOND MD Jul 21, 2019 20:00
[2019-07-21 19:16] VITALS: BP 149/64
[2019-07-21] MEDS ORDERED: MAGN2400 PO (19:23)
[2019-07-21] MEDS ORDERED: HYDR-1179 PO (19:23)
--- NOTE | 2019-07-21 19:31 | EKG ---
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
--- NOTE | 2019-07-21 19:31 | RAD ---
Limited abdominal ultrasound HISTORY: Right upper quadrant pain. FINDINGS: Exam is technically difficult due to obesity. Pancreas poorly visualized. No evidence of gallstone or gallbladder wall thickening. Common bile duct poorly seen. Liver is enlarged, 19.5 cm, with coarse echogenicity suggesting steatosis. This otherwise limited penetration of the liver reduces sensitivity for liver lesion. Right kidney measures 9.5 cm longitudinal without evidence of hydronephrosis. There is renal cortical thinning. Aorta is poorly seen. Inferior vena cava is barely visualized. IMPRESSION: 1. No evidence of cholelithiasis. 2. Hepatomegaly with steatosis. 3. Apparent thinning or atrophy of the renal cortex. 4. Limited exam due to patient body habitus. Electronically signed by: Tremaine Biswas MD (07/21/2019 7:00 PM) [id number]
--- NOTE | 2019-07-21 19:31 | RAD ---
CT ABDOMEN PELVIS WO CONTRAST Indication: Right flank pain. Exposure: One or more of the following individualized dose reduction techniques were utilized for this examination: 1. Automated exposure control 2. Adjustment of the mA and/or kV according to patient size 3. Use of iterative reconstruction technique. Comparison: None are available. Technique: No intravenous contrast given. No oral contrast per request. Findings: Evaluation of solid viscera, bowel and vasculature is compromised by the noncontrast technique. Mild linear opacities in both lung bases most likely atelectasis versus mild infiltrate. Liver, spleen and pancreas appear grossly unremarkable. No evidence of adrenal mass. No evidence of urolithiasis. No evidence of hydronephroureter. No perinephric stranding. Very subtle tiny density at the gallbladder neck or cystic duct, possibly a small calculus but considered unlikely. No gallbladder distention. Aorta is calcified, no evidence of aneurysm. No significant lymph node enlargement. No significant small bowel distention. Colonic diverticulosis without evidence of acute colitis. The appendix is not visualized. No evidence of pneumoperitoneum or significant ascites. Degenerative spondylosis particularly at the lumbosacral junction where there is minimal anterolisthesis of L5 on S1. Vertebral body height and alignment are intact. No aggressive bone destruction. IMPRESSION: 1. No evidence of urinary tract calculus or obstruction. 2. Mild atelectasis or infiltrate in lung bases. 3. Question tiny calculus in the gallbladder neck or cystic duct. No gallbladder distention, however. 4. Colonic diverticulosis without evidence of acute colitis. Electronically signed by: Tremaine Biswas MD (07/21/2019 5:07 PM) [facility]
== END 2019-07-21 19:33 | disposition home or self-care (01) ==
LOC: ER 14:06
DX: R10.9 Unspecified abdominal pain (principal); M54.89 Other dorsalgia; R79.89 Other specified abnormal findings of blood chemistry; J44.9 Chronic obstructive pulmonary disease, unspecified; K21.9 Gastro-esophageal reflux disease without esophagitis; E78.00 Pure hypercholesterolemia, unspecified; I11.9 Hypertensive heart disease without heart failure; Z88.1 Allergy status to other antibiotic agents; Z91.040 Latex allergy status; Z88.8 Allergy status to other drugs, medicaments and biological substances
CPT/HCPCS: 36415; 74176; 76705; 80053; 81001; 83690; 84484; 85025; 93005; 96374; 99285; J3010

== ENCOUNTER 2020-08-13 14:52 | Inpatient (IN) | payer MEDICARE ==
[~2020-08-13] VITALS: Ht 162.6 cm; Wt 107.5 kg
[~2020-08-13 14:52] MED LIST changes: -GLIM1TAB2 PO; +GLIM1TAB7 PO; +HYDR-1179 PO; +MAGN24003 PO; +MULT-445 PO; -MULT1TAB52 PO
--- NOTE | 2020-08-13 15:47 | RAD ---
EXAM: PORTABLE CHEST 1V INDICATION: Reason: soa / Spl. Instructions: / History: . TECHNIQUE: Single view COMPARISON: 03/14/2019 chest x-ray FINDINGS: The heart size is normal. The great vessels appear unremarkable. There is no hilar or mediastinal mass. The lungs are hypoventilatory but show no focal infiltrates.. There is no pleural effusion or pneumothorax. There are no significant osseous abnormalities. IMPRESSION: Hypoventilatory chest showing no active cardiopulmonary disease. Electronically signed by: Mariella Fowler MD (08/13/2020 3:44 PM) [id number]
--- NOTE | 2020-08-13 15:58 | EKG ---
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
[2020-08-13 16:11] LABS: BASO # 0.1 x10^3/uL (0.0-0.2); BASO % 1 % (0-3); EOS # 0.3 x10^3/uL (0.0-0.7); EOS % 5 % (0-3); HEMATOCRIT 34.9 % (36.0-47.0); HEMOGLOBIN 11.2 g/dL (12.0-15.5); LYMPH # 0.9 x10^3/uL (1.0-4.8); LYMPH % 13 % (24-48); MEAN CORPUSCULAR HEMOGLOBIN 32 pg (25-35); MEAN CORPUSCULAR HGB CONC 32 g/dL (31-37); MEAN CORPUSCULAR VOLUME 99 fL (79-100); MONO # 0.6 x10^3/uL (0.0-1.1); MONO % 9 % (0-9); NEUT % 73 % (31-73); PLATELET COUNT 184 x10^3/uL (140-400); RED BLOOD COUNT 3.52 x10^6/uL (3.50-5.40); RED CELL DISTRIBUTION WIDTH 16.3 % (11.5-14.5); WHITE BLOOD COUNT 6.8 x10^3/uL (4.0-11.0)
[2020-08-13 16:20] LABS: CALCIUM 9.4 mg/dL (8.5-10.1); CREATININE 2.3 mg/dL (0.6-1.0); GFR 20.4; POTASSIUM 4.7 mmol/L (3.5-5.1)
[2020-08-13 16:32] LABS: ALBUMIN 3.4 g/dL (3.4-5.0); ALBUMIN/GLOBULIN RATIO 0.9 (1.0-1.7); TOTAL BILIRUBIN 0.3 mg/dL (0.2-1.0); TOTAL PROTEIN 7.4 g/dL (6.4-8.2)
--- NOTE | 2020-08-13 17:05 | PHYS DOC ---
Past History Past Medical History: COPD, Depression, GERD, High Cholesterol, Heart Disease, Hypertension, Pneumonia, Other Additional Past Medical Histor: RLS, HYPERGLYCEMIA, NEUROPATHY Past Surgical History: Appendectomy, Knee Replacement, Tonsillectomy Alcohol Use: None Drug Use: None General Adult EDM: Chief Complaint: SHORTNESS OF BREATH HPI: HPI: 80-year-old female past medical history significant for COPD and JOSEPH, on BiPAP at night and 3 to 4 L nasal cannula at baseline, diabetes, hypertension, heart failure with reduced EF, presents to the ED with complaints of difficulties breathing, fatigue and productive cough, reports walking exacerbates her symptoms. No history of DVT or PE. Reports last steroid use was over a year ago. No history of intubations due to COPD. States she had a blood transfusion in 2017 due to possible source of GI bleeding with cauterization nation during colonoscopy. Patient reports worsening lower extremity swelling and saw her primary care physician a week and a half ago and doubled her Lasix dose for 3 days. Complains of 10 pound weight gain prior to this. Is currently on her normal dose of 40 mg twice daily. Reports history of congestive heart failure 1 year ago with cardiac echo and admission. Review of Systems: Review of Systems: Constitutional: Denies fever or chills Eyes: Denies change in visual acuity HENT: Denies nasal congestion or sore throat Respiratory: Denies cough or shortness of breath Cardiovascular: Denies chest pain or edema GI: Denies abdominal pain, nausea, vomiting, bloody stools or diarrhea : Denies dysuria Musculoskeletal: Denies back pain or joint pain Integument: Denies rash Neurologic: Denies headache, focal weakness or sensory changes Endocrine: Denies polyuria or polydipsia Lymphatic: Denies swollen glands Psychiatric: Denies depression or anxiety Heart Score: Risk Factors: Risk Factors: DM, Current or recent (<one month) smoker, HTN, HLP, family history of CAD, obesity. Risk Scores: Score 0 - 3: 2.5% MACE over next 6 weeks - Discharge Home Score 4 - 6: 20.3% MACE over next 6 weeks - Admit for Clinical Observation Score 7 - 10: 72.7% MACE over next 6 weeks - Early Invasive Strategies Allergies: Allergies: Allergies Coded Allergies Type Severity Reaction Last Updated Verified amoxicillin Allergy Intermediate 08/13/20 Yes clavulanic acid Allergy Intermediate 9/29/20 Yes simvastatin Allergy Intermediate 08/13/20 Yes adhesive tape Allergy Unknown 08/13/20 Yes latex Allergy Unknown 08/13/20 Yes Physical Exam: PE: Constitutional: Well developed, well nourished, no acute distress, non-toxic appearance. [] HENT: Normocephalic, atraumatic, bilateral external ears normal, oropharynx mois t, no oral exudates, nose normal. [] Eyes: PERRLA, EOMI, conjunctiva normal, no discharge. [] Neck: Normal range of motion, no tenderness, supple, no stridor. [] Cardiovascular:Heart rate regular rhythm, no murmur [] Lungs & Thorax: Bilateral breath sounds clear to auscultation [] Abdomen: Bowel sounds normal, soft, no tenderness, no masses, no pulsatile masses. [] Skin: Warm, dry, no erythema, no rash. [] Back: No tenderness, no CVA tenderness. [] Extremities: No tenderness, no cyanosis, no clubbing, ROM intact, no edema. [] Neurologic: Alert and oriented X 3, normal motor function, normal sensory function, no focal deficits noted. [] Psychologic: Affect normal, judgement normal, mood normal. [] Current Patient Data: Labs: Laboratory Tests Test 08/13/20 15:45 White Blood Count 6.8 x10^3/uL (4.0-11.0) Red Blood Count 3.52 x10^6/uL (3.50-5.40) Hemoglobin 11.2 g/dL (12.0-15.5) L Hematocrit 34.9 % (36.0-47.0) L Mean Corpuscular Volume 99 fL (79-100) Mean Corpuscular Hemoglobin 32 pg (25-35) Mean Corpuscular Hemoglobin Concent 32 g/dL (31-37) Red Cell Distribution Width 16.3 % (11.5-14.5) H Platelet Count 184 x10^3/uL (140-400) Neutrophils (%) (Auto) 73 % (31-73) Lymphocytes (%) (Auto) 13 % (24-48) L Monocytes (%) (Auto) 9 % (0-9) Eosinophils (%) (Auto) 5 % (0-3) H Basophils (%) (Auto) 1 % (0-3) Neutrophils # (Auto) 5.0 x10^3uL (1.8-7.7) Lymphocytes # (Auto) 0.9 x10^3/uL (1.0-4.8) L Monocytes # (Auto) 0.6 x10^3/uL (0.0-1.1) Eosinophils # (Auto) 0.3 x10^3/uL (0.0-0.7) Basophils # (Auto) 0.1 x10^3/uL (0.0-0.2) Sodium Level 137 mmol/L (136-145) Potassium Level 4.7 mmol/L (3.5-5.1) Chloride Level 100 mmol/L (98-107) Carbon Dioxide Level 31 mmol/L (21-32) Anion Gap 6 (6-14) Blood Urea Nitrogen 44 mg/dL (7-20) H Creatinine 2.3 mg/dL (0.6-1.0) H Estimated GFR (Cockcroft-Gault) 20.4 BUN/Creatinine Ratio 19 (6-20) Glucose Level 127 mg/dL (70-99) H Calcium Level 9.4 mg/dL (8.5-10.1) Total Bilirubin 0.3 mg/dL (0.2-1.0) Aspartate Amino Transferase (AST) 21 U/L (15-37) Alanine Aminotransferase (ALT) 26 U/L (14-59) Alkaline Phosphatase 86 U/L (46-116) Creatine Kinase 95 U/L (26-192) Troponin I Quantitative < 0.017 ng/mL (0-0.055) AA-Afi-Z-Type Natriuretic Peptide 468 pg/mL (0-449) H Total Protein 7.4 g/dL (6.4-8.2) Albumin 3.4 g/dL (3.4-5.0) Albumin/Globulin Ratio 0.9 (1.0-1.7) L Vital Signs: Vital Signs Date Time Temp Pulse Resp B/P (MAP) Pulse Ox O2 Delivery O2 Flow Rate FiO2 08/13/20 15:07 97.8 71 18 145/73 (97) 98 Nasal Cannula 3.5 EKG: EKG: [] Sinus rhythm at 64 bpm, no axis deviation, prolonged MT at 220, no T wave inversions, no ST elevations or ST depressions Radiology/Procedures: Radiology/Procedures: [] Course & Med Decision Making: Course & Med Decision Making Pertinent Labs and Imaging studies reviewed. (See chart for details) Concern for dyspnea in the setting of copd and pui for covid19. Labs with acute on chronic kidney disease with lower extremity edema and dyspnea-possible congestive heart failure but no pleural effusions, BNP 468. SIRS negative. Patient requests COVID test. Is currently taking Lasix 40 mg twice daily-likely source of worsening renal function. Treated with steroids and albuterol mdi in ED. Will admit for further medical management, consider echocardiogram and cardiology consultation. Patient stable at time of admission and agrees with t his plan. Accepted by Dr. Hernandez. I have spoken with the patient and/or caregivers. I have explained the patient's condition, diagnosis and treatment plan based on the information available to me at this time. I have answered the patient's and/or caregivers questions and answered any concerns. The patient and/or caregivers have as good an understanding of the patient's diagnosis, condition and treatment plan as can be expected at this point. The patient has been stabilized within the capability of the emergency department. The patient will be transported for further care and management or will be moved to an observation or inpatient service. I have communicated with the staff or medical practitioner taking over this patient's care. Judith Disclaimer: Judith Disclaimer: This electronic medical record was generated, in whole or in part, using a voice recognition dictation system. Departure Departure: Impression: Primary Impression: Acute dyspnea Additional Impressions: NOE (acute kidney injury) COPD (chronic obstructive pulmonary disease) Person under investigation for COVID-19 Disposition: ADMITTED INPATIENT Admitting Physician: Jace Hernandez Condition: STABLE Referrals: JACE HERNANDEZ MD (PCP) Justification of Admission: Justification of Admission: Justification of Admission Dx: Yes SHRUTHI HARMAN DO Aug 13, 2020 17:05
[2020-08-13] MEDS ORDERED: IPRATRPIUM/ALBUTEROL 0.5/2.5MG 3 ML NEBU. NEB ONE (18:45)
[2020-08-13] MEDS ORDERED: DEXAMETHASONE SOD PHOS 10 MG/ML VIAL. IV ONE (18:45)
[2020-08-13 18:47] LABS: BACTERIA,URINE 0 /HPF (0-FEW); BILIRUBIN,URINE NEG (NEG); CLARITY,URINE CLEAR; COLOR,URINE YELLOW; GLUCOSE,URINE NEG (NEG); NITRITE,URINE NEG (NEG); RBC,URINE 0 /HPF (0-2); UROBILINOGEN,URINE 0.2 mg/dL (0.2 mg/dL); WBC,URINE 0 /HPF (0-4)
[2020-08-13] MEDS ORDERED: ALBUTEROL SULFATE 8GM INHALER. INH ONE (19:30)
[2020-08-13 22:42] VITALS: BP 139/84
--- NOTE | 2020-08-14 01:15 | NUR ---
Pt was admitted to [facility] via EMS accompanied by ER nurse. Pt ambulated self from gurney to bed w/o help. Pt was sitting at bedside during admission. Pt appeared to be SOA after walking her self to bathroom during assessment. Pt is currently on 3.5L of O2 and tolerating well when resting. Pt states she uses O2 at home as well. Pt had no complaints of pain on admission. POC was discussed w/ verbalization from pt. of understanding. Pt. orientated to . Call light in reach will continue to monitor.
[2020-08-14] MEDS ORDERED: TRIA1TAB3 PO (01:41)
[2020-08-14] MEDS ORDERED: FURO-68 PO (01:41)
[2020-08-14] MEDS ORDERED: ACET500T68 PO (01:41)
[2020-08-14] MEDS ORDERED: ALLO100T PO (01:41)
[2020-08-14] MEDS ORDERED: METO2.5T PO (01:41)
[2020-08-14] MEDS ORDERED: THIA100T57 PO (01:41)
[2020-08-14] MEDS ORDERED: ACETAMINOPHEN 500 MG TABLET PO PRN (02:15)
[2020-08-14 05:22] VITALS: BP 135/61
--- NOTE | 2020-08-14 05:32 | NUR ---
Patient is COVID pending and should be MDI. An albuterol inhaler was dispensed and came up with patient.
[2020-08-14] MEDS: LEVOTHYROXINE 150 MCG TABLET PO SCH (05:53)
[2020-08-14] MEDS ORDERED: IPRATRPIUM/ALBUTEROL 0.5/2.5MG 3 ML NEBU. NEB SCH (08:00)
[2020-08-14] MEDS: CITALOPRAM 10 MG TABLET. PO SCH (08:14)
[2020-08-14] MEDS: PANTOPRAZOLE 40 MG TABLET. PO SCH (08:15)
[2020-08-14] MEDS: ASPIRIN CHEWABLE 81 MG TABLET. PO SCH (08:15)
[2020-08-14] MEDS: POTASSIUM CHLORIDE 20 MEQ TABLET.ER. PO SCH ×4 (08:15→20:33)
[2020-08-14] MEDS: PYRIDOXINE 50 MG TABLET. PO SCH (08:15)
[2020-08-14] MEDS: DOCUSATE SODIUM 100 MG CAPSULE PO SCH (08:15)
[2020-08-14] MEDS: GLIMEPIRIDE 2 MG TABLET PO SCH (08:16)
[2020-08-14] MEDS: MULTIVITAMIN with MINERAL TABLET. PO SCH (08:16)
[2020-08-14] MEDS: THIAMINE 100 MG TABLET. PO SCH (08:16)
[2020-08-14] MEDS: ALLOPURINOL 100 MG TABLET. PO SCH (08:16)
[2020-08-14] MEDS: CHOLECALCIFEROL (VITAMIN D3) 1,000 UNIT TABLET PO SCH (08:17)
[2020-08-14] MEDS: FERROUS SULFATE 325 MG TABLET. PO SCH (08:17)
[2020-08-14] MEDS: ATENOLOL 25 MG TABLET PO SCH (08:17)
[2020-08-14] MEDS: DEXAMETHASONE SOD PHOS 4 MG/ML VIAL. IVP SCH (08:18)
--- NOTE | 2020-08-14 08:33 | NUR ---
IP: patient pUI for COVID-19, requires contact and airborne precautions.
[2020-08-14] MEDS: HYDROcodon/IBUPROFEN 7.5/200MG 1 TAB TABLET PO PRN ×2 (08:42→20:33)
[2020-08-14] MEDS ORDERED: metOLazone 2.5 MG TABLET PO SCH (09:00)
[2020-08-14] MEDS ORDERED: FLU VACC QS 2020-21(6MOS+)/PF 0.5 ML SYRINGE. VAX IM ONE (09:00)
[2020-08-14] MEDS ORDERED: TRIAMTERENE/HCTZ 37.5/25MG TABLET. PO SCH (09:00)
[2020-08-14] MEDS ORDERED: NON FORMULARY ITEM (Magnesium Hydroxide (Milk Of Magnesia) 2,400 MG) PO SCH (09:00)
[2020-08-14 11:11] VITALS: BP 139/53
[2020-08-14] MEDS: IPRATROPIUM/ALBUTEROL 20/100mcg/INH INHALER. INH SCH ×3 (11:42→20:00)
--- NOTE | 2020-08-14 13:20 | HP ---
ADMIT DATE: ATTENDING PHYSICIAN: Dr. Guallpa. CHIEF COMPLAINT: Shortness of breath. HISTORY OF PRESENT ILLNESS: The patient is an 80-year-old female who was in assisted living at the [facility]. She presents with a 2-day history of increasing shortness of breath. She has COPD, obstructive sleep apnea, on BiPAP at night. She also has heart failure with decreased ejection fraction. Her weight is up 15-20 pounds over the last several weeks. She is drinking a lot of fluids. Chest x-ray demonstrated vascular congestion and cardiomegaly. She was admitted then with acute on chronic congestive heart failure, most likely systolic. There is no COVID exposure. She had been swabbed. She has had lower extremity swelling. Lasix dose was doubled for 3 days. Weight gain is recent. PAST MEDICAL HISTORY: Significant for COPD, depression, gastroesophageal reflux disease, hyperlipidemia, heart disease, hypertension and pneumonia in the past. She is also diabetic with morbid obesity. PAST SURGICAL HISTORY: Appendectomy, knee replacement and tonsillectomy. ALLERGIES: Include ADHESIVE TAPE, AMOXICILLIN, CLAVULANIC ACID and LATEX. Exact reactions unclear. CURRENT MEDICATIONS: Reviewed. She takes Tylenol, albuterol, allopurinol, aspirin, atenolol, Lipitor, Celexa, dexamethasone, iron, Neurontin, hydrocodone, magnesium, metolazone, multivitamin, potassium, pyridoxine, Requip, thiamine, triamterene, vitamin D. FAMILY HISTORY: Mom lived to age 92, of old age. Father was killed in a car accident in his mid 20. She never knew him. She is retired, lives in assisted living. SOCIAL HISTORY: She smoked up until 17 years ago. No alcohol use. REVIEW OF SYSTEMS: She has restless leg syndrome. She is increasing her fluid intake. No nausea, vomiting or palpitation. There is no COVID exposure. All other systems reviewed and turned to be negative. PHYSICAL EXAMINATION: GENERAL: When I saw her, this is an alert, pleasant female. INITIAL VITAL SIGNS: Showed a blood pressure of 135/61 mmHg, oxygen saturation 90% on 3 liters nasal cannula. She was afebrile, pulse is 76 and regular. HEENT: Head is without trauma. Pupils are reactive. Sclerae nonicteric. Oropharynx is clear. NECK: Supple, no bruits. LUNGS: Diminished breath sounds at bases. CARDIOVASCULAR: Showed regular heart tones. No gallops. ABDOMEN: Soft, obese, protuberant. No organomegaly. EXTREMITIES: Showed 3+ pitting edema extending up to her thighs. NEUROLOGIC: Focally intact. SKIN: Warm and dry. Speech is fluent. PERTINENT LABORATORY STUDIES: Hemoglobin is 11.2 g/dL, white count 6800. Chemistry panel showed a creatinine of 2.3 mg/dL, BUN 44. Nonfasting blood sugar 127. Cardiac enzymes negative for coronary ischemia. Transaminases normal. BNP was 468. ASSESSMENT: 1. An 80-year-old female with exacerbation of congestive heart failure. She has acute on chronic congestive heart failure systolic. 2. Morbid obesity. 3. Obstructive sleep apnea. 4. Chronic kidney disease stage III. 5. Restless leg syndrome. 6. Hypertension. 7. Type 2 diabetes. 8. Obstructive sleep apnea. PLAN: 1. Admit to the inpatient unit. 2. Intravenous diuretics, Lasix twice a day. 3. Serial chemistries. 4. Potassium supplementation. 5. Continue some home meds. 6. Daily weights. 7. Fluid restriction. The patient is a DNR per advanced directive. We will respect her wishes. Her prognosis is fair. VIELKA GUALLPA MD DR: DAVID/shari JOB#: [id number] / [id number] Rosalio Arias MD
[2020-08-14] MEDS: GABAPENTIN 300 MG CAPSULE. PO SCH ×2 (14:40→20:32)
[2020-08-14 15:02] VITALS: BP 138/53
[2020-08-14 19:58] VITALS: BP 119/50
[2020-08-14] MEDS: rOPINIRole 1 MG TABLET. PO SCH (20:32)
[2020-08-14] MEDS: ATORVASTATIN CALCIUM 20 MG TABLET PO SCH (20:32)
[2020-08-14] MEDS: MAGNESIUM OXIDE 400 MG TABLET PO SCH (20:32)
[2020-08-14] MEDS ORDERED: GABAPENTIN 300 MG CAPSULE. PO SCH (21:00)
[2020-08-14] MEDS ORDERED: FUROSEMIDE 80 MG TABLET PO SCH (21:00)
[2020-08-14 22:22] VITALS: BP 103/51
[2020-08-15 05:31] VITALS: BP 120/46
[2020-08-15] MEDS: LEVOTHYROXINE 150 MCG TABLET PO SCH (05:36)
[2020-08-15 06:26] LABS: CALCIUM 9.7 mg/dL (8.5-10.1); CREATININE 1.9 mg/dL (0.6-1.0); GFR 25.4; POTASSIUM 4.9 mmol/L (3.5-5.1)
[2020-08-15] MEDS: POTASSIUM CHLORIDE 20 MEQ TABLET.ER. PO SCH ×3 (09:00→20:13)
[2020-08-15] MEDS ORDERED: MAGNESIUM CITRATE 296 ML SOLUTION. PO PRN (09:30)
--- NOTE | 2020-08-15 09:41 | PN ---
DATE: 08/15/2020 ATTENDING PHYSICIAN: Dr. Guallpa. CHIEF COMPLAINT: Shortness of breath. SUBJECTIVE: The patient is breathing better. She is diuresing well. She has minor complaints of constipation. OBJECTIVE FINDINGS: VITAL SIGNS: Blood pressure today is 120/46, pulse 68 and regular, temperature 97.7 degrees Fahrenheit, and oxygen saturation 94% on her standard 3 liters of oxygen per nasal cannula. HEENT: Head is without trauma. Pupils are reactive. Sclerae nonicteric. Oropharynx clear. NECK: Supple. LUNGS: Good breath sounds. CARDIOVASCULAR: Showed distant heart tones. No gallops. Peripheral pulses are palpable and full. ABDOMEN: Obese, protuberant. No organomegaly. Normoactive bowel sounds. EXTREMITIES: Showed improvement of her pedal edema. There is no cyanosis. NEUROLOGIC: Focally intact. No deficits. Speech is fluent. SKIN: Warm and dry. PERTINENT LABORATORY DATA: With the diuresis, her creatinine is paradoxically improved and down to 1.9 mg/dL due to better perfusion. Nonfasting blood sugar 118, potassium 4.9 mEq. Hemoglobin maintained at 11.2 g/dL. ASSESSMENT: 1. An 80-year-old female with exacerbation of acute on chronic congestive heart failure, systolic. 2. Morbid obesity. 3. Obstructive sleep apnea. 4. Chronic kidney disease stage 3, improved with diuresis. 5. Restless leg syndrome. 6. Essential hypertension, currently normotensive. 7. Type 2 diabetes with controlled blood sugar. 8. Chronic oxygen use at home. PLAN: 1. Continue diuresis. We will make the second dose at 1500, so she is not up all night urinating. 2. Serial chemistries. 3. Add MiraLax. 4. P.r.n. magnesium citrate. 5. Tentative discharge plans for tomorrow. 6. Long discussion regarding daily weights and fluid restriction. VIELKA GUALLPA MD DR: DAVID/shari JOB#: [id number] / [id number]
[2020-08-15] MEDS: IPRATROPIUM/ALBUTEROL 20/100mcg/INH INHALER. INH SCH ×4 (10:04→20:00)
[2020-08-15] MEDS: ALLOPURINOL 100 MG TABLET. PO SCH (10:05)
[2020-08-15] MEDS: PANTOPRAZOLE 40 MG TABLET. PO SCH (10:05)
[2020-08-15] MEDS: ASPIRIN CHEWABLE 81 MG TABLET. PO SCH (10:05)
[2020-08-15] MEDS: ATENOLOL 25 MG TABLET PO SCH (10:05)
[2020-08-15] MEDS: GABAPENTIN 300 MG CAPSULE. PO SCH ×3 (10:05→20:14)
[2020-08-15] MEDS: GLIMEPIRIDE 2 MG TABLET PO SCH (10:06)
[2020-08-15] MEDS: CHOLECALCIFEROL (VITAMIN D3) 1,000 UNIT TABLET PO SCH (10:06)
[2020-08-15] MEDS: CITALOPRAM 10 MG TABLET. PO SCH (10:06)
[2020-08-15] MEDS: DOCUSATE SODIUM 100 MG CAPSULE PO SCH (10:06)
[2020-08-15] MEDS: THIAMINE 100 MG TABLET. PO SCH (10:07)
[2020-08-15] MEDS: FUROSEMIDE 80 MG TABLET PO SCH ×3 (10:07→14:21)
[2020-08-15] MEDS: PYRIDOXINE 50 MG TABLET. PO SCH (10:07)
[2020-08-15] MEDS: MULTIVITAMIN with MINERAL TABLET. PO SCH (10:07)
[2020-08-15] MEDS: FERROUS SULFATE 325 MG TABLET. PO SCH (10:07)
[2020-08-15] MEDS: DEXAMETHASONE SOD PHOS 4 MG/ML VIAL. IVP SCH (10:08)
[2020-08-15] MEDS ORDERED: POLYETHYLENE GLYCOL 3350 17 GM PACKET. PO SCH (10:30)
[2020-08-15 10:40] VITALS: BP 147/66
[2020-08-15 14:30] VITALS: BP 149/68
--- NOTE | 2020-08-15 15:33 | NUR ---
NSG NOTE; NO SOA NOTED TODAY PT UP IN HER ROOM WITH HER O2 NC AT 3.5L WHICH IS HER BASELINE AT HOME. SHE IS IN A SMALL ROOM, WITH FEW STEPS TO THE BR, SHE HAS NOT BEEN SOA WHEN UP. NO COUGH OR FEVER NOTED. LASIX 80 MG PO CHANGED TO 0900 & 1400, FROM 0900 & 2100, PER DR GUALLPA'S ORDERS TO PREVENT NOCTURIA.
[2020-08-15 19:48] VITALS: BP 124/53
[2020-08-15] MEDS: rOPINIRole 1 MG TABLET. PO SCH (20:12)
[2020-08-15] MEDS: ATORVASTATIN CALCIUM 20 MG TABLET PO SCH (20:13)
[2020-08-15] MEDS: MAGNESIUM OXIDE 400 MG TABLET PO SCH (20:14)
[2020-08-15] MEDS: HYDROcodon/IBUPROFEN 7.5/200MG 1 TAB TABLET PO PRN (20:15)
[2020-08-15 22:57] VITALS: BP 161/69
[2020-08-16] MEDS: LEVOTHYROXINE 150 MCG TABLET PO SCH (05:46)
[2020-08-16 06:13] VITALS: BP 108/51
[2020-08-16 06:42] LABS: CALCIUM 9.7 mg/dL (8.5-10.1); GFR 23.9
[2020-08-16] MEDS: PANTOPRAZOLE 40 MG TABLET. PO SCH (07:48)
[2020-08-16] MEDS: CITALOPRAM 10 MG TABLET. PO SCH (07:48)
[2020-08-16] MEDS: ASPIRIN CHEWABLE 81 MG TABLET. PO SCH (07:48)
[2020-08-16] MEDS: FERROUS SULFATE 325 MG TABLET. PO SCH (07:48)
[2020-08-16] MEDS: CHOLECALCIFEROL (VITAMIN D3) 1,000 UNIT TABLET PO SCH (07:48)
[2020-08-16] MEDS: ALLOPURINOL 100 MG TABLET. PO SCH (07:49)
[2020-08-16] MEDS: POTASSIUM CHLORIDE 20 MEQ TABLET.ER. PO SCH (07:49)
[2020-08-16] MEDS: DOCUSATE SODIUM 100 MG CAPSULE PO SCH (07:49)
[2020-08-16] MEDS: GABAPENTIN 300 MG CAPSULE. PO SCH (07:49)
[2020-08-16] MEDS: PYRIDOXINE 50 MG TABLET. PO SCH (07:50)
[2020-08-16] MEDS: FUROSEMIDE 80 MG TABLET PO SCH (07:50)
[2020-08-16] MEDS: MULTIVITAMIN with MINERAL TABLET. PO SCH (07:50)
[2020-08-16] MEDS: THIAMINE 100 MG TABLET. PO SCH (07:50)
[2020-08-16 07:51] VITALS: BP 108/51
[2020-08-16] MEDS: IPRATROPIUM/ALBUTEROL 20/100mcg/INH INHALER. INH SCH (07:51)
[2020-08-16] MEDS: ATENOLOL 25 MG TABLET PO SCH (07:51)
[2020-08-16] MEDS: GLIMEPIRIDE 2 MG TABLET PO SCH (07:51)
[2020-08-16] MEDS: HYDROcodon/IBUPROFEN 7.5/200MG 1 TAB TABLET PO PRN (08:02)
[2020-08-16] MEDS: DEXAMETHASONE SOD PHOS 4 MG/ML VIAL. IVP SCH (09:00)
[2020-08-16] MEDS ORDERED: POLYETHYLENE GLYCOL 3350 17 GM PACKET. PO SCH (09:00)
--- NOTE | 2020-08-16 09:59 | DS ---
DATE OF DISCHARGE: 08/16/2020 ATTENDING PHYSICIAN: Dr. Guallpa. FINAL DISCHARGE DIAGNOSES: 1. Acute on chronic congestive heart failure, diastolic, improved. 2. Morbid obesity. 3. Obstructive sleep apnea. 4. Oxygen-dependent chronic obstructive pulmonary disease. 5. Chronic kidney disease stage 3. 6. Restless leg syndrome. 7. Type 2 diabetes mellitus. 8. Essential hypertension. 9. Hypothyroidism, on replacement. HISTORY AND PHYSICAL: This is a very pleasant 80-year-old female who has been fairly active. She has been in semi-quarantine at the assisted living for the last several months. She comes in with increasing weight, shortness of breath and vascular congestion, weighed up 15-20 pounds over the last several weeks. She has been drinking quite a bit of excess fluids. She was in acute on chronic congestive heart failure. PHYSICAL EXAMINATION: Please see the dictated note. PERTINENT LABORATORY AND X-RAY STUDIES: Admission hemoglobin was 11.2 g/dL. White count 6800. Serial chemistries were drawn. Admission creatinine was 2.3. It improved to 1.9 and eventually leveled out at 2.0 mg/dL. BUN was 69, potassium 4.0 mEq. Nonfasting blood sugar well controlled in the low 100s. Her admission weight was 110 kilograms, this improved down to 106 kilograms. She lost approximately 10 pounds based on our scale. COURSE IN THE HOSPITAL: The patient was admitted with volume overload and exacerbation of congestive heart failure. She was given intravenous Lasix twice a day with marked improvement along with fluid restriction and daily weights. Serial chemistries were drawn and her creatinine paradoxically improved. By the fourth hospital day, she was doing much better. Her vital signs were quite stable. Her lungs were clear. Blood pressure was 108/51, pulse 67 and regular, temperature was normal. Oxygen saturation adequate on 3 liters, which is at her baseline and she was ready for discharge. Her lungs were improved and clear and ankle swelling had improved. Therefore, she is discharged home with some adjustment in her diuretics. She had been on 40 b.i.d. of Lasix. I recommended 80 mg once a day in the morning along with daily weights and she can take a second dose in the afternoon if the weight goes up. She will continue her allopurinol 100 mg daily, aspirin 81 mg daily, atenolol 25 mg daily, Lipitor 20 mg daily, cholecalciferol, Dexilant 60 mg daily, docusate, Celexa 5 mg daily, ferrous sulfate, Neurontin 300 mg at bedtime and glimepiride 1 mg daily. I continued the hydrocodone, but I extracted the ibuprofen part. Synthroid 150 mcg daily, magnesium oxide, multivitamin, potassium, Requip, thiamine and vitamin B6. For now, I stopped the Aldactone and triamterene/hydrochlorothiazide and metolazone. I do not think she needs these diuretics. I recommended a followup visit and recheck chemistries in 1 month. She was discharged then from our hospital in stable condition with explicit instructions and followup care. VIELKA GUALLPA MD DR: DAVID/shari JOB#: [id number] / [id number] Rosalio Arias MD
--- NOTE | 2020-08-16 10:12 | NUR ---
Spoke with RN at [facility] about pt discharge information. Pt is independent at facility, discharge instructions reviewed with pt and verbalized understanding. Awaiting for son to p/u at 1030.
--- NOTE | 2020-08-16 10:30 | NUR ---
Discharge Note: BOBBI EASTMAN [address] [place] [address] Discharge instructions and discharge home medications reviewed with Patient and a copy given. All questions have been answered and understanding verbalized. Report given to Nurse at [facility] facility. Discontinued IV line. Patient discharged to Home or Self Care to [facility] with Self via Wheelchair to son's vehicle to transport back to home.
[2020-08-19] MEDS ORDERED: LEVOTHYROXINE 75 MCG TABLET PO SCH (06:00)
== END 2020-08-16 10:30 | disposition home health service (06) | DRG 291 ==
LOC: ER 14:52 → 1 SOUTH 19:39
PROVIDERS: ADMIT Internal Medicine; ATTEND Hospitalist
DX: I13.0 Hypertensive heart and chronic kidney disease with heart failure and stage 1 through stage 4 chronic kidney disease, or unspecified chronic kidney disease (principal); I50.23 Acute on chronic systolic (congestive) heart failure; N17.9 Acute kidney failure, unspecified; Z68.41 Body mass index [BMI] 40.0-44.9, adult; E11.22 Type 2 diabetes mellitus with diabetic chronic kidney disease; E03.9 Hypothyroidism, unspecified; E66.01 Morbid (severe) obesity due to excess calories; E78.00 Pure hypercholesterolemia, unspecified; E78.5 Hyperlipidemia, unspecified; G25.81 Restless legs syndrome; G47.33 Obstructive sleep apnea (adult) (pediatric); J44.9 Chronic obstructive pulmonary disease, unspecified; Z20.828 Contact with and (suspected) exposure to other viral communicable diseases; Z87.891 Personal history of nicotine dependence; Z90.49 Acquired absence of other specified parts of digestive tract; Z96.659 Presence of unspecified artificial knee joint; Z87.01 Personal history of pneumonia (recurrent); F32.9 Major depressive disorder, single episode, unspecified; K21.9 Gastro-esophageal reflux disease without esophagitis; Z88.8 Allergy status to other drugs, medicaments and biological substances; Z91.040 Latex allergy status
CPT/HCPCS: 36415; 71045; 80048; 80053; 81001; 82550; 82947; 83880; 84484; 85025; 90471; 93005; 96374; J1100; J7613; 90686; 99285-25; U0003-CS

== ENCOUNTER 2020-12-18 11:17 | Inpatient (IN) | payer MEDICARE ==
[~2020-12-18] VITALS: Ht 154.9 cm; Wt 99.7 kg
[~2020-12-18 11:17] MED LIST changes: +ACET500T68 PO; +ALLO100T PO; +THIA100T57 PO; +TRIA1TAB3 PO
[2020-12-18] MEDS ORDERED: ASPIRIN 325 MG TABLET PO ONE (11:45)
--- NOTE | 2020-12-18 12:08 | EKG ---
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
[2020-12-18 12:37] LABS: BASO # 0.1 x10^3/uL (0.0-0.2); BASO % 1 % (0-3); EOS # 0.2 x10^3/uL (0.0-0.7); EOS % 3 % (0-3); HEMATOCRIT 37.8 % (36.0-47.0); LYMPH % 14 % (24-48); MEAN CORPUSCULAR HEMOGLOBIN 31 pg (25-35); MEAN CORPUSCULAR HGB CONC 32 g/dL (31-37); MEAN CORPUSCULAR VOLUME 96 fL (79-100); MONO # 0.7 x10^3/uL (0.0-1.1); MONO % 8 % (0-9); NEUT # 5.8 x10^3uL (1.8-7.7); NEUT % 74 % (31-73); PLATELET COUNT 201 x10^3/uL (140-400); RED BLOOD COUNT 3.93 x10^6/uL (3.50-5.40); RED CELL DISTRIBUTION WIDTH 17.2 % (11.5-14.5); WHITE BLOOD COUNT 7.8 x10^3/uL (4.0-11.0)
[2020-12-18 12:45] LABS: CALCIUM 9.3 mg/dL (8.5-10.1); CREATININE 1.6 mg/dL (0.6-1.0); GFR 30.9; POTASSIUM 3.3 mmol/L (3.5-5.1)
[2020-12-18 13:03] LABS: ALBUMIN 3.4 g/dL (3.4-5.0); ALBUMIN/GLOBULIN RATIO 0.8 (1.0-1.7); MAGNESIUM 1.8 mg/dL (1.8-2.4); TOTAL BILIRUBIN 0.4 mg/dL (0.2-1.0); TOTAL PROTEIN 7.5 g/dL (6.4-8.2)
[2020-12-18] MEDS ORDERED: ENOXAPARIN ** NOTE DOSE ** SYRINGE SQ ONE (13:30)
[2020-12-18] MEDS ORDERED: ONDANSETRON PF 4 MG/2 ML VIAL. IVP PRN (14:15)
[2020-12-18 14:19] LABS: BILIRUBIN,URINE NEG (NEG); CLARITY,URINE CLEAR; COLOR,URINE YELLOW; GLUCOSE,URINE NEG (NEG)
[2020-12-18 14:20] LABS: BACTERIA,URINE FEW /HPF (0-FEW); NITRITE,URINE NEG (NEG); RBC,URINE OCC /HPF (0-2); SQUAMOUS EPITHELIAL CELL,UR MANY /LPF; UROBILINOGEN,URINE 0.2 mg/dL (0.2 mg/dL); WBC,URINE OCC /HPF (0-4)
--- NOTE | 2020-12-18 14:46 | PHYS DOC ---
Past History Past Medical History: CHF, COPD, Depression, GERD, High Cholesterol, Heart Disease, Hypertension, Pneumonia, Other Additional Past Medical Histor: RLS, HYPERGLYCEMIA, NEUROPATHY Past Surgical History: Appendectomy, Knee Replacement, Tonsillectomy Smoking: Quit Greater Than 1 Year Alcohol Use: None Drug Use: None General Adult EDM: Chief Complaint: SHORTNESS OF BREATH HPI: HPI: 80-year-old female presents with report of dyspnea with exertion that became worse today. Patient does report history of CHF as well as COPD. Reports she is on chronic supplemental oxygen at 2 L via nasal cannula. Patient reports shortness of air became worse today while she was going to breakfast at her residence at the [facility]. Patient reports her O2 sat was noted to drop to "54%" on her 2 L nasal cannula. Denies fever/chills. Denies trauma. Reports she feels that her output is higher than her input. Denies calf tenderness. Reports some BLE edema. Patient denies known sick contacts. Denies known exposure to COVID-19. Patient reports she received her second COVID vaccination today at 1030. Review of Systems: Review of Systems: Constitutional: Denies fever or chills Eyes: Denies redness or eye pain HENT: Denies nasal congestion or sore throat Respiratory: Reports cough and shortness of breath Cardiovascular: Denies chest pain or palpitations GI: Denies abdominal pain, nausea, or vomiting : Denies dysuria or hematuria Musculoskeletal: Denies back pain; reports BLE swelling Integument: Denies rash or skin lesions Neurologic: Denies headache, focal weakness or sensory changes Complete systems were reviewed and found to be within normal limits, except as documented in this note. Current Medications: Current Meds: Current Medications Medications (Trade) Dose Ordered Sig/[facility] Start Time Stop Time Status Last Admin Dose Admin Aspirin (Tla Aspirin) 325 mg 1X ONCE 12/18/20 11:45 12/18/20 11:49 DC 12/18/20 12:08 325 MG Enoxaparin Sodium (Lovenox 100mg Syringe) 100 mg 1X ONCE 12/18/20 13:30 12/18/20 13:42 DC 12/18/20 13:41 100 MG Ondansetron HCl (Zofran) 4 mg PRN Q4HRS PRN 12/18/20 14:15 12/19/20 14:14 Allergies: Allergies: Allergies Coded Allergies Type Severity Reaction Last Updated Verified adhesive tape Allergy Intermediate 12/18/20 Yes amoxicillin Allergy Intermediate 12/18/20 Yes clavulanic acid Allergy Intermediate 12/18/20 Yes latex Allergy Intermediate 12/18/20 Yes Physical Exam: PE: Constitutional: Well developed, well nourished, no acute distress, non-toxic appearance HENT: Normocephalic, atraumatic Eyes: Conjunctiva normal, no discharge Neck: Normal range of motion, supple Lungs & Thorax: No respiratory distress, equal chest rise and fall Abdomen: Soft, no tenderness Skin: Warm, dry, no erythema, no rash Back: No tenderness, no CVA tenderness Extremities: No tenderness, ROM intact, 2+ BLE edema Neurologic: Alert and oriented X 3, no focal deficits noted Psychologic: Affect normal, judgment normal Current Patient Data: Labs: Laboratory Tests Test 12/18/20 12:05 12/18/20 13:50 White Blood Count 7.8 x10^3/uL (4.0-11.0) Red Blood Count 3.93 x10^6/uL (3.50-5.40) Hemoglobin 12.0 g/dL (12.0-15.5) Hematocrit 37.8 % (36.0-47.0) Mean Corpuscular Volume 96 fL (79-100) Mean Corpuscular Hemoglobin 31 pg (25-35) Mean Corpuscular Hemoglobin Concent 32 g/dL (31-37) Red Cell Distribution Width 17.2 % (11.5-14.5) H Platelet Count 201 x10^3/uL (140-400) Neutrophils (%) (Auto) 74 % (31-73) H Lymphocytes (%) (Auto) 14 % (24-48) L Monocytes (%) (Auto) 8 % (0-9) Eosinophils (%) (Auto) 3 % (0-3) Basophils (%) (Auto) 1 % (0-3) Neutrophils # (Auto) 5.8 x10^3uL (1.8-7.7) Lymphocytes # (Auto) 1.0 x10^3/uL (1.0-4.8) Monocytes # (Auto) 0.7 x10^3/uL (0.0-1.1) Eosinophils # (Auto) 0.2 x10^3/uL (0.0-0.7) Basophils # (Auto) 0.1 x10^3/uL (0.0-0.2) Prothrombin Time 10.1 SEC (9.4-11.4) Prothrombin Time INR 1.0 (0.9-1.1) Activated Partial Thromboplast Time 31 SEC (23-33) D-Dimer (Talisha) 0.65 mg/L (0.00-0.50) H Sodium Level 139 mmol/L (136-145) Potassium Level 3.3 mmol/L (3.5-5.1) L Chloride Level 98 mmol/L (98-107) Carbon Dioxide Level 35 mmol/L (21-32) H Anion Gap 6 (6-14) Blood Urea Nitrogen 44 mg/dL (7-20) H Creatinine 1.6 mg/dL (0.6-1.0) H Estimated GFR (Cockcroft-Gault) 30.9 BUN/Creatinine Ratio 28 (6-20) H Glucose Level 90 mg/dL (70-99) Lactic Acid Level 1.3 mmol/L (0.4-2.0) Calcium Level 9.3 mg/dL (8.5-10.1) Magnesium Level 1.8 mg/dL (1.8-2.4) Total Bilirubin 0.4 mg/dL (0.2-1.0) Aspartate Amino Transferase (AST) 21 U/L (15-37) Alanine Aminotransferase (ALT) 25 U/L (14-59) Alkaline Phosphatase 83 U/L (46-116) Creatine Kinase 92 U/L (26-192) Creatine Kinase MB (Mass) 2.0 ng/mL (0.0-3.6) Creatine Kinase MB Relative Index 2.2 % (0-4) Troponin I Quantitative < 0.017 ng/mL (0-0.055) AI-Hrb-P-Type Natriuretic Peptide 449 pg/mL (0-449) Total Protein 7.5 g/dL (6.4-8.2) Albumin 3.4 g/dL (3.4-5.0) Albumin/Globulin Ratio 0.8 (1.0-1.7) L Lipase 87 U/L (73-393) Urine Collection Type Unknown Urine Color Yellow Urine Clarity Clear Urine pH 7.0 Urine Specific [place] 1.015 Urine Protein Neg (NEG-TRACE) Urine Glucose (UA) Neg mg/dL (NEG) Urine Ketones (Stick) Neg mg/dL (NEG) Urine Blood Neg (NEG) Urine Nitrite Neg (NEG) Urine Bilirubin Neg (NEG) Urine Urobilinogen Dipstick 0.2 mg/dL (0.2 mg/dL) Urine Leukocyte Esterase Neg (NEG) Urine RBC Occ /HPF (0-2) Urine WBC Occ /HPF (0-4) Urine Squamous Epithelial Cells Many /LPF Urine Bacteria Few /HPF (0-FEW) Vital Signs: Vital Signs Date Time Temp Pulse Resp B/P (MAP) Pulse Ox O2 Delivery O2 Flow Rate FiO2 12/18/20 13:45 60 17 152/77 (102) 95 Nasal Cannula 4.0 12/18/20 11:27 98.0 EKG: EKG: [] Radiology/Procedures: Radiology/Procedures: PROCEDURE: CHEST AP ONLY XR CHEST 1V 12/18/2020 1:35 PM INDICATION: Shortness of air, hypoxia. COMPARISON: 08/13/2020 TECHNIQUE: Portable frontal view of the chest is provided. FINDINGS: The cardiomediastinal silhouette is similar in appearance. Mild chronic interstitial changes are present. No new airspace consolidation. Surgical clips are identified at the neck base. There are no significant pleural effusions. There is no pulmonary vascular congestion. No pneumothorax. No suspicious osseous abnormality. IMPRESSION: Aeration of the lungs appears similar to the prior examination. No new airspace consolidation. Electronically signed by: Kassy Mclaughlin MD (12/18/2020 2:43 PM) [facility] Heart Score: HEART Score for Chest Pain: HEART Score for Chest Pain Response (Comments) Value History Moderately Suspicious 1 ECG Normal 0 Age > 65 2 Risk Factors >3 Risk Factors or Hx CAD 2 Troponin < Normal Limit 0 Total 5 Risk Factors: Risk Factors: DM, Current or recent (<one month) smoker, HTN, HLP, family history of CAD, obesity. Risk Scores: Score 0 - 3: 2.5% MACE over next 6 weeks - Discharge Home Score 4 - 6: 20.3% MACE over next 6 weeks - Admit for Clinical Observation Score 7 - 10: 72.7% MACE over next 6 weeks - Early Invasive Strategies Course & Med Decision Making: Course & Med Decision Making History of COPD and CHF.Pertinent Labs and Imaging studies reviewed. (See chart for details) Elderly patient presents from assisted living with report of dyspnea with exertion and hypoxia. Patient with history of COPD and CHF. Patient reports pulse oximetry down to 54 % on 2 L nasal cannula. Patient improved with increased supplemental O2. Patient reports she got her second COVID-19 vaccination today. Cannot fully exclude a COVID-19 infection. Patient does deny fever or chills. COVID-[address] COVID-19 testing pending. EKG stable. Labs obtained and posted to chart. WBC and lactic acid within n ormal limits. Hypokalemia addressed. BNP stable. Troponin negative. D-dimer slightly elevated. Cannot perform CTA chest given patient's decreased GFR (baseline per [employer] review). Venous Dopplers therefore ordered and empiric Lovenox provided. CXR stable. Patient requiring admission for further evaluation and treatment. Discussed with Dr. Price (hospitalist) who is in agreement with admission. Dr. Price requests to hold VQ scan at this time. Reports he will assess need for further work-up. Discussed findings and plan with patient, who acknowledges understanding and agreement. COVID-19 CRITERIA: The patient was evaluated during the global COVID-19 pandemic, and that diagnosis was suspected/considered upon their initial presentation. Their evaluation, treatment and testing was consistent with current guidelines for patients who present with complaints or symptoms that may be related to COVID-19. Dragon Disclaimer: Dragon Disclaimer: This electronic medical record was generated, in whole or in part, using a voice recognition dictation system. Departure Departure: Impression: Primary Impression: Acute and chronic respiratory failure with hypoxia Additional Impressions: Elevated d-dimer Hypokalemia Suspected 2019 novel coronavirus infection Disposition: ADMITTED INPT THIS HOSP Admitting Physician: Darci Price Condition: STABLE Referrals: ANDRÉS HERNANDEZ MD (PCP) COVID-19 Assessment COVID-19 Patient Risks: Age 65 or older: Yes Sign of co-morbidity: Yes Exp to person + for COVID: No Exp to PUI: No Travel from affected area: Yes Lower respiratory symptoms: Yes Fever: No Other: No PPE Use: Full PPE with N95 mask or PAPR: Yes Critical Care Time Critical care time was 30 minutes which includes time at bedside, spent in discussion of patient's care with specialists and/or family members, with interpretation of laboratory and/or radiological studies and is exclusive of procedures. RAMON FALCON DO Dec 18, 2020 14:46
--- NOTE | 2020-12-18 14:46 | RAD ---
XR CHEST 1V 12/18/2020 1:35 PM INDICATION: Shortness of air, hypoxia. COMPARISON: 08/13/2020 TECHNIQUE: Portable frontal view of the chest is provided. FINDINGS: The cardiomediastinal silhouette is similar in appearance. Mild chronic interstitial changes are pres ent. No new airspace consolidation. Surgical clips are identified at the neck base. There are no significant pleural effusions. There is no pulmonary vascular congestion. No pneumothora x. No suspicious osseous abnormality. IMPRESSION: Aeration of the lungs appears similar to the prior examination. No new airspace consolidation. Electronically signed by: Kassy Mclaughlin MD (12/18/2020 2:43 PM) [facility]
--- NOTE | 2020-12-18 15:34 | RAD ---
Exam: Bilateral lower extremity venous duplex study INDICATION: Leg swelling TECHNIQUE: Using a combination of real-time ultrasound imaging and color-flow and pulse Doppler imagi ng techniques along with graded compression and augmentation, duplex evaluation of the deep venous sy stems of bilateral lower extremity was performed. Multiple images were obtained. Findings: There is no sonographic evidence for deep venous thrombosis involving the visualized deep venous stru ctures of the bilateral lower extremity. IMPRESSION: No acute DVT in the bilateral lower extremities. Electronically signed by: Dg Glez MD (12/18/2020 3:32 PM) [facility]
--- NOTE | 2020-12-18 16:05 | NUR ---
ADMIT-PT ARRIVES VIA STRETCHER WITH EMS FROM ED. SHE IS ON 4L/NC O2, NO OTHER EQUIPMENT IN USE. AMBULATES TO BED FROM COT. VS ASSESSED, TELEMETRY INITIATED, ID BRACELET APPLIED.
[2020-12-18 16:16] VITALS: BP 94/84
[2020-12-18] MEDS ORDERED: POTA20TA4 PO (16:46)
[2020-12-18] MEDS ORDERED: METO2.5T PO (16:46)
[2020-12-18] MEDS ORDERED: FURO80TA3 PO (16:46)
[2020-12-18] MEDS ORDERED: ALLO100T PO (16:46)
[2020-12-18] MEDS ORDERED: SENN8.8S5 PO (16:46)
[2020-12-18] MEDS ORDERED: LEVO75TA5 PO (20:29)
[2020-12-18] MEDS ORDERED: ACET500T68 PO (20:29)
[2020-12-18] MEDS: rOPINIRole 1 MG TABLET. PO SCH (21:06)
[2020-12-18] MEDS: POTASSIUM CHLORIDE 20 MEQ TABLET.ER. PO SCH (21:06)
[2020-12-18] MEDS: ATORVASTATIN CALCIUM 20 MG TABLET PO SCH (21:06)
[2020-12-18] MEDS: ACETAMINOPHEN 500 MG TABLET PO PRN (21:12)
[2020-12-18 23:09] VITALS: BP 97/51
[2020-12-19] MEDS: LEVOTHYROXINE 75 MCG TABLET PO SCH (05:16)
--- NOTE | 2020-12-19 05:33 | NUR ---
Pt sitting up at bedside when approached for assessment. Pt is AOX4. Pt complained of pain in feet. PRN Tylenol was given as indicated. Pt states that the pain is chronic neuropathy. Call light in reach. Will continue to monitor.
[2020-12-19 06:03] VITALS: BP 111/62
[2020-12-19] MEDS: FUROSEMIDE 80 MG TABLET PO SCH ×2 (08:18→13:53)
[2020-12-19] MEDS: DOCUSATE SODIUM 100 MG CAPSULE PO SCH (08:18)
[2020-12-19] MEDS: ASPIRIN CHEWABLE 81 MG TABLET. PO SCH (08:18)
[2020-12-19] MEDS: ATENOLOL 25 MG TABLET PO SCH (08:18)
[2020-12-19] MEDS: CITALOPRAM 10 MG TABLET. PO SCH (08:19)
[2020-12-19] MEDS: metOLazone 2.5 MG TABLET PO SCH (08:19)
[2020-12-19] MEDS: MULTIVITAMIN with MINERAL TABLET. PO SCH (08:19)
[2020-12-19] MEDS: POTASSIUM CHLORIDE 20 MEQ TABLET.ER. PO SCH ×2 (08:19→19:53)
[2020-12-19] MEDS: FERROUS SULFATE 325 MG TABLET. PO SCH (08:19)
[2020-12-19] MEDS: ALLOPURINOL 100 MG TABLET. PO SCH (08:19)
[2020-12-19] MEDS: PANTOPRAZOLE 40 MG TABLET. PO SCH (08:20)
[2020-12-19] MEDS: PYRIDOXINE 50 MG TABLET. PO SCH (08:20)
[2020-12-19] MEDS: CHOLECALCIFEROL (VITAMIN D3) 1,000 UNIT TABLET PO SCH (08:20)
[2020-12-19] MEDS: THIAMINE 100 MG TABLET. PO SCH (08:20)
[2020-12-19] MEDS: GLIMEPIRIDE 2 MG TABLET PO SCH (08:20)
[2020-12-19] MEDS ORDERED: MAGNESIUM SULFATE 1GM 100 ML IV ONE (09:00)
--- NOTE | 2020-12-19 09:05 | HP ---
ADMIT DATE: 12/18/2020 ATTENDING PHYSICIAN: Dr. Guallpa. CHIEF COMPLAINT: Shortness of breath. HISTORY OF PRESENT ILLNESS: The patient is a pleasant 80-year-old female who is quite alert. She has been a resident of a local [place] [facility] care facility with chronic medical issues. She has advance COPD and a history of congestive heart failure. She normally wears 2 liters of supplemental oxygen. She has had increasing shortness of breath. Her chest x-ray shows vascular congestion and exacerbation of her congestive heart failure. There is no chest pain. She has COVID swab pending. She has no other symptoms. She is admitted and with exacerbation of congestive heart failure. PAST MEDICAL HISTORY: Significant for COPD, oxygen dependent; acute on chronic diastolic congestive heart failure and acute on chronic respiratory failure. She also has hyperlipidemia and hypertension. CURRENT MEDICINES: From the [place] [facility] [place] include Tylenol, allopurinol, aspirin, atenolol, Lipitor, cholecalciferol, Dexilant, docusate, escitalopram, ferrous sulfate, Neurontin, hydrocodone, ibuprofen, Synthroid, magnesium hydroxide, multivitamin, potassium, Requip, senna, thiamine and multivitamin. ALLERGIES: She has allergies to AMOXICILLIN, CLAVULANIC ACID, LATEX, and ADHESIVE TAPE, exact reaction is unclear. SOCIAL HISTORY: Nonsmoker, nondrinker. FAMILY HISTORY: Noncontributory. REVIEW OF SYSTEMS: Significant for the gradual shortness of breath, dyspnea with very minimal exertion. No nausea or vomiting, COVID exposure, cough, congestion. All other systems reviewed and turned to be negative. PHYSICAL EXAMINATION: GENERAL: When I saw her, this is a pleasant female who is quite alert. INITIAL VITAL SIGNS: Showed a blood pressure 111/62, pulse is 74 and regular, temperature 97.0 degrees Fahrenheit, oxygen saturation 94% on 3 liters of nasal cannula. HEENT: Head is without trauma. Pupils are reactive. Sclerae nonicteric. Oropharynx is clear. NECK: Supple, no bruits identified. LUNGS: Crackles at both bases. CARDIOVASCULAR: Showed distant heart tones. No gallops. Peripheral pulses are palpable and full. ABDOMEN: Obese, protuberant. No organomegaly. EXTREMITIES: Showed 1+ pitting edema. NEUROLOGIC: Focally intact. Speech is fluent. Outside Sales Associate intact and symmetrical. SKIN: Warm and dry. PERTINENT LABORATORY AND X-RAY STUDIES: Chest x-ray shows cardiomegaly and vascular congestion, no acute infiltrates identified. Hemoglobin is 12.0 g/dL with the white count of 7800. Electrolytes: Sodium 139 mEq, potassium 3.3 mEq per liter. Creatinine is 1.6 mg percent. Cardiac enzymes negative for coronary ischemia. ASSESSMENT: 1. An 80-year-old female with acute on chronic congestive heart failure, diastolic. 2. Acute on chronic respiratory failure. 3. Oxygen-dependent chronic obstructive pulmonary disease. 4. Chronic kidney disease stage 3. 5. Hypothyroidism. 6. Hyperlipidemia. PLAN: 1. Admit to the inpatient. 2. Continue Lasix. 3. Potassium and magnesium replacement. 4. Serial chemistries. 5. Fluid restriction. 6. Daily weights. 7. Continue home meds. VIELKA GUALLPA MD DR: DAVID/shari JOB#: [id number] / [id number]
[2020-12-19 11:02] VITALS: BP 128/61
[2020-12-19] MEDS: HYDROcodone/APAP 7.5/325MG 1 TAB TABLET PO PRN ×2 (13:33→19:52)
[2020-12-19 19:44] VITALS: BP 121/63
[2020-12-19] MEDS: rOPINIRole 1 MG TABLET. PO SCH (19:52)
[2020-12-19] MEDS: ATORVASTATIN CALCIUM 20 MG TABLET PO SCH (19:53)
[2020-12-19] MEDS: ACETAMINOPHEN 500 MG TABLET PO PRN (23:22)
[2020-12-20] MEDS: HYDROcodone/APAP 7.5/325MG 1 TAB TABLET PO PRN ×2 (03:46→09:20)
[2020-12-20] MEDS: LEVOTHYROXINE 75 MCG TABLET PO SCH (05:32)
[2020-12-20 05:48] VITALS: BP 104/48
[2020-12-20] MEDS: PANTOPRAZOLE 40 MG TABLET. PO SCH (07:48)
[2020-12-20 08:10] VITALS: BP 104/62
--- NOTE | 2020-12-20 08:19 | NUR ---
NSG NOTE; CARDIOLOGY CONSULT CALLED TO [facility] CARDIO OFFICE STAFF AT 0818
--- NOTE | 2020-12-20 08:24 | NUR ---
Nursing note. Pt blood pressure at 08:10 was 104/62. Dr. Price was informed at 0815 ordered to give atenolol and Lasix
[2020-12-20 08:51] LABS: CALCIUM 9.3 mg/dL (8.5-10.1); CREATININE 1.5 mg/dL (0.6-1.0); GFR 33.3; POTASSIUM 3.1 mmol/L (3.5-5.1)
[2020-12-20] MEDS: metOLazone 2.5 MG TABLET PO SCH (09:00)
[2020-12-20] MEDS: DOCUSATE SODIUM 100 MG CAPSULE PO SCH (09:06)
[2020-12-20] MEDS: ALLOPURINOL 100 MG TABLET. PO SCH (09:06)
[2020-12-20] MEDS: ASPIRIN CHEWABLE 81 MG TABLET. PO SCH (09:06)
[2020-12-20] MEDS: THIAMINE 100 MG TABLET. PO SCH (09:06)
[2020-12-20] MEDS: CHOLECALCIFEROL (VITAMIN D3) 1,000 UNIT TABLET PO SCH (09:06)
[2020-12-20] MEDS: POTASSIUM CHLORIDE 20 MEQ TABLET.ER. PO SCH (09:07)
[2020-12-20] MEDS: FUROSEMIDE 80 MG TABLET PO SCH (09:07)
[2020-12-20] MEDS: MULTIVITAMIN with MINERAL TABLET. PO SCH (09:07)
[2020-12-20] MEDS: CITALOPRAM 10 MG TABLET. PO SCH (09:08)
[2020-12-20] MEDS: ATENOLOL 25 MG TABLET PO SCH (09:08)
[2020-12-20] MEDS: FERROUS SULFATE 325 MG TABLET. PO SCH (09:14)
[2020-12-20] MEDS: PYRIDOXINE 50 MG TABLET. PO SCH (09:18)
[2020-12-20] MEDS: GLIMEPIRIDE 2 MG TABLET PO SCH (09:19)
[2020-12-20 10:52] VITALS: BP 109/58
[2020-12-20] MEDS ORDERED: MAGNESIUM SULFATE 1GM 100 ML IV ONE (11:00)
--- NOTE | 2020-12-20 13:14 | DS ---
DATE OF DISCHARGE: 12/20/2020 FINAL DISCHARGE DIAGNOSES: 1. Acute on chronic congestive heart failure, diastolic. 2. Acute on chronic respiratory failure, improved. 3. Oxygen-dependent chronic obstructive pulmonary disease. 4. Chronic kidney disease, stage 3. 5. Hypothyroidism. 6. Hyperlipidemia. 7. Hypokalemia due to diuretics, asymptomatic. HISTORY AND PHYSICAL: The patient is an 80-year-old female well known to us from previous admissions, admitted through the ED with increasing shortness of breath. She has been taking some [id number] ibuprofen, which caused fluid retention. Her chest x-ray was wet with vascular congestion. She had an exacerbation of CHF. She does not drink excess fluids. PHYSICAL EXAMINATION: Please see my dictated note. PERTINENT LABORATORY AND X-RAY STUDIES: Admission hemoglobin was 12.0 g/dL with white count of 7800. Electrolytes were drawn. Potassium 3.3 mEq. She was given oral supplementation along with magnesium replacement. This will be followed up as an outpatient. She was asymptomatic. Creatinine on admission was 1.6 mg/dL, repeated was down to 1.5, BUN was improved at 39 mg/dL. Two sets of cardiac enzymes negative for coronary ischemia. BNP was 449. Chest x-ray on admission showed mild cardiomegaly. There is minimal vascular congestion. No acute infiltrates identified. Doppler studies of the lower extremities showed no evidence of deep vein thrombosis. COURSE IN THE HOSPITAL: The patient was admitted to the inpatient service. Her COVID-19 virus swab came back negative. Her diet was advanced. We continued her b.i.d. Lasix along with potassium and magnesium replacement. She did well. She was maintained on her baseline supplemental oxygen, which is chronic and she felt better. Ankle swelling was somewhat improved. By the third hospital day, her vital signs were quite stable. Her blood pressure was 104/62, pulse 68 and regular, her oxygen saturations were adequate and she was afebrile. Her lungs were clear and her cardiovascular exam showed regular heart tones. At this time, she was ready for discharge. Her COVID-19 swab was negative. She was ambulating without any significant difficulties. Therefore, she is discharged home with continuation of her ferrous sulfate, Lipitor, atenolol 25 mg daily, aspirin 81 mg daily, hydrocodone p.r.n., Tylenol p.r.n., Neurontin 300 mg at bedtime, Lexapro 5 mg daily, Requip 3 mg at bedtime, potassium supplementation 20 mEq b.i.d., Lasix 80 mg b.i.d., docusate daily, magnesium hydroxide, senna, Dexilant 60 mg daily, glimepiride 1 mg daily, Synthroid 75 mcg daily alternating with 150 mcg, thiamine, vitamin D3, multivitamin, allopurinol 100 mg daily and vitamin B6 daily. She remains a DNR per advanced directives. I recommended a followup CBC and a chem basic in 1 weeks' time on Wednesday12/27/2020. The patient was then discharged from our hospital in stable condition, improved with explicit instructions and followup care. VIELKA GUALLPA MD DR: DAVID/shari JOB#: [id number] / [id number] Rosalio Arias MD
--- NOTE | 2020-12-20 14:22 | NUR ---
Discharge note Pt discharged at [address] with home portable oxygen and picked up by son for return to [facility]
== END 2020-12-20 14:10 | disposition home or self-care (01) | DRG 291 ==
LOC: ER 11:17 → 1 SOUTH 13:53
PROVIDERS: ADMIT Hospitalist; ATTEND Hospitalist
DX: I13.0 Hypertensive heart and chronic kidney disease with heart failure and stage 1 through stage 4 chronic kidney disease, or unspecified chronic kidney disease (principal); I50.33 Acute on chronic diastolic (congestive) heart failure; J96.21 Acute and chronic respiratory failure with hypoxia; E03.9 Hypothyroidism, unspecified; E78.00 Pure hypercholesterolemia, unspecified; E78.5 Hyperlipidemia, unspecified; E87.6 Hypokalemia; G25.81 Restless legs syndrome; J44.9 Chronic obstructive pulmonary disease, unspecified; N18.30 Chronic kidney disease, stage 3 unspecified; T50.2X5A Adverse effect of carbonic-anhydrase inhibitors, benzothiadiazides and other diuretics, initial encounter; Z20.822 Contact with and (suspected) exposure to COVID-19; Z66 Do not resuscitate; Z23 Encounter for immunization; Z79.82 Long term (current) use of aspirin; Z79.84 Long term (current) use of oral hypoglycemic drugs; Z79.899 Other long term (current) drug therapy; Z87.891 Personal history of nicotine dependence; Z90.49 Acquired absence of other specified parts of digestive tract; Z96.659 Presence of unspecified artificial knee joint; Z99.81 Dependence on supplemental oxygen; F32.9 Major depressive disorder, single episode, unspecified; K21.9 Gastro-esophageal reflux disease without esophagitis; Z88.8 Allergy status to other drugs, medicaments and biological substances
CPT/HCPCS: 36415; 71045; 80048; 80053; 81001; 82553; 83605; 83690; 83735; 83880; 84484; 85025; 85379; 85610; 85730; 87040; 93005; 93970; 96372; J1650; J3475; U0003; 99291-25